=== PATIENT | female | born 1950 | race Caucasian/White ===

== ENCOUNTER → 2017-03-27 | Outpatient (CLI) | payer MEDICARE ==
[~2017-03-27] MED LIST: ACHYD1T PO; ALPR0.5T7 PO; AMLO5TAB2 PO; ASP81TEC PO; ASPI-999 PO; ATOR40TA70 PO; BUPR150T9 PO; BUPR75TA5 PO; CALC-196 PO; CALC-80 PO; CEPH500C PO; CHOL10003 PO; CHOL5000 PO; CYCL10TA9 PO; CYCL5TAB PO; DESV50TA PO; ESCI20TA38 PO; FAMO20TA3 PO; FENO134C PO; FENO135C PO; FISH1CAP15 PO; GEMF600T3 PO; LACT1CAP15 PO; LOSA50TA36 PO; LOSA50TA6 PO; METO100T2 PO; MTF500T PO; MULT-608 PO; NAPR-689 PO; NITR-65 PO; OMEP20TA2 PO; OXYB10TA PO; PRAM0.252 PO; PRAM0.5T2 PO; SCR1T1 PO; SIMV40TA4 PO; TAMS0.4C9 PO; TRAM-42 PO; TRAM50TA2 PO; TRAZ-144 PO; TRAZ150T42 PO
--- NOTE | 2017-03-31 09:32 | Diagnostic Imaging Report ---
EXAMINATION: Bilateral screening mammogram 2D views with tomosynthesis. The current study was also evaluated with a Computer Aided Detection (CAD) system. INDICATION: Screening. PERSONAL HISTORY: No current complaints stated on the questionnaire. COMPARISON: 08/23/2015. FINDINGS: The breasts are composed of heterogeneously dense parenchyma which may decrease mammographic sensitivity. The previously seen circumscribed nodules in the left breast appear slightly larger within the central aspect of the left breast. The right breast demonstrates no significant change in the dense parenchyma and benign-appearing calcifications. IMPRESSION: Enlarged circumscribed nodules in the central aspect of the left breast. These are likely related to cysts. An ultrasound evaluation of the left breast is recommended. ACR BI-RADS Category 0: Incomplete. (Needs additional imaging evaluation). Result letter will be mailed to the patient. Note: At least 10% of breast cancer is not imaged by mammography. Dictated by: Dictated on workstation # [id number]
== END ==
LOC: RAD 13:34
PROVIDERS: ATTEND Nurse Practitioner Family
DX: Z12.31 Encounter for screening mammogram for malignant neoplasm of breast (principal)
CPT/HCPCS: 77067

== ENCOUNTER → 2017-04-20 | Outpatient (CLI) | payer MEDICARE ==
--- NOTE | 2017-04-20 20:18 | Diagnostic Imaging Report ---
EXAM: Left breast ultrasound. INDICATION: Left breast nodules. FINDINGS: There are coarsely calcified nodules in the left breast which correlates with mammographic findings of 03/27/2017. There are also minimally complicated and simple cysts seen at 4:30 o'clock position, 6 cm from the nipple and at the 2 o'clock zone 8 cm from the nipple. There is also a simple cyst at 12 o'clock zone 2 cm from the nipple. These lesions appear to correlate with the nodules and calcifications seen on mammography with no suspicious mass identified otherwise in the four-quadrant retroareolar region of the left breast. IMPRESSION: Coarsely calcified lesions and cysts are seen explaining the nodules noted on recent mammogram with no suspicious mass. Annual screening mammogram is recommended. BI-RADS 2. ACR BI-RADS Category 2: Benign findings. Result letter will be mailed to the patient. Note: At least 10% of breast cancer is not imaged by mammography. Dictated by: Dictated on workstation # [id number]
== END ==
LOC: RAD 13:54
PROVIDERS: ATTEND Nurse Practitioner Family
DX: R92.1 Mammographic calcification found on diagnostic imaging of breast (principal)
CPT/HCPCS: 76641

== ENCOUNTER → 2017-09-14 | Outpatient (CLI) | payer MEDICARE ==
--- NOTE | 2017-09-14 16:43 | Diagnostic Imaging Report ---
INDICATION: Pain and swelling. Three views were obtained. FINDINGS: The alignment is normal. There are minimal degenerative changes. There is no fracture or dislocation. There appears to be small joint effusion. IMPRESSION: Mild degenerative changes with probable knee joint effusion. Dictated by: Dictated on workstation # [id number]
== END ==
LOC: RAD 16:03
PROVIDERS: ATTEND Nurse Practitioner Family
DX: M17.12 Unilateral primary osteoarthritis, left knee (principal)
CPT/HCPCS: 73562

== ENCOUNTER → 2017-11-16 | Outpatient (CLI) | payer MEDICARE ==
[2017-11-16 16:28] LABS: BASOPHILS # (AUTO) 0.1 10^3/uL (0.0-0.1); BASOPHILS % (AUTO) 1 % (0-10); EOSINOPHILS # (AUTO) 0.2 10^3/uL (0.0-0.3); EOSINOPHILS % (AUTO) 3 % (0-10); HEMATOCRIT 38 % (35-52); LYMPHOCYTES # (AUTO) 2.8 X 10^3 (1.0-4.0); LYMPHOCYTES % (AUTO) 32 % (12-44); MEAN CORPUSCULAR HEMOGLOBIN 30 PG (25-34); MEAN CORPUSCULAR HGB CONC 34 G/DL (32-36); MEAN CORPUSCULAR VOLUME 88 FL (80-99); MEAN PLATELET VOLUME 10.4 FL (7.4-10.4); MONOCYTES # (AUTO) 0.7 X 10^3 (0.0-1.0); MONOCYTES % (AUTO) 8 % (0-12); NEUTROPHILS % (AUTO) 57 % (42-75); PLATELET COUNT 264 10^3/uL (130-400); RED BLOOD COUNT 4.35 10^6/uL (4.35-5.85); RED CELL DISTRIBUTION WIDTH 13.9 % (10.0-14.5); WHITE BLOOD COUNT 8.7 10^3/uL (4.3-11.0)
[2017-11-16 16:51] LABS: ALBUMIN 4.6 GM/DL (3.2-4.5); BILIRUBIN,TOTAL 0.4 MG/DL (0.1-1.0); CALCIUM 10.3 MG/DL (8.5-10.1); CREATININE SERUM 1.01 MG/DL (0.60-1.30); POTASSIUM 4.2 MMOL/L (3.6-5.0); TOTAL PROTEIN 7.1 GM/DL (6.4-8.2)
== END ==
LOC: RT 16:16
PROVIDERS: ATTEND Nurse Practitioner Family
DX: R42 Dizziness and giddiness (principal)
CPT/HCPCS: 36415; 80053; 85025; 93005

== ENCOUNTER → 2017-12-10 | Outpatient (CLI) | payer MEDICARE | LOC: CARD 08:21 | PROVIDERS: ATTEND Internal Medicine Cardiovascular Disease | DX: R06.02 Shortness of breath (principal); E11.22 Type 2 diabetes mellitus with diabetic chronic kidney disease; N18.3 Chronic kidney disease, stage 3 (moderate); I12.9 Hypertensive chronic kidney disease with stage 1 through stage 4 chronic kidney disease, or unspecified chronic kidney disease; E78.5 Hyperlipidemia, unspecified; R53.83 Other fatigue; E66.9 Obesity, unspecified | CPT/HCPCS: 93306 ==

== ENCOUNTER → 2018-09-06 | Outpatient (CLI) | payer MEDICARE ==
[~2018-09-06] MED LIST changes: -LOSA50TA36 PO; +LOSA50TA63 PO
--- NOTE | 2018-09-06 20:11 | Diagnostic Imaging Report ---
EXAMINATION: PA and lateral Chest at 3:04 p.m. INDICATION: Shortness of breath. FINDINGS: The heart size is within normal limits and stable when compared to 11/09/2013. The lungs are clear. There is no sign of failure, pneumonia, or of a pleural effusion to indicate an acute abnormality. The mediastinum is not widened. The osseous structures are intact. In the interval since the prior exam, a dorsal stimulator device has been inserted. The leads of the device lie at approximately the level of T7-8. IMPRESSION: 1. There is no evidence for an acute cardiopulmonary abnormality. 2. There has been interval insertion of a dorsal stimulator device. Dictated by: Dictated on workstation # [id number]
== END ==
LOC: RAD 14:55
PROVIDERS: ATTEND Nurse Practitioner Family
DX: R06.02 Shortness of breath (principal); Z97.8 Presence of other specified devices
CPT/HCPCS: 71046

== ENCOUNTER → 2018-09-17 | Outpatient (CLI) | payer MEDICARE ==
[2018-09-17 16:35] LABS: BASOPHILS # (AUTO) 0.1 10^3/uL (0.0-0.1); BASOPHILS % (AUTO) 1 % (0-10); EOSINOPHILS # (AUTO) 0.3 10^3/uL (0.0-0.3); EOSINOPHILS % (AUTO) 3 % (0-10); HEMATOCRIT 38 % (35-52); HEMOGLOBIN 12.2 G/DL (11.5-16.0); LYMPHOCYTES # (AUTO) 2.8 X 10^3 (1.0-4.0); LYMPHOCYTES % (AUTO) 28 % (12-44); MEAN CORPUSCULAR HEMOGLOBIN 29 PG (25-34); MEAN CORPUSCULAR HGB CONC 32 G/DL (32-36); MEAN CORPUSCULAR VOLUME 90 FL (80-99); MEAN PLATELET VOLUME 10.4 FL (7.4-10.4); MONOCYTES % (AUTO) 10 % (0-12); NEUTROPHILS % (AUTO) 59 % (42-75); PLATELET COUNT 203 10^3/uL (130-400); RED CELL DISTRIBUTION WIDTH 13.5 % (10.0-14.5); WHITE BLOOD COUNT 10.1 10^3/uL (4.3-11.0)
[2018-09-17 17:01] LABS: ALBUMIN 4.2 GM/DL (3.2-4.5); BILIRUBIN,TOTAL 0.4 MG/DL (0.1-1.0); CALCIUM 9.9 MG/DL (8.5-10.1); CREATININE SERUM 1.19 MG/DL (0.60-1.30); POTASSIUM 4.3 MMOL/L (3.6-5.0); TOTAL PROTEIN 6.6 GM/DL (6.4-8.2)
== END ==
LOC: LAB 16:19
PROVIDERS: ATTEND Nurse Practitioner Family
DX: R10.9 Unspecified abdominal pain (principal)
CPT/HCPCS: 36415; 80053; 85025

== ENCOUNTER → 2018-12-07 | Outpatient (CLI) | payer MEDICARE ==
[~2018-12-07] MED LIST changes: +CATHETER FLUSH 10 ML SYR IV PRN; +REGADENOSON 0.4 MG/5 ML SYR (LEXISCAN) IV ONE
[2018-12-07 09:16] VITALS: BP 146/79
[2018-12-07 09:17] VITALS: BP 146/65
--- NOTE | 2018-12-08 01:10 | STRESS TEST ---
DATE OF SERVICE: 12/07/2018 RESTING AND POST REGADENOSON TECHNETIUM-99M TETROFOSMIN SPECT CT IMAGING ORDERING PHYSICIAN: Dr. Diaz. PRIMARY PHYSICIAN: . CLINICAL DIAGNOSIS: Coronary artery disease. Baseline images were carried out after injection of 10.89 mCi of technetium-99m Tetrofosmin. This was followed by 0.4 mg regadenoson and 29.8 mCi of technetium-99m Tetrofosmin for stress imaging. The patient reported shortness of breath following regadenoson infusion, which resolved in a few minutes. Review of images at rest and following stress does not indicate any distinct perfusion defects consistent with significant myocardial ischemia or infarction. Gated images show normal global left ventricular systolic function with normal regional wall motion. Left ventricular ejection fraction is calculated to be 69%. CONCLUSIONS: 1. No evidence of any significant myocardial ischemia or infarction on this study. 2. Normal regional wall motion. 3. Normal global left ventricular systolic function with a calculated ejection fraction of 69%. Job ID: [id number] DocumentID: [id number] Dictated Date: 12/07/2018 20:53:30 Manufacturing Lead Date: 12/08/2018 01:09:43 Dictated By: TONIE DIAZ MD, MA, FACP, FACC,
== END ==
LOC: CARD 06:59
PROVIDERS: ATTEND Internal Medicine Cardiovascular Disease
DX: I25.10 Atherosclerotic heart disease of native coronary artery without angina pectoris (principal); I65.29 Occlusion and stenosis of unspecified carotid artery; E11.9 Type 2 diabetes mellitus without complications; I10 Essential (primary) hypertension; I73.9 Peripheral vascular disease, unspecified
CPT/HCPCS: 78452; 93017

== ENCOUNTER 2019-02-04 08:16 | Outpatient (RCR) | payer MEDICARE ==
[~2019-02-04 08:16] MED LIST changes: -CATHETER FLUSH 10 ML SYR IV PRN; -OXYB10TA PO; +OXYB10TA2 PO; -REGADENOSON 0.4 MG/5 ML SYR (LEXISCAN) IV ONE; +TRM50T PO
[2019-03-06] MEDS ORDERED: ACHD5005 PO (09:41)
== END 2019-03-21 09:53 | disposition home or self-care (01) ==
PROVIDERS: ATTEND Nurse Practitioner Family
DX: M54.42 Lumbago with sciatica, left side (principal)

== ENCOUNTER 2019-03-06 08:26 | Emergency (ER) | payer MEDICARE ==
[~2019-03-06] VITALS: Ht 170.1 cm; Wt 95.1 kg
[~2019-03-06 08:26] MED LIST changes: +OXYB10TA PO; -OXYB10TA2 PO; -TRM50T PO
--- NOTE | 2019-03-06 08:44 | ED Lower Extremity ---
General Chief Complaint: Lower Extremity Stated Complaint: L FOOT PAIN Source: patient Exam Limitations: no limitations History of Present Illness Date Seen by Provider: Mar 06, 2019 Time Seen by Provider: 08:27 Initial Comments Patient presents to ER by private conveyance with chief complaint of left foot lateral metatarsal pain. She has a history of fracture in the same region a few years ago. She does follow up with egg tester as needed. She has been using T ylenol as needed. She has poor kidney function and diabetes so she does not take NSAIDs. She says the pain only comes when she steps down on the foot and is better when she wears a shoe that when she had an elevated or off loaded from weight she does not have any pain. Allergies and Home Medications Allergies Coded Allergies: phenazopyridine (Verified Allergy, Unknown, 09/10/15) levofloxacin (Verified Adverse Reaction, Mild, N/V, 07/27/15) Home Medications Alprazolam 0.5 Mg Tablet, 0.25 MG PO PRN, (Reported) Amlodipine Besylate 5 Mg Tablet, 5 MG PO DAILY, (Reported) Aspirin 81 Mg Tab.chew, 81 MG PO DAILY, (Reported) Bupropion HCl 150 Mg Tablet.er, 150 MG PO BID, (Reported) Calcium Carbonate/Vitamin D3 1 Each Tablet, 1 EACH PO DAILY, (Reported) Cholecalciferol 5,000 Unit Capsule, 5,000 UNIT PO DAILY, (Reported) Cyclobenzaprine HCl 10 Mg Tablet, 10 MG PO PRN PRN for MUSCLE SPASMS, (Reported) Famotidine 20 Mg Tablet, 20 MG PO DAILY, (Reported) Fenofibrate,Micronized 134 Mg Capsule, 134 MG PO DAILY, (Reported) Fish Oil/Dha/Epa 1 Each Capsule, 2 EACH PO DAILY, (Reported) Losartan Potassium 50 Mg Tablet, 50 MG PO BID, (Reported) Metformin Hcl 500 Mg Tablet, 250 MG PO DAILY, (Reported) TAKE 1/2 OF 500MG TAB Metoprolol Tartrate 100 Mg Tablet, 100 MG PO BID, (Reported) Multivitamins 1 Tab Tablet, 1 TAB PO DAILY, (Reported) Naproxen 500 Mg Tablet, 500 MG PO BID PRN for PAIN, (Reported) Oxybutynin Chloride 10 Mg Tab.er.24, 10 MG PO DAILY, (Reported) Pramipexole Di-HCl 0.5 Mg Tablet, 0.5 MG PO HS, (Reported) Tramadol HCl 50 Mg Tablet, 50 MG PO Q12H PRN for PAIN Prescribed by: ALISA HOLT on 10/03/15 1056 Patient Home Medication List Home Medication List Reviewed: Yes Review of Systems Constitutional: No chills, No diaphoresis EENTM: No ear discharge, No ear pain Respiratory: No cough, No short of breath Cardiovascular: No chest pain, No edema Gastrointestinal: No abdominal pain, No nausea Past Ehschqf-Vwzgss-Dsptlf Hx Patient Social History Alcohol Use: Denies Use Recreational Drug Use: No Smoking Status: Never a Smoker Former Smoker, Quit: Sep 27, 2001 2nd Hand Smoke Exposure: No Recent Foreign Travel: No Contact w/Someone Who Travel: No Recent Hopitalizations: Yes Immunizations Up To Date Date of Pneumonia Vaccine: Dec 24, 2014 Past Medical History Surgeries: Yes (HYST,L ROT.CUFF,BLADDER SLING X2, BILAT SACROILIAC JOINT INJECTION) Respiratory: No Cardiac: No Neurological: No Reproductive Disorders: No Female Reproductive Disorders: Denies Sexually Transmitted Disease: No HIV/AIDS: No Kidney Stones Gastrointestinal: Yes Gastroesophageal Reflux, Chronic Constipation Musculoskeletal: No Chronic Back Pain Endocrine: Yes (TAKES 250MG METFORMIN) Diabetes, Non-Insulin dep Loss of Vision: Bilateral Hearing Impairment: Denies Cancer: No Psychosocial: Yes Anxiety, Depression Integumentary: No Blood Disorders: No Adverse Reaction/Blood Tranf: No Physical Exam Vital Signs Vital Signs - First Documented 03/06/19 08:28 Temp 36.8 Pulse 76 Resp 18 B/P (MAP) 140/48 (78) O2 Delivery Room Air Capillary Refill : Height, Weight, BMI Height: 5'7.00" Weight: 183lbs. 0.0oz. 83.097234vu; 30.45 BMI Method: General Appearance: WD/WN, no apparent distress Respiratory: no respiratory distress, no accessory muscle use Knees: bilateral knee non-tender, bilateral knee normal inspection, bilateral knee no evidence of injury Ankles: left ankle non-tender, left ankle normal inspection, left ankle normal range of motion, left ankle no evidence of injury Feet: bilateral foot normal inspection, bilateral foot normal range of motion, bilateral foot no evidence of injury; left foot bone tenderness (fifth metatarsal), left foot pain (lateral left foot) Neurologic/Psychiatric: no motor/sensory deficits, alert, normal mood/affect, oriented x 3 Skin: normal color, warm/dry Progress/Results/Core Measures Results/Orders My Orders Orders - [place] Foot, Left, 3 Views (03/06/19 08:40) Vital Signs/I&O 03/06/19 08:28 Temp 36.8 Pulse 76 Resp 18 B/P (MAP) 140/48 (78) O2 Delivery Room Air Progress Progress Note : Time: 08:43 Progress Note I suspect the patient's experiencing metatarsalgia secondary to osteoarthritis. With her history of diabetes and occult fracture or pathologic fracture is a possibility. Planned obtain plain films and if the osseous structures are intact we can put her in an orthopedic shoe with follow-up with orthopedics. She has declined anything at this time for pain. Diagnostic Imaging Diagonstic Imaging: Xray Plain Films/CT/US/NM/MRI: other (left foot) Comments NAME: [facility] REC#: [id number] PT STATUS: REG ER : 1950 PHYSICIAN: [place] MD ADMIT DATE: 03/06/19/ER Draft Date of Exam:03/06/19 FOOT, LEFT, 3 VIEWS EXAM: Left foot at 8:59 INDICATION: Lateral foot pain 3 views were obtained. COMPARISON: There are no previous exams available for comparison. FINDINGS: On the lateral view, there is a linear lucency extending through the base of the 5th metatarsal. This finding cannot be identified on the other 2 projections and may merely be secondary to superimposition as opposed to a nondisplaced fracture. Even so, clinical follow-up is recommended. If further imaging is desired, then either CT or preferably MRI would be recommended. No other fracture or acute bony abnormality is appreciated. The soft tissues are unremarkable. IMPRESSION: 1. The linear lucency overlying the base of the 5th metatarsal on the lateral view may merely be secondary to superimposition as opposed to a non-displaced fracture. Recommendations as above. 2. There is no acute bony abnormality noted otherwise. Dictated on workstation # [id number] Dict: 03/06/19 0908 Trans: 03/06/19 0932 [facility] [id number] Interpreted by: KAYKAY WRIGHT MD Electronically signed by: Reviewed: Reviewed by Me Departure Impression Primary Impression: Fracture of fifth metatarsal bone of left foot Qualified Codes: S92.355A - Nondisplaced fracture of fifth metatarsal bone, left foot, initial encounter for closed fracture Disposition: HOME, SELF-CARE Condition: Stable Departure-Patient Inst. Decision time for Depature: 09:38 Referrals: ANA MONTOYA MD (PCP/Family) Primary Care Physician Patient Instructions: Stress Fracture of the Metatarsal Bone (DC) Add. Discharge Instructions: It's difficult to be certain but I suspect there may be a fracture in the fifth metatarsal of your left foot. I would recommend follow-up in about a week with either primary care or your egg tester. It would be reasonable at that time to repeat x-rays to see if there is evidence of a healing fracture to confirm our suspicion more if desired an MRI of the foot could be obtained. Rest the foot, ice it for 20 minutes every 4 hours for the first 2-3 days and elevated above the level of your heart when not in use. Gentle compression with an Steve bandage will be helpful for discomfort. A postop shoe will help reduce pain with walking. Tylenol 1000 mg every 8 hours as necessary for pain. For severe breakthrough pain you may use a hydrocodone one tablet every 6 hours however this will cause constipation and drowsiness. All discharge instructions reviewed with patient and/or family. Voiced understanding. Scripts Hydrocodone Bit/Acetaminophen (Hydrocodone/Acetaminophen 5/325mg Tablet) 1 Tab Tab 1 EACH PO Q4-6HR PRN for PAIN-MODERATE MDD 10 for 3 Days, #10 TAB 0 Refills Prov: [place] 03/06/19 [place] Mar 06, 2019 08:44
--- NOTE | 2019-03-06 08:56 | NUR ---
X RAY DONE AT BEDSIDE.
--- NOTE | 2019-03-06 09:33 | Diagnostic Imaging Report ---
EXAM: Left foot at 8:59 INDICATION: Lateral foot pain 3 views were obtained. COMPARISON: There are no previous exams available for comparison. FINDINGS: On the lateral view, there is a linear lucency extending through the base of the 5th metatarsal. This finding cannot be identified on the other 2 projections and may merely be secondary to superimposition as opposed to a nondisplaced fracture. Even so, clinical follow-up is recommended. If further imaging is desired, then either CT or preferably MRI would be recommended. No other fracture or acute bony abnormality is appreciated. The soft tissues are unremarkable. IMPRESSION: 1. The linear lucency overlying the base of the 5th metatarsal on the lateral view may merely be secondary to superimposition as opposed to a non-displaced fracture. Recommendations as above. 2. There is no acute bony abnormality noted otherwise. Dictated by: Dictated on workstation # [id number]
[2019-03-06] MEDS ORDERED: ACHD5005 PO (09:41)
[2019-03-06 09:53] VITALS: BP 140/48
== END 2019-03-06 09:52 | disposition home or self-care (01) ==
LOC: EDUNIT# 08:26 → ER 08:27
DX: S92.352A Displaced fracture of fifth metatarsal bone, left foot, initial encounter for closed fracture (principal); E11.9 Type 2 diabetes mellitus without complications; K21.9 Gastro-esophageal reflux disease without esophagitis; F41.9 Anxiety disorder, unspecified; F32.9 Major depressive disorder, single episode, unspecified; Z79.82 Long term (current) use of aspirin; Z79.84 Long term (current) use of oral hypoglycemic drugs; Z87.891 Personal history of nicotine dependence; Z90.710 Acquired absence of both cervix and uterus; Z87.442 Personal history of urinary calculi; Z87.81 Personal history of (healed) traumatic fracture; Z88.1 Allergy status to other antibiotic agents; Z88.8 Allergy status to other drugs, medicaments and biological substances; X58.XXXA Exposure to other specified factors, initial encounter
CPT/HCPCS: 73630

== ENCOUNTER → 2019-04-08 | Outpatient (CLI) | payer MEDICARE ==
[~2019-04-08] MED LIST changes: +ACHD5005 PO; +RT-ALBUTEROL SULF 2.5 MG/3 ML PRE-MIX VIAL INH ONE
== END ==
LOC: RT 12:09
PROVIDERS: ATTEND Nurse Practitioner Family
DX: G47.10 Hypersomnia, unspecified (principal); J30.9 Allergic rhinitis, unspecified
CPT/HCPCS: 94060; 94640; 94726; 94729; 94761

== ENCOUNTER 2019-04-15 20:09 | Outpatient (CLI) | payer MEDICARE ==
[~2019-04-15 20:09] MED LIST changes: -RT-ALBUTEROL SULF 2.5 MG/3 ML PRE-MIX VIAL INH ONE
== END 2019-04-16 06:10 | disposition home or self-care (01) ==
LOC: SLEEP 20:09
PROVIDERS: ATTEND Nurse Practitioner Family
DX: G47.10 Hypersomnia, unspecified (principal); G47.36 Sleep related hypoventilation in conditions classified elsewhere; R06.89 Other abnormalities of breathing
CPT/HCPCS: 95810

== ENCOUNTER → 2019-04-22 | Outpatient (CLI) | payer MEDICARE ==
--- NOTE | 2019-04-22 16:51 | Diagnostic Imaging Report ---
EXAMINATION: Lumbosacral spine 2 or 3 views HISTORY: Low back pain. COMPARISON: 04/04/2013. FINDINGS: There is mild L2/L3 degenerative disc disease. Spinal stimulator is present. There is a calcified infrarenal abdominal aortic aneurysm. This measures 4 cm, but its size is likely inaccurate when measured by plain film. Vertebral body heights are normal. No fracture is seen. IMPRESSION: 1. Mild L2/L3 degenerative disc disease. 2. Infrarenal abdominal aortic aneurysm, likely 4 cm. Dictated by: Dictated on workstation # [id number]
== END ==
LOC: RAD 16:01
PROVIDERS: ATTEND Nurse Practitioner Family
DX: M51.36 Other intervertebral disc degeneration, lumbar region (principal); I71.4 Abdominal aortic aneurysm, without rupture; Z96.89 Presence of other specified functional implants
CPT/HCPCS: 72100

== ENCOUNTER → 2019-05-13 | Outpatient (CLI) | payer MEDICARE ==
[~2019-05-13] MED LIST changes: +CATHETER FLUSH 10 ML SYR IV PRN; +HOLD METFORMIN - RECEIVED CONTRAST 20 ML VIAL IV SCH; +IOHEXOL 350 MG/ML 100 ML (OMNIPAQUE 350) VIAL IV ONE; +NS 100 ML (IVPB) BAG IV ONE
[2019-05-13 10:54] LABS: CREATININE SERUM 1.18 MG/DL (0.60-1.30)
--- NOTE | 2019-05-13 13:44 | Diagnostic Imaging Report ---
EXAMINATION: CT Chest with intravenous contrast. TECHNIQUE: Multiple contiguous axial images were obtained through the chest after the uneventful administration of intravenous contrast. All CT scans use one or more of the following dose optimizing techniques: automated exposure control, MA and/or KvP adjustment based on a patient size and exam type, or iterative reconstruction. HISTORY: EMPHSYSEMA, COPD, COMPARISON: None available. FINDINGS: The lungs are clear without edema or pneumonia. No pleural effusion or pneumothorax. No suspicious nodules. Heart size is normal. No pericardial effusion. Aorta is normal in caliber. There is no axillary or supraclavicular lymphadenopathy. There is no mediastinal lymphadenopathy. There are moderate coronary artery calcifications. There is irregular plaque in the abdominal aorta resulting in moderate stenosis just at the level of the renal arteries. There are no suspicious osseous lesions. IMPRESSION: 1. Clear lungs. 2. Moderate stenosis of the infrarenal abdominal aorta due to irregular plaquing. Dictated by: Dictated on workstation # [id number]
== END ==
LOC: RAD 10:23
PROVIDERS: ATTEND Nurse Practitioner Family
DX: J43.9 Emphysema, unspecified (principal); I70.0 Atherosclerosis of aorta
CPT/HCPCS: 36415; 71260; 82565; 84520

== ENCOUNTER → 2019-07-12 | Outpatient (CLI) | payer MEDICARE ==
[~2019-07-12] MED LIST changes: -CATHETER FLUSH 10 ML SYR IV PRN; -HOLD METFORMIN - RECEIVED CONTRAST 20 ML VIAL IV SCH; -IOHEXOL 350 MG/ML 100 ML (OMNIPAQUE 350) VIAL IV ONE; -NS 100 ML (IVPB) BAG IV ONE; -OXYB10TA PO; +OXYB10TA29 PO; +TRM50T PO
== END ==
LOC: RAD 15:06
PROVIDERS: ATTEND Nurse Practitioner Family
DX: I70.213 Atherosclerosis of native arteries of extremities with intermittent claudication, bilateral legs (principal)
CPT/HCPCS: 93923

== ENCOUNTER → 2019-08-26 | Outpatient (CLI) | payer MEDICARE ==
--- NOTE | 2019-08-26 09:41 | Diagnostic Imaging Report ---
INDICATION: Injury to right foot. AP, oblique, lateral views of the right foot are obtained. There appears to be an avulsion fracture of the base of the 5th metatarsal, which appears acute. Remaining bony structures are intact. There is no dislocation. IMPRESSION: Acute avulsion fracture of the base of the 5th metatarsal. Dictated by: Dictated on workstation # [id number]
== END ==
LOC: RAD 09:16
PROVIDERS: ATTEND Nurse Practitioner Family
DX: S92.351A Displaced fracture of fifth metatarsal bone, right foot, initial encounter for closed fracture (principal); X58.XXXA Exposure to other specified factors, initial encounter
CPT/HCPCS: 73630

== ENCOUNTER 2019-12-21 08:56 | Day surgery (SDC) | payer MEDICARE ==
[~2019-12-21] VITALS: Ht 170.2 cm; Wt 95.1 kg
[2019-12-21] VITALS (9 sets, daily range): BP systolic 108–144; BP diastolic 53–79
[2019-12-21 09:51] LABS: HEMOGLOBIN 12.6 G/DL (11.5-16.0); MEAN PLATELET VOLUME 10.9 FL (7.4-10.4); RED CELL DISTRIBUTION WIDTH 15.4 % (10.0-14.5); WHITE BLOOD COUNT 5.5 10^3/uL (4.3-11.0)
[2019-12-21 10:09] LABS: INR 0.9 (0.8-1.4); PROTHROMBIN TIME PATIENT 12.4 SEC (12.2-14.7)
--- OUTSIDE RECORDS SUMMARY | 2019-12-21 10:26 | XMS REPORT | Continuity of Care Document ---
Author Organization Unknown Address Unknown Phone Unavailable Allergies Active Description Code Type Severity Reaction Onset Reported/Identified Relationship to Patient Clinical Status Yes levofloxacin [id number] Drug Allergy Mild N/V 09/10/2015 Yes phenazopyridine [id number] D rug Allergy Unknown N/A 09/10/2015 Medications There is no data. Problems Date Dx Coded Attending Type Code Diagnosis Diagnosed By KIM MCCOY Ot M54.42 LUMBAGO WITH SCIATICA, LEFT SIDE 02/13/2012 461.9 SINU SITIS ACUTE 02/13/2012 461.9 SINU SITIS ACUTE 03/26/2012 709.9 SKIN LESIONS 03/26/2012 709.9 SKIN LESIONS 05/14/2012 V04.81 FLU DX (3 YRS AND ABOVE, IM) 05/14/2012 V04.81 FLU DX (3 YRS AND ABOVE, IM) 06/25/2012 V05.8 ZOST AVAX DX 06/06/2013 ANA MONTOYA MD Ot 724.2 LUMBAGO 06/06/2013 ANA MONTOYA MD Ot V57.1 PHYSICAL THERAPY NEC 06/17/2013 HUMPHREY JEAN MD Ot 721. 3 LUMBOSACRAL SPONDYLOSIS 06/17/2013 HUMPHREY JEAN MD Ot V58. 69 OTH MED,LT,CURRENT USE 08/22/2013 HUMPHREY JEAN MD Ot 721. 3 LUMBOSACRAL SPONDYLOSIS 08/22/2013 HUMPHREY JEAN MD Ot 722. 52 LUMB/LUMBOSAC DISC DEGEN 08/22/2013 HUMPHREY JEAN MD Ot 729. 1 MYALGIA AND MYOSITIS NOS 08/22/2013 HUMPHREY JEAN MD, Ot V58. 69 OTH MED,LT,CURRENT USE 12/09/2013 HUMPHREY JEAN MD Ot 721. 3 LUMBOSACRAL SPONDYLOSIS 12/09/2013 HUMPHREY JEAN MD, Ot 722. 52 LUMB/LUMBOSAC DISC DEGEN 12/09/2013 HUMPHREY JEAN MD Ot 729. 1 MYALGIA AND MYOSITIS NOS 12/09/2013 HUMPHREY JEAN MD Ot V58. 69 OTH MED,LT,CURRENT USE 02/03/2014 HUMPHREY JEAN MD Ot 721. 3 LUMBOSACRAL SPONDYLOSIS 02/03/2014 HUMPHREY JEAN MD Ot 722. 52 LUMB/LUMBOSAC DISC DEGEN 02/03/2014 HUMPHREY JEAN MD Ot 729. 1 MYALGIA AND MYOSITIS NOS 02/03/2014 HUMPHREY JEAN MD, Ot V58. 69 OTH MED,LT,CURRENT USE 03/24/2014 HUMPHREY JEAN MD Ot 721. 3 LUMBOSACRAL SPONDYLOSIS 03/24/2014 HUMPHREY JEAN MD Ot 722. 52 LUMB/LUMBOSAC DISC DEGEN 03/24/2014 HUMPHREY JEAN MD Ot 729. 1 MYALGIA AND MYOSITIS NOS 03/24/2014 HUMPHREY JEAN MD Ot V58. 69 OTH MED,LT,CURRENT USE 05/15/2014 REINA PRYOR Ot 272.4 05/15/2014 REINA PRYOR Ot 401.9 05/15/2014 REINA PRYOR Ot 414.00 05/15/2014 REINA PRYOR Ot 429.9 05/15/2014 REINA PRYOR Ot 441.4 05/16/2014 REINA PRYOR Ot 272.4 05/16/2014 REINA PRYOR Ot 401.9 05/16/2014 REINA PRYOR K Ot 414.00 05/16/2014 REINA PRYOR K Ot 429.9 05/16/2014 REINA PRYOR Ot 441.4 06/30/2014 ANA MONTOYA MD Ot 327.24 IDIOPATH SLEEP RELATED NON-OBSTRUC ALVEO 06/30/2014 ANA MONTOYA MD Ot 786.09 RESPIRATORY ABNORM NEC 07/26/2014 REINA PRYOR Ot 250.00 07/26/2014 REINA PRYOR Ot 401.9 07/26/2014 REINA PRYOR Ot 414.00 07/26/2014 REINA PRYOR Ot 429.9 07/26/2014 LEEROY WHIPPLE MD Ot 272.4 07/26/2014 LEEROY WHIPPLE MD Ot 333.94 07/26/2014 LEEROY WHIPPLE MD Ot 443.9 07/26/2014 LEEROY WHIPPLE MD Ot 721.3 08/29/2014 Ot 250.00 08/29/2014 Ot 720.2 08/29/2014 Ot V74.8 09/15/2014 Ot 250.00 09/15/2014 Ot 720.2 09/15/2014 Ot V74.8 11/20/2014 LIZ HARMON MD Ot 250.0 0 DIAB RADHA WO COMPL, TYPE II OR UNSPEC TY 11/20/2014 LIZ HARMON MD Ot 311 DEPRESSIVE DISORDER NEC 11/20/2014 LIZ HARMON MD Ot 401.9 HYPERTENSION NOS 11/20/2014 LIZ HARMON MD Ot 720.2 SACROILIITIS NEC 11/20/2014 LIZ HARMON MD Ot 722.5 2 LUMB/LUMBOSAC DISC DEGEN 11/20/2014 LIZ HARMON MD Ot V74.8 SCREEN-BACTERIAL DIS NEC 12/08/2014 HUMPHREY JEAN MD Ot 721. 3 LUMBOSACRAL SPONDYLOSIS 12/08/2014 HUMPHREY JEAN MD Ot 729. 1 MYALGIA AND MYOSITIS NOS 12/08/2014 HUMPHREY JEAN MD Ot V58. 69 OTH MED,LT,CURRENT USE 12/15/2014 HUMPHREY JEAN MD Ot 721. 3 LUMBOSACRAL SPONDYLOSIS 12/15/2014 HUMPHREY JEAN MD Ot 729. 1 MYALGIA AND MYOSITIS NOS 12/15/2014 HUMPHREY JEAN MD Ot V58. 69 OTH MED,LT,CURRENT USE 12/21/2014 ANGELO AVILA DO Ot 724.5 BACKACHE NOS 12/21/2014 ANGELO AVILA DO Ot 789.00 ABDOMINAL PAIN, UNSPECIFIED SITE 12/24/2014 JANANA PRICE MD Ot 250.00 DIAB RADHA WO COMPL, TYPE II OR UNSPEC TY 12/24/2014 ANA MONTOYA MD Ot 272.4 HYPERLIPIDEMIA NEC/NOS 12/24/2014 ANA MONTOYA MD Ot 401.9 HYPERTENSION NOS 12/24/2014 ANA MONTOYA MD Ot 530.81 ESOPHAGEAL REFLUX 12/24/2014 ANA MONTOYA MD Ot 59 1 HYDRONEPHROSIS 12/24/2014 ANA MONTOYA MD Ot 592.1 CALCULUS OF URETER 12/24/2014 ANA MONTOYA MD Ot V03.82 PROPHYLACTIC VACC AGAINST STREPTOCOCCUS 12/29/2014 KIM MCCOY AUTOMOBILE DAMAGE FIELD APPRAISER Ot 785.0 01/02/2015 BIBI VALERA, ABHINAV Yoon Ot 592.0 CALCULUS OF KIDNEY 01/02/2015 BIBI VALERA, ABHINAV Yoon Ot V58.6 9 [facility],,CURRENT USE 01/03/2015 KIM MCCOY AUTOMOBILE DAMAGE FIELD APPRAISER Ot 785.0 01/26/2015 BIBI VALERA, ABHINAV A Ot 592.1 02/01/2015 BIBI VALERA, ABHINAV A Ot 592.1 03/07/2015 BIBI VALERA, ABHINAV A Ot 592.0 03/07/2015 BIBI VALERA, ABHINAV A Ot V67.0 9 03/19/2015 BIBI VALERA, ABHINAV A Ot 592.0 03/19/2015 BIBI VALERA, ABHINAV A Ot V67.0 9 04/30/2015 Ot 793.89 04/30/2015 Ot V76.12 04/30/2015 Ot 793.89 04/30/2015 ANA MONTOYA MD Ot 793.89 04/30/2015 KIM MCCOY AUTOMOBILE DAMAGE FIELD APPRAISER Ot 724.2 04/30/2015 REINA PRYOR Ot 272.4 04/30/2015 REINA PRYOR Ot 401.9 04/30/2015 REINA PRYOR Ot 414.00 04/30/2015 REINA PRYOR Ot 429.9 04/30/2015 REINA PRYOR Ot 441.4 04/30/2015 REINA PRYOR Ot 250.00 04/30/2015 JL ANNE, REINA Gonzalez Ot 401.9 04/30/2015 JL ANNE, REINA Gonzalez Ot 414.00 04/30/2015 JL ANNE, REINA Gonzalez Ot 429.9 04/30/2015 JAN VALERA, ANA Yoon Ot 793.89 04/30/2015 HUMPHREY JEAN MD Ot 722. 51 04/30/2015 HUMPHREY JEAN MD Ot 737. 30 04/30/2015 ANA MONTOYA MD Ot 288.60 04/30/2015 ANA MONTOYA MD Ot 793.19 04/30/2015 LEEROY WHIPPLE MD Ot 272.4 04/30/2015 LEEROY WHIPPLE MD Ot 333.94 04/30/2015 LEEROY WHIPPLE MD Ot 443.9 04/30/2015 LEEROY WHIPPLE MD Ot 721.3 04/30/2015 LIZ HARMON MD Ot 724.0 2 04/30/2015 Ot 720.2 04/30/2015 Ot V72.84 04/30/2015 Ot 250.00 04/30/2015 Ot 720.2 04/30/2015 Ot V74.8 04/30/2015 LIZ HARMON MD Ot 720.2 04/30/2015 LIZ HARMON MD Ot V72.8 4 04/30/2015 KIM MCCOY AUTOMOBILE DAMAGE FIELD APPRAISER Ot 785.0 04/30/2015 ABHINAV MTZ MD Ot 592.1 04/30/2015 ABHINAV MTZ MD Ot V72.8 4 04/30/2015 ABHINAV MTZ MD Ot 592.0 04/30/2015 ABHINAV MTZ MD Ot V67.0 9 05/24/2015 MARLENE VALERA FACC, ALI FACP CCDS Ot E11.22 05/24/2015 MARLENE VALERA FACC, ALI FACP CCDS Ot E78.1 05/24/2015 MARLENE VALERA FACC, ALI FACP CCDS Ot N18.3 05/24/2015 MARLENE VALERA FACC, ALI FACP CCDS Ot R06.02 05/24/2015 MARLENE VALERA FACC, ALI FACP CCDS Ot R53.83 06/04/2015 MARLENE VALERA [facility], [facility] CCDS Ot E11.22 06/04/2015 MARLENE VALERA [facility], [facility] CCDS Ot E78.1 06/04/2015 MARLENE VALERA [facility], [facility] CCDS Ot N18.3 06/04/2015 MARLENE VALERA [facility], [facility] CCDS Ot R06.02 06/04/2015 MARLENE VALERA [facility], [facility] CCDS Ot R53.83 07/27/2015 ALISA HOLT MD Ot L72.3 SEBACEOUS CYST 07/27/2015 ALISA HOLT MD Ot Z79.899 OTHER MUTUEL TELLER (CURRENT) DRUG THERAPY 08/24/2015 KIM MCCOY Ot Z12.31 09/06/2015 ELI MENDEZ APRN Ot N6 3 09/07/2015 ALISA HOLT MD Ot Z01.818 09/07/2015 ALISA HOLT MD Ot Z01.818 09/07/2015 ALISA HOLT MD Ot Z01.818 ENCOUNTER FOR OTHER PREPROCEDURAL EXAMIN 09/10/2015 ELI MENDEZ APRN Ot N6 3 09/10/2015 ALISA HOLT MD Ot Z01.818 09/10/2015 ALISA HOLT MD Ot K57.90 DVRTCLOS OF INTEST, PART UNSP, W/O PERF 09/10/2015 ALISA HOLT MD Ot K63.5 POLYP OF COLON 09/10/2015 ALISA HOLT MD Ot Z0 9 ENCNTR FOR F/U EXAM AFT TRTMT FOR COND O 09/11/2015 ALISA HOLT MD Ot K57.90 09/11/2015 ALISA HOLT MD Ot K63.5 09/11/2015 ALISA HOLT MD Ot Z0 9 09/12/2015 KIM MCCOY Ot Z12.31 09/26/2015 ELI MENDEZ APRN Ot N6 3 UNSPECIFIED LUMP IN BREAST 09/28/2015 ALISA HOLT MD Ot L98.9 DISORDER OF THE SKIN AND SUBCUTANEOUS TI 09/28/2015 ALISA HOLT MD Ot Z01.818 ENCOUNTER FOR OTHER PREPROCEDURAL EXAMIN 09/28/2015 ALISA HOLT MD Ot L98.9 DISORDER OF THE SKIN AND SUBCUTANEOUS TI 09/28/2015 ALISA HOLT MD Ot Z01.818 ENCOUNTER FOR OTHER PREPROCEDURAL EXAMIN 10/03/2015 ALISA HOLT MD Ot E11.9 TYPE 2 DIABETES MELLITUS WITHOUT COMPLIC 10/03/2015 ALISA HOLT MD Ot L82.1 OTHER SEBORRHEIC KERATOSIS 10/03/2015 ALISA HOLT MD Ot L98.9 DISORDER OF THE SKIN AND SUBCUTANEOUS TI 10/03/2015 ALISA HOLT MD Ot Z11.2 ENCOUNTER FOR SCREENING FOR OTHER BACTER 10/03/2015 ELI MENDEZ APRN Ot N6 3 UNSPECIFIED LUMP IN BREAST 10/04/2015 ALISA HOLT MD Ot L98.9 DISORDER OF THE SKIN AND SUBCUTANEOUS TI 10/04/2015 ALISA HOLT MD Ot Z01.818 ENCOUNTER FOR OTHER PREPROCEDURAL EXAMIN 10/05/2015 ALISA HOLT MD Ot E11.9 TYPE 2 DIABETES MELLITUS WITHOUT COMPLIC 10/05/2015 ALISA HOLT MD Ot L82.1 OTHER SEBORRHEIC KERATOSIS 10/05/2015 ALISA HOLT MD Ot Z11.2 ENCOUNTER FOR SCREENING FOR OTHER BACTER 05/13/2016 Ot 793.89 OTH (ABN) FINDINGS ON RADIOLOGICAL EXAMI 05/13/2016 Ot V76.12 OTH SCREEN MAMMO- MALIGN NEOPLASM OF [place] 05/13/2016 Ot 793.89 OTH (ABN) FINDINGS ON RADIOLOGICAL EXAMI 05/13/2016 ANA MONTOYA MD Ot 793.89 OTH (ABN) FINDINGS ON RADIOLOGICAL EXAMI 05/13/2016 KIM MCCOY AUTOMOBILE DAMAGE FIELD APPRAISER Ot 724.2 LUMBAGO 05/13/2016 REINA PRYOR Ot 272.4 HYPERLIPIDEMIA NEC/NOS 05/13/2016 REINA PRYOR Ot 401.9 HYPERTENSION NOS 05/13/2016 ERINA PRYOR Ot 414.00 CORON ATHEROSCLER NOS TYPE VESSEL, NATIV 05/13/2016 REINA PRYOR Ot 429.9 HEART DISEASE NOS 05/13/2016 JL ANNE REINA K Ot 441.4 ABDOM AORTIC ANEURYSM 05/13/2016 JL ANNE REINA K Ot 250.00 DIAB RADHA WO COMPL, TYPE II OR UNSPEC TY 05/13/2016 JL ANNE REINA K Ot 401.9 HYPERTENSION NOS 05/13/2016 JL ANNE REINA Carlos Ot 414.00 CORON ATHEROSCLER NOS TYPE VESSEL, NATIV 05/13/2016 JL ANNE REINA K Ot 429.9 HEART DISEASE NOS 05/13/2016 ANA MONTOYA MD Ot 793.89 OTH (ABN) FINDINGS ON RADIOLOGICAL EXAMI 05/13/2016 TED VALERA, HUMPHREY Rico Ot 722. 51 THORACIC DISC DEGEN 05/13/2016 HUMPHREY JEAN MD Ot 737. 30 IDIOPATHIC SCOLIOSIS 05/13/2016 JAN VALERA, ANA Yoon Ot 288.60 LEUKOCYTOSIS, UNSPECIFIED 05/13/2016 ANA MONTOYA MD Ot 793.19 OTHER NONSPECIFIC ABNORMAL FINDING OF RA[place] 05/13/2016 SARABJIT VALERA, LEEROY Donovan Ot 272.4 HYPERLIPIDEMIA NEC/NOS 05/13/2016 LEEROY WHIPPLE MD Ot 333.94 RESTLESS LEGS SYNDROME 05/13/2016 LEEROY WHIPPLE MD Ot 443.9 PERIPH VASCULAR DIS NOS 05/13/2016 LEEROY WHIPPLE MD Ot 721.3 LUMBOSACRAL SPONDYLOSIS 05/13/2016 LIZ HARMON MD Ot 724.0 2 SPINAL STENOSIS, LUMBAR REG, W/OUT NEURO 05/13/2016 Ot 720.2 SACR OILIITIS NEC 05/13/2016 Ot V72.84 EXA M PRE- OPERATIVE NOS 05/13/2016 Ot 250.00 FROYLAN B RADHA WO COMPL, TYPE II OR UNSPEC TY 05/13/2016 Ot 720.2 SACR OILIITIS NEC 05/13/2016 Ot V74.8 SCRE EN-BACTERIAL DIS NEC 05/13/2016 LIZ HARMON MD Ot 720.2 SACROILIITIS NEC 05/13/2016 LIZ HARMON MD Ot V72.8 4 EXAM PRE-OPERATIVE NOS 05/13/2016 KIM MCCOY AUTOMOBILE DAMAGE FIELD APPRAISER Ot 785.0 TACHYCARDIA NOS 05/13/2016 ABHINAV MTZ MD Ot 592.1 CALCULUS OF URETER 05/13/2016 ABHINAV MTZ MD Ot V72.8 4 EXAM PRE-OPERATIVE NOS 05/13/2016 ABHINAV MTZ MD Ot 592.0 CALCULUS OF KIDNEY 05/13/2016 ABHINAV MTZ MD Ot V67.0 9 SURGERY FOLLOW-UP, OTHER SURGERY 05/13/2016 MARLENE VALERA FACC, ALI FACP CCDS Ot 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 HANDLING SUPERVISOR 05/13/2016 MARLENE AVLERA FACC, ALI FACP CCDS Ot 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 05/13/2016 MARLENE VALERA FACC, ALI FACP CCDS Ot N18.3 CHRONIC KIDNEY DISEASE, STAGE 3 (MODERAT 05/13/2016 MARLENE VALERA FACC, ALI FACP CCDS Ot R06.02 SHORTNESS OF BREATH 05/13/2016 MARLENE VALERA FACC, ALI FACP CCDS Ot R53.83 OTHER FATIGUE 05/13/2016 YANET VALERA, ALISA Wallace Ot L72.3 SEBACEOUS CYST 05/13/2016 YANET VALERA, ALISA Wallace Ot Z01.818 ENCOUNTER FOR OTHER PREPROCEDURAL EXAMIN 05/13/2016 KIM MCCOY AUTOMOBILE DAMAGE FIELD APPRAISER Ot Z12.31 ENCNTR SCREEN MAMMOGRAM FOR MALIGNANT NE 05/13/2016 ELI MENDEZ SALES ATTENDANT Ot N6 3 UNSPECIFIED LUMP IN BREAST 05/13/2016 TEJAL RINCON AUTOMOBILE DAMAGE FIELD APPRAISER Ot I25.10 ATHSCL HEART DISEASE OF [place] CORONARY 05/13/2016 TEJAL RINCON L AUTOMOBILE DAMAGE FIELD APPRAISER Ot I25.10 ATHSCL HEART DISEASE OF [place] CORONARY 05/13/2016 CARI RINCONHER L AUTOMOBILE DAMAGE FIELD APPRAISER Ot I25.10 ATHSCL HEART DISEASE OF [place] CORONARY 05/14/2016 CARI RINCONHER L AUTOMOBILE DAMAGE FIELD APPRAISER Ot I25.10 ATHSCL HEART DISEASE OF [place] CORONARY 05/14/2016 TEJAL RINCON L AUTOMOBILE DAMAGE FIELD APPRAISER Ot E78.5 HYPERLIPIDEMIA, UNSPECIFIED 05/14/2016 MCKENZIE TEJAL L AUTOMOBILE DAMAGE FIELD APPRAISER Ot I 10 ESSENTIAL (PRIMARY) HYPERTENSION 05/14/2016 MCKENZIE TEJAL L AUTOMOBILE DAMAGE FIELD APPRAISER Ot I25.10 ATHSCL HEART DISEASE OF [place] CORONARY 05/14/2016 BAIMA, TEJAL L AUTOMOBILE DAMAGE FIELD APPRAISER Ot R07.9 CHEST PAIN, UNSPECIFIED 06/09/2016 BAITEJAL BERNABE AUTOMOBILE DAMAGE FIELD APPRAISER Ot E78.5 HYPERLIPIDEMIA, UNSPECIFIED 06/09/2016 BAITEJAL BERNABE L AUTOMOBILE DAMAGE FIELD APPRAISER Ot I 10 ESSENTIAL (PRIMARY) HYPERTENSION 06/09/2016 BAIMATEJAL L AUTOMOBILE DAMAGE FIELD APPRAISER Ot I25.10 ATHSCL HEART DISEASE OF [place] CORONARY 06/09/2016 TEJAL RINCON AUTOMOBILE DAMAGE FIELD APPRAISER Ot R07.9 CHEST PAIN, UNSPECIFIED 06/11/2016 BAITEJAL BERNABE L AUTOMOBILE DAMAGE FIELD APPRAISER Ot E78.5 HYPERLIPIDEMIA, UNSPECIFIED 06/11/2016 BAIMATEJAL AUTOMOBILE DAMAGE FIELD APPRAISER Ot I 10 ESSENTIAL (PRIMARY) HYPERTENSION 06/11/2016 BAITEJAL BERNABE AUTOMOBILE DAMAGE FIELD APPRAISER Ot I25.10 ATHSCL HEART DISEASE OF [place] CORONARY 06/11/2016 TEJAL RINCON AUTOMOBILE DAMAGE FIELD APPRAISER Ot R07.9 CHEST PAIN, UNSPECIFIED 04/20/2017 ELI MENDEZ SALES ATTENDANT Ot Z12.31 ENCNTR SCREEN MAMMOGRAM FOR MALIGNANT NE 04/21/2017 ELI MENDEZ SALES ATTENDANT Ot R92.1 MAMMOGRAPHIC CALCIFCN FOUND ON DIAGNOSTI 05/12/2017 ELI MENDEZ SALES ATTENDANT Ot R92.1 MAMMOGRAPHIC CALCIFCN FOUND ON DIAGNOSTI 05/20/2017 ELI MENDEZ SALES ATTENDANT Ot R92.1 MAMMOGRAPHIC CALCIFCN FOUND ON DIAGNOSTI 09/15/2017 KIM MCCOY AUTOMOBILE DAMAGE FIELD APPRAISER Ot M17.12 UNILATERAL PRIMARY OSTEOARTHRITIS, LEFT 10/06/2017 KIM MCCOY AUTOMOBILE DAMAGE FIELD APPRAISER Ot M17.12 UNILATERAL PRIMARY OSTEOARTHRITIS, LEFT 10/14/2017 KIM MCCOY AUTOMOBILE DAMAGE FIELD APPRAISER Ot M17.12 UNILATERAL PRIMARY OSTEOARTHRITIS, LEFT 11/22/2017 PHILLIP PORTILLO GRAPPLE CREW LEADER-C Ot R42 DIZZINESS AND GIDDINESS 12/08/2017 BANDAR PHILLIP GRAPPLE CREW LEADER-C Ot R42 DIZZINESS AND GIDDINESS 12/11/2017 MARLENE VALERA FACC, TONIE FACP CCDS Ot 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 HANDLING SUPERVISOR 12/11/2017 MARLENE VALERA FACC, TONIE FACP CCDS Ot E66.9 OBESITY, UNSPECIFIED 12/11/2017 MARLENE VALERA FACC, TONIE FACP CCDS Ot E78.5 HYPERLIPIDEMIA, UNSPECIFIED 12/11/2017 MARLENE VALERA FACC, ALI FACP CCDS Ot I12.9 HYPERTENSIVE CHRONIC KIDNEY DISEASE W ST 12/11/2017 MARLENE VALERA FAC, ALI FACP CCDS Ot N18.3 CHRONIC KIDNEY DISEASE, STAGE 3 (MODERAT 12/11/2017 MARLENE VALERA FAC, ALI FACP CCDS Ot R06.02 SHORTNESS OF BREATH 12/11/2017 MARLENE VALERA FAC, ALI FACP CCDS Ot R53.83 OTHER FATIGUE 12/16/2017 PHILLIP PORTILLO [employer] LEADER-C Ot R42 DIZZINESS AND GIDDINESS 07/29/2018 ANA MONTOYA MD Ot 793.89 OTH (ABN) FINDINGS ON RADIOLOGICAL EXAMI 07/29/2018 KIM MCCOY AUTOMOBILE DAMAGE FIELD APPRAISER Ot 724.2 LUMBAGO 07/29/2018 REINA PRYOR Ot 272.4 HYPERLIPIDEMIA NEC/NOS 07/29/2018 REINA PRYOR Ot 401.9 HYPERTENSION NOS 07/29/2018 REINA PRYOR Ot 414.00 CORON ATHEROSCLER NOS TYPE VESSEL, NATIV 07/29/2018 REINA PRYOR Ot 429.9 HEART DISEASE NOS 07/29/2018 REINA PRYOR Ot 441.4 ABDOM AORTIC ANEURYSM 07/29/2018 REINA PRYOR Ot 250.00 DIAB RADHA WO COMPL, TYPE II OR UNSPEC TY 07/29/2018 REINA PRYOR Ot 401.9 HYPERTENSION NOS 07/29/2018 REINA PRYOR Ot 414.00 CORON ATHEROSCLER NOS TYPE VESSEL, NATIV 07/29/2018 REINA PRYOR Ot 429.9 HEART DISEASE NOS 07/29/2018 ANA MONTOYA MD Ot 793.89 OTH (ABN) FINDINGS ON RADIOLOGICAL EXAMI 07/29/2018 HUMPHREY JEAN MD Ot 722. 51 THORACIC DISC DEGEN 07/29/2018 HUMPHREY JEAN MD Ot 737. 30 IDIOPATHIC SCOLIOSIS 07/29/2018 ANA MONTOYA MD Ot 288.60 LEUKOCYTOSIS, UNSPECIFIED 07/29/2018 ANA MONTOYA MD Ot 793.19 OTHER NONSPECIFIC ABNORMAL FINDING OF RA[place] 07/29/2018 LEEROY WHIPPLE MD Ot 272.4 HYPERLIPIDEMIA NEC/NOS 07/29/2018 LEEROY WHIPPLE MD Ot 333.94 RESTLESS LEGS SYNDROME 07/29/2018 LEEROY WHIPPLE MD Ot 443.9 PERIPH VASCULAR DIS NOS 07/29/2018 LEEROY WHIPPLE MD Ot 721.3 LUMBOSACRAL SPONDYLOSIS 07/29/2018 LIZ HARMON MD Ot 724.0 2 SPINAL STENOSIS, LUMBAR REG, W/OUT NEURO 07/29/2018 Ot 720.2 SACR OILIITIS NEC 07/29/2018 Ot V72.84 EXA M PRE- OPERATIVE NOS 07/29/2018 Ot 250.00 FROYLAN B RADHA WO COMPL, TYPE II OR UNSPEC TY 07/29/2018 Ot 720.2 SACR OILIITIS NEC 07/29/2018 Ot V74.8 SCRE EN-BACTERIAL DIS NEC 07/29/2018 LIZ HARMON MD Ot 720.2 SACROILIITIS NEC 07/29/2018 LIZ HARMON MD Ot V72.8 4 EXAM PRE-OPERATIVE NOS 07/29/2018 KIM MCCOY AUTOMOBILE DAMAGE FIELD APPRAISER Ot 785.0 TACHYCARDIA NOS 07/29/2018 ABHINAV MTZ MD Ot 592.1 CALCULUS OF URETER 07/29/2018 ABHINAV MTZ MD Ot V72.8 4 EXAM PRE-OPERATIVE NOS 07/29/2018 ABHINAV MTZ MD Ot 592.0 CALCULUS OF KIDNEY 07/29/2018 ABHINAV MTZ MD Ot V67.0 9 SURGERY FOLLOW-UP, OTHER SURGERY 07/29/2018 MARLENE VALERA FACC, ALI FACP CCDS Ot 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 HANDLING SUPERVISOR 07/29/2018 MARLENE VALERA FACC, ALI FACP CCDS Ot 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 07/29/2018 MARLENE VALERA FACC, ALI FACP CCDS Ot N18.3 CHRONIC KIDNEY DISEASE, STAGE 3 (MODERAT 07/29/2018 MARLENE VALERA FACC, ALI FACP CCDS Ot R06.02 SHORTNESS OF BREATH 07/29/2018 MARLENE VALERA FACC, ALI FACP CCDS Ot R53.83 OTHER FATIGUE 07/29/2018 YANET VALERA, ALISA Wallace Ot L72.3 SEBACEOUS CYST 07/29/2018 ALISA HOLT MD Ot Z01.818 ENCOUNTER FOR OTHER PREPROCEDURAL EXAMIN 07/29/2018 KIM MCCOY AUTOMOBILE DAMAGE FIELD APPRAISER Ot Z12.31 ENCNTR SCREEN MAMMOGRAM FOR MALIGNANT NE 07/29/2018 ELI MENDEZ SALES ATTENDANT Ot N6 3 UNSPECIFIED LUMP IN BREAST 07/29/2018 TEJAL RINCON AUTOMOBILE DAMAGE FIELD APPRAISER Ot E78.5 HYPERLIPIDEMIA, UNSPECIFIED 07/29/2018 TEJAL RINCON AUTOMOBILE DAMAGE FIELD APPRAISER Ot I 10 ESSENTIAL (PRIMARY) HYPERTENSION 07/29/2018 TEJAL RINCON AUTOMOBILE DAMAGE FIELD APPRAISER Ot I25.10 ATHSCL HEART DISEASE OF [place] CORONARY 07/29/2018 ASHWINFLORECITA TEJAL L AUTOMOBILE DAMAGE FIELD APPRAISER Ot R07.9 CHEST PAIN, UNSPECIFIED 07/29/2018 ELI MENDEZ APRN Ot Z12.31 ENCNTR SCREEN MAMMOGRAM FOR MALIGNANT NE 07/29/2018 ELI MENDEZ SALES ATTENDANT Ot R92.1 MAMMOGRAPHIC CALCIFCN FOUND ON DIAGNOSTI 07/29/2018 KIM MCCOYP Ot M17.12 UNILATERAL PRIMARY OSTEOARTHRITIS, LEFT 07/29/2018 PHILLIP PORTILLO [employer]W LEADER-C Ot R42 DIZZINESS AND GIDDINESS 07/29/2018 MARLENE VICTORIAC, ALI FACP CCDS Ot 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 HANDLING SUPERVISOR 07/29/2018 MARLENE VALERA FACC, ALI FACP CCDS Ot E66.9 OBESITY, UNSPECIFIED 07/29/2018 MARLNEE VALERA FACC, ALI FACP CCDS Ot E78.5 HYPERLIPIDEMIA, UNSPECIFIED 07/29/2018 MARLENE VALERA FACC, ALI FACP CCDS Ot I12.9 HYPERTENSIVE CHRONIC KIDNEY DISEASE W ST 07/29/2018 MARLENE VALERA FACC, ALI FACP CCDS Ot N18.3 CHRONIC KIDNEY DISEASE, STAGE 3 (MODERAT 07/29/2018 MARLENE VALERA FACC, ALI FACP CCDS Ot R06.02 SHORTNESS OF BREATH 07/29/2018 MARLENE VALERA FACC, ALI FACP CCDS Ot R53.83 OTHER FATIGUE 09/07/2018 KIM MCCOY [employer] APPRAISER Ot R06.02 SHORTNESS OF BREATH 09/07/2018 KIM MCCOY [employer] APPRAISER Ot Z97.8 PRESENCE OF OTHER SPECIFIED DEVICES 09/20/2018 KIM MCCOY [employer] APPRAISER Ot R10.9 UNSPECIFIED ABDOMINAL PAIN 09/21/2018 KIM MCCOY [employer] DAMAGE FIELD APPRAISER Ot R10.9 UNSPECIFIED ABDOMINAL PAIN 09/28/2018 KIM MCCOY [employer] DAMAGE FIELD APPRAISER Ot R06.02 SHORTNESS OF BREATH 09/28/2018 KIM MCCOY [employer] DAMAGE FIELD APPRAISER Ot Z97.8 PRESENCE OF OTHER SPECIFIED DEVICES 10/06/2018 KIM MCCOY [employer] DAMAGE FIELD APPRAISER Ot R06.02 SHORTNESS OF BREATH 10/06/2018 KIM MCCOY [employer] DAMAGE FIELD APPRAISER Ot Z97.8 PRESENCE OF OTHER SPECIFIED DEVICES 10/07/2018 KIM MCCOY [employer] DAMAGE FIELD APPRAISER Ot R10.9 UNSPECIFIED ABDOMINAL PAIN 10/27/2018 ASHWINTEJAL BERNABE L [employer] DAMAGE FIELD APPRAISER Ot E78.5 HYPERLIPIDEMIA, UNSPECIFIED 10/27/2018 BAIFLORECITA TEJAL L [employer] DAMAGE FIELD APPRAISER Ot I 10 ESSENTIAL (PRIMARY) HYPERTENSION 10/27/2018 ASHWINFLORECITA TEJAL L [employer] DAMAGE FIELD APPRAISER Ot I25.10 ATHSCL HEART DISEASE OF [place] CORONARY 10/27/2018 MCKENZIE TEJAL L AUT[employer] DAMAGE FIELD APPRAISER Ot I77.9 DISORDER OF ARTERIES AND ARTERIOLES, UNS 10/27/2018 MCKENZIE TEJAL L [employer] DAMAGE FIELD APPRAISER Ot R00.2 PALPITATIONS 10/27/2018 ASHWINFLORECITA TEJAL L [employer] DAMAGE FIELD APPRAISER Ot R06.02 SHORTNESS OF BREATH 12/03/2018 MARLENE VALERA FACC, ALI FACP CCDS Ot I25.10 ATHSCL HEART DISEASE OF [place] CORONARY 12/10/2018 MARLENE VALERA FACC, TONIE FACP CCDS Ot E11.9 TYPE 2 DIABETES MELLITUS WITHOUT COMPLIC 12/10/2018 MARLENE VALERA FACC, TONIE FACP CCDS Ot I10 ESSENTIAL (PRIMARY) HYPERTENSION 12/10/2018 MARLENE VALERA FACC, ALI FACP CCDS Ot I25.10 ATHSCL HEART DISEASE OF [place] CORONARY 12/10/2018 MARLENE VALERA FACC, ALI FACP CCDS Ot I65.29 OCCLUSION AND STENOSIS OF UNSPECIFIED CA 12/10/2018 MARLENE VALERA FACC, ALI FACP CCDS Ot I73.9 PERIPHERAL VASCULAR DISEASE, UNSPECIFIED 12/28/2018 MARLENE VALERA FACC, ALI FACP CCDS Ot E11.9 TYPE 2 DIABETES MELLITUS WITHOUT COMPLIC 12/28/2018 MARLENE VALERA FACC, TONIE FACP CCDS Ot I10 ESSENTIAL (PRIMARY) HYPERTENSION 12/28/2018 MARLENE VALERA FACC, ALI FACP CCDS Ot I25.10 ATHSCL HEART DISEASE OF [place] CORONARY 12/28/2018 MARLENE VALERA [facility], [facility] CCDS Ot I65.29 OCCLUSION AND STENOSIS OF UNSPECIFIED CA 12/28/2018 MARLENE VALERA [facility], ALI JULIENP CCDS Ot I73.9 PERIPHERAL VASCULAR DISEASE, UNSPECIFIED 02/24/2019 KIM MCCOY [employer] APPRAISER Ot M54.42 LUMBAGO WITH SCIATICA, LEFT SIDE 02/28/2019 IKM MCCOY [employer] APPRAISER Ot M54.42 LUMBAGO WITH SCIATICA, LEFT SIDE 03/06/2019 AMINATA BEACH MD Ot E11. 9 TYPE 2 DIABETES MELLITUS WITHOUT COMPLIC 03/06/2019 AMINATA BEACH MD Ot F32. 9 MAJOR DEPRESSIVE DISORDER, SINGLE EPISOD 03/06/2019 AMINATA BEACH MD Ot F41. 9 ANXIETY DISORDER, UNSPECIFIED 03/06/2019 AMINATA BEACH MD Ot K21. 9 GASTRO-ESOPHAGEAL REFLUX DISEASE WITHOUT 03/06/2019 AMINATA BEACH MD Ot M79.672 PAIN IN LEFT FOOT 03/06/2019 AMINATA BEACH MD Ot S92.352A DISP FX OF FIFTH METATARSAL BONE, LEFT F 03/06/2019 AMINATA BEACH MD Ot X58.XXXA EXPOSURE TO OTHER SPECIFIED FACTORS, INI 03/06/2019 AMINATA BEACH MD Ot Z79. 82 MUTUEL TELLER (CURRENT) USE OF ASPIRIN 03/06/2019 AMINATA BEACH MD Ot Z79. 84 CORRECTION (CURRENT) USE OF ORAL HYPOGLYC 03/06/2019 AMINATA BEACH MD Ot Z87.442 PERSONAL HISTORY OF URINARY CALCULI 03/06/2019 AMINATA BEACH MD Ot Z87. 81 PERSONAL HISTORY OF (HEALED) TRAUMATIC F 03/06/2019 AMINATA BEACH MD Ot Z87.891 PERSONAL HISTORY OF NICOTINE DEPENDENCE 03/06/2019 AMINATA BEACH MD Ot Z88. 1 ALLERGY STATUS TO OTHER ANTIBIOTIC AGENT 03/06/2019 AMINATA BEACH MD Ot Z88. 8 ALLERGY STATUS TO OTH DRUG/MEDS/BIOL SUB 03/06/2019 AMINATA BEACH MD Ot Z90.710 ACQUIRED ABSENCE OF BOTH CERVIX AND UTER 03/10/2019 AMINATA BEACH MD Ot E11. 9 TYPE 2 DIABETES MELLITUS WITHOUT COMPLIC 03/10/2019 AMINATA BEACH MD, Ot F32. 9 MAJOR DEPRESSIVE DISORDER, SINGLE EPISOD 03/10/2019 AMINATA BEACH MD, Ot F41. 9 ANXIETY DISORDER, UNSPECIFIED 03/10/2019 AMINATA BEACH MD Ot K21. 9 GASTRO-ESOPHAGEAL REFLUX DISEASE WITHOUT 03/10/2019 AMINATA BEACH MD Ot M79.672 PAIN IN LEFT FOOT 03/10/2019 AMINATA BEACH MD Ot S92.352A DISP FX OF FIFTH METATARSAL BONE, LEFT F 03/10/2019 AMINATA BEACH MD Ot X58.XXXA EXPOSURE TO OTHER SPECIFIED FACTORS, INI 03/10/2019 AMINATA BEACH MD, Ot Z79. 82 CORRECTION (CURRENT) USE OF ASPIRIN 03/10/2019 AMINATA BEACH MD Ot Z79. 84 CORRECTION (CURRENT) USE OF ORAL HYPOGLYC 03/10/2019 AMINATA BEACH MD, Ot Z87.442 PERSONAL HISTORY OF URINARY CALCULI 03/10/2019 AMINATA BEACH MD, Ot Z87. 81 PERSONAL HISTORY OF (HEALED) TRAUMATIC F 03/10/2019 AMINATA BEACH MD, Ot Z87.891 PERSONAL HISTORY OF NICOTINE DEPENDENCE 03/10/2019 AMINATA BEACH MD, Ot Z88. 1 ALLERGY STATUS TO OTHER ANTIBIOTIC AGENT 03/10/2019 AMINATA BEACH MD, Ot Z88. 8 ALLERGY STATUS TO OTH DRUG/MEDS/BIOL SUB 03/10/2019 AMINATA BEACH MD Ot Z90.710 ACQUIRED ABSENCE OF BOTH CERVIX AND UTER 03/11/2019 MARLENE VALERA FACC, ALI FACP CCDS Ot E11.9 TYPE 2 DIABETES MELLITUS WITHOUT COMPLIC 03/11/2019 MARLENE VALREA FACC, ALI FACP CCDS Ot I10 ESSENTIAL (PRIMARY) HYPERTENSION 03/11/2019 MARLENE VALERA FACC, ALI FACP CCDS Ot I25.10 ATHSCL HEART DISEASE OF [place] CORONARY 03/11/2019 MARLENE VALERA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 HUMPHREY JEAN MD [facility] RAD THORALGIA [id number] 08/22/2013 13:32:00 14:25:00 DIS Outpatient HUMPHREY JEAN MD [facility] CARD LUMBAGO [id number] 06/17/2013 10:30:00 11:07:00 DIS Outpatient HUMPHREY JEAN MD [facility] CARD LUMBAR SPONDYLOSIS [id number] 05/17/2013 11:15:00 014 13:46:00 DIS Outpatient ANA MONTOYA MD [facility] REHAB LOW BACK PAIN [id number] 04/04/2013 09:47:00 23:59:59 CLS Outpatient KIM MCCOY [facility] RAD LOW BACK PAIN [id number] 03/14/2013 08:00:00 23:59:59 CLS Outpatient AAN MONTOYA MD [facility] RAD ABNORMAL MAMMO 6 MONTH FOLLOWUP [id number] 10/03/2012 11:25:00 23:59:59 CLS Outpatient [id number] 12/21/2019 10:15:00 P EN Preadmit LYNNE ANNE, LATONIA Beyer [facility] RAD BACK PAIN [id number] 12/22/2014 16:30:00 Document Registration [id number] 07/31/2014 11:00:00 Document Registration [id number] 07/25/2014 05:46:00 Document Registration [id number] 09/08/2012 13:40:00 Document Registration [id number] 08/24/2012 09:47:00 Document Registration [id number] 06/25/2012 13:56:00 06/25/2012 23:59: 59 CLS Outpatient [id number] 05/14/2012 14:52:00 05/14/2012 23:59: 59 CLS Outpatient [id number] 05/14/2012 15:04:47 RECURRING
[2019-12-21] MEDS ORDERED: IOHEXOL 240 MGI/ML 50 ML (OMNIPAQUE) VIAL IV ONE (10:30)
[2019-12-21] MEDS ORDERED: GADOBUTROL 7.5 MMOL/7.5 ML (GADAVIST) VIAL IV ONE (10:30)
[2019-12-21] MEDS ORDERED: LIDOCAINE 1% INJ 20 ML 20 ML VIAL INJ ONE (10:41)
[2019-12-21] MEDS ORDERED: ACETAMINOPHEN 500 MG TAB (TYLENOL) PO PRN (11:15)
--- NOTE | 2019-12-21 11:45 | Diagnostic Imaging Report ---
PROCEDURE: CT lumbar spine with contrast. TECHNIQUE: Multiple contiguous axial images were obtained through the lumbar spine after the intrathecal administration of contrast. Sagittal and coronal reformations were then performed. Auto Exposure Controls were utilized during the CT exam to meet ALARA standards for radiation dose reduction. INDICATION: Low back pain and lower extremity radiculopathy. The study is performed post myelography. Curvature and alignment of the lumbar spine is normal apart from very slight retrolisthesis of L2 on L3. There is degenerative disc disease at L2-L3 with disc space narrowing, marginal osteophyte formation and vacuum disc phenomena. No acute bony abnormality is identified. There are hypertrophic facet degenerative changes in lower lumbar spine. T12-L1: Central canal and neural foramina appear widely patent. L1-L2: Central canal and neural foramina appear widely patent. L2-L3: Broad-based disc/osteophyte complex flattens the ventral thecal sac and central canal remains widely patent. There is narrowing of the lateral recesses bilaterally. Very mild bilateral neural foraminal narrowing is present as well. L3-L4: Central canal is patent. Neural foramina appear patent. L4-L5: Broad-based disc/osteophyte complex flattens the ventral thecal sac and central canal remains patent. No neural foraminal narrowing is seen. L5-S1: Central canal is patent. Neural foramina are patent. There are marked facet changes noted. Paraspinous tissues demonstrate aneurysmal dilatation of the infrarenal abdominal aorta, measuring 3.2 cm AP x 3.4 cm transverse. Length of the aneurysm is approximate 7 cm. No retroperitoneal hemorrhage or evidence of leakage is seen. IMPRESSION: 1. Lumbar spondylosis, greatest at L2-S3 level where there is lateral recess and neural foraminal narrowing, as described. No central canal stenosis is identified. No acute compression fracture is detected. 2. Infrarenal abdominal aortic aneurysm. Dictated by: Dictated on workstation # [id number]
--- NOTE | 2019-12-21 11:47 | Diagnostic Imaging Report ---
INDICATION: Low back pain and lower extremity radiculopathy. TECHNIQUE: The patient was brought to the procedure room and placed on the table in the prone position. The skin of the low back was prepped and draped in the usual sterile fashion. A small amount of 1% lidocaine was utilized for local anesthesia. A 22-gauge spinal needle was advanced into the lumbar thecal sac at the L3 level. 12 cc of Omnipaque 240 contrast was injected under fluoroscopic observation. The needle was withdrawn and hemostasis was obtained. Multiple spot films were obtained of the lumbar spine in multiple obliquities. The patient tolerated the procedure well and was sent to CT for post-myelography CT. FLUOROSCOPY TIME: 61 seconds of fluoroscopic time was utilized. FINDINGS: Contrast is seen throughout the lumbar thecal sac. No extradural defects are seen. There appears to be filling of the nerve root sleeves. Further evaluation will be performed with post myelography CT. IMPRESSION: Lumbar myelogram, as described. Further evaluation will be performed with post myelography CT. Dictated by: Dictated on workstation # [id number]
== END 2019-12-21 14:15 | disposition home or self-care (01) ==
LOC: RAD 08:56 → SDC 11:01 → RAD 14:15
PROVIDERS: ATTEND Physician Assistant
DX: M47.26 Other spondylosis with radiculopathy, lumbar region (principal); I71.4 Abdominal aortic aneurysm, without rupture; F41.9 Anxiety disorder, unspecified; F32.9 Major depressive disorder, single episode, unspecified; E11.9 Type 2 diabetes mellitus without complications; I10 Essential (primary) hypertension; E78.00 Pure hypercholesterolemia, unspecified; K21.9 Gastro-esophageal reflux disease without esophagitis; Z87.891 Personal history of nicotine dependence; Z96.82 Presence of neurostimulator; Z79.84 Long term (current) use of oral hypoglycemic drugs
CPT/HCPCS: 36415; 62284; 72132; 72265; 77002; 85027; 85610; 85730

== ENCOUNTER 2020-04-12 09:50 | Inpatient (IN) | payer MEDICARE ==
[~2020-04-12] VITALS: Ht 170.2 cm; Wt 92.3 kg
[2020-04-12 09:50] VITALS: BP 126/61
[~2020-04-12 09:50] MED LIST changes: +ALPRAZolam 0.25 MG (XANAX) TAB PO PRN; +CALCIUM CARBONATE 500 MG (TUMS) TAB.CHEW PO PRN; +DOCUSATE SODIUM 100 MG (COLACE) CAP PO PRN; +DOCUSATE SODIUM 100 MG (COLACE) CAP PO SCH; +FLEET ENEMA ADULT 1 EA BTL PR PRN; +LOPERAMIDE 2 MG (IMODIUM) TABLET PO PRN; +MELATONIN 3 MG TABLET PO PRN; +ONDANSETRON 4 MG (ZOFRAN) ORAL DISSOLVE TAB PO PRN; +diphenhydrAMINE 25 MG TAB (BENADRYL) PO PRN; +guaiFENesin/CODEINE (ROBITUSSIN AC) 10ML UDC PO PRN
--- NOTE | 2020-04-12 09:50 | NUR ---
JOESPH CHRISTIANSEN admitted to room 225-1, with an admitting diagnosis of LUMBAR RADICULOPATHY, on 04/12/20 from [facility] via [facility], accompanied by DAUGHTER.JOESPH CHRISTIANSEN introduced to surroundings, call light, bed controls, phone, TV, temperature control, lights, meal times, smoking policy, visitor policy, side rail policy, bathrooms and showers. Patient Rights given to patient in the handbook.JOESPH CHRISTIANSEN verbalizes understanding that [facility] is not responsible for the loss or damage to any personal effects or valuables that are kept in the patients posession during their hospitalization. The following Patient Care Plans were discussed with the PT: Discharge Planning, FALLS AND IMPAIRED MOBILITY. JOESPH CHRISTIANSEN verbalizes understanding of Interdisciplinary Patient Education. Patient received Patient Rights Booklet, which includes Privacy Act Statement and Data Collection Information Summary.
[2020-04-12] MEDS ORDERED: GLIP5TAB13 PO (10:09)
[2020-04-12] MEDS ORDERED: BUDE10.2 IH (10:09)
[2020-04-12] MEDS ORDERED: PREG75CA PO (10:09)
[2020-04-12] MEDS ORDERED: AMLO-251 PO (10:09)
[2020-04-12] MEDS ORDERED: METO100T12 PO (10:09)
[2020-04-12] MEDS ORDERED: RT-ALBUINH INH (10:09)
[2020-04-12] MEDS ORDERED: DOCU250C11 PO (10:09)
[2020-04-12] MEDS ORDERED: NF-SOLIF5T PO (10:09)
[2020-04-12] MEDS ORDERED: TRAZ-227 PO (10:09)
[2020-04-12] MEDS ORDERED: MULT1TAB65 PO (10:09)
[2020-04-12] MEDS ORDERED: ASPI-1238 PO (10:09)
[2020-04-12] MEDS ORDERED: UBID1CAP59 PO (10:09)
[2020-04-12] MEDS ORDERED: HYDR-4227 PO (10:09)
[2020-04-12] MEDS ORDERED: BUPR-42 PO (10:09)
[2020-04-12] MEDS ORDERED: CHOL20003 PO (10:09)
--- NOTE | 2020-04-12 10:23 | PM&R Post Admission Assessment ---
PM&R HP Date of Visit: Apr 12, 2020 Time of Visit: 10:30 History of Present Illness CC: lumbar stensosis with neurogenic claudication, s/p fusion L2-3 POD # [address] Hassan HPI: This is a 70yoWF clinic patient of Dr Hayes who presents following an uncomplicated lumbar spine surgery by Dr Hassan at [facility]. I followed her there as a Hospitalist desktop support consultant capacity and she had no decompensation since surgery. BM not since prior to OR. Patient having numbness and decreased strength of her legs and is a fall risk. She lives at home alone but her son checks on her and her daughter is an RN. PLOF was independent of all ADL's. Assessment per JAMES JACKMAN MED STUDENT, MSIII Patient is a pleasant 70 year old white female who was admitted today from [place] after recent surgery to correct lumbar stenosis with neurogenic claudication. She reports improvement in her back pain since the surgery, but has numbness in the right inner thigh and weakness in the left leg. 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 She notes bending forward to use the sewing machine, so mechanics of this will need to be looked into as this is an activity that the patient enjoys. Per patient, she is able to sort out and organize her medications. She lives alone, is . Her family has been helping her with errands due to the COVID-19 pandemic. Her children have also come to help clean around the house and yard since previous pain limited her ability to do so. She seems a flat affect today, though becomes slightly more animated when talking about her sewing projects. She was able to maintain the course of the conversation without any tangents. Goals of therapy are for ambulation without the use of the walker and improved performance on ADLs. She would like to be able to do more housework than she could prior to surgery. Continue to monitor weakness in the left leg and numbness in right inner thigh to ensure this is not worsening. Past Yagdzcw-Drfhxn-Fmtlvk Hx Past Med/Social Hx: Reviewed Nursing Past Med/Soc Hx, Reviewed and Corrections made Patient Social History Marrital Status: Employed/Student: retired Alcohol Use: Denies Use Smoking Status: Former Smoker Former Smoker, Quit: Sep 27, 2001 2nd Hand Smoke Exposure: No Recent Hopitalizations: Yes Immunizations Up To Date Date of Pneumonia Vaccine: Dec 24, 2014 Past Medical History Surgeries: Bladder Surgery, Orthopedic Respiratory: COPD, Sleep Apnea Currently Using CPAP: Yes Currently Using BIPAP: No Cardiac: High Cholesterol, Hypertension Neurological: Neuropathy Reproductive: No Sexually Transmitted Disease: No HIV/AIDS: No Female Reproductive Disorders: Denies Genitourinary: Kidney Stones OAB Gastrointestinal: Gastroesophageal Reflux, Chronic Constipation, Irritable Bowel Musculoskeletal: Chronic Back Pain RLS Endocrine: Diabetes, Non-Insulin dep Loss of Vision: Bilateral Hearing Impairment: Denies Psychosocial: Anxiety, Depression History of Blood Disorders: No Adverse Reaction to Blood Salazar: No PM&R Allergy/Meds/Data Review Allergies Coded Allergies: phenazopyridine (Verified Allergy, Unknown, 09/10/15) levofloxacin (Verified Adverse Reaction, Mild, N/V, 07/27/15) Home Medications Scheduled Amlodipine Besylate (Amlodipine Besylate), 5 MG PO DAILY, (Reported) Aspirin (Aspirin EC), 81 MG PO DAILY, (Reported) Budesonide/Formoterol Fumarate (Symbicort 160-4.5 Mcg Inhaler), 2 PUFF IH BID, (Reported) Bupropion HCl (Wellbutrin Xl), 150 MG PO DAILY, (Reported) Cholecalciferol (Vitamin D3) (Vitamin D3), 50 MCG PO DAILY, (Reported) Docusate Sodium (Docusate Sodium), 250 MG PO BID, (Reported) Glipizide (Glipizide), 2.5 MG PO BID WITH MEALS, (Reported) Losartan Potassium (Losartan Potassium), 50 MG PO BID, (Reported) Metoprolol Tartrate (Metoprolol Tartrate), 100 MG PO BID, (Reported) Multivitamin (Daily Aj), 1 EACH PO DAILY, (Reported) Pramipexole Di-HCl (Mirapex), 0.5 MG PO BID, (Reported) Pregabalin (Lyrica), 75 MG PO Q12H, (Reported) Solifenacin Succinate (Vesicare), 5 MG PO DAILY, (Reported) Trazodone HCl (Trazodone HCl), 100 MG PO HS, (Reported) Ubidecarenone/Vit E/Vit E Mix (Co-Enzyme Q10 100 mg Softgel), 1 EACH PO DAILY, (Reported) Scheduled PRN Albuterol Sulfate (Ventolin Hfa), 2 PUFF INH Q6H PRN for SHORTNESS OF BREATH, (Reported) Hydrocodone/Acetaminophen ([place] 7.5-325 Tablet), 1 TAB PO Q4H PRN for PAIN- MODERATE (5-7), (Reported) Discontinued Medications Alprazolam (Alprazolam), 0.25 MG PO PRN, (Reported) Discontinued Reason: No Longer Taking Amlodipine Besylate (Amlodipine Besylate), 5 MG PO DAILY, (Reported) Discontinued Reason: Duplicate Order Bupropion HCl (Wellbutrin Sr), 150 MG PO BID, (Reported) Discontinued Reason: Duplicate Order Calcium Carbonate/Vitamin D3 (Calcium 600 + D Caplet), 1 EACH PO DAILY, (Reported) Discontinued Reason: No Longer Taking Cholecalciferol (Vitamin D3), 5,000 UNIT PO DAILY, (Reported) Discontinued Reason: Prescription changed Cyclobenzaprine HCl (Cyclobenzaprine HCl), 10 MG PO PRN PRN for MUSCLE SPASMS, (Reported) Discontinued Reason: No Longer Taking Famotidine (Acid Apartment Manager (FAMOTIDINE)), 20 MG PO DAILY, (Reported) Discontinued Reason: No Longer Taking Fenofibrate,Micronized (Fenofibrate 134 Mg), 134 MG PO DAILY, (Reported) Discontinued Reason: No Longer Taking Fish Oil/Dha/Epa (Fish Oil 1,200 mg Fish Oil), 2 EACH PO DAILY, (Reported) Discontinued Reason: No Longer Taking Hydrocodone Bit/Acetaminophen (Lortab 5 Mg Tablet), 1 EACH PO Q4-6HR PRN for PAIN-MODERATE Discontinued Reason: Duplicate Order Metformin Hcl (Metformin 500 Mg), 250 MG PO DAILY, (Reported) Discontinued Reason: No Longer Taking Multivitamins (Multiple Vitamin), 1 TAB PO DAILY, (Reported) Discontinued Reason: Prescription changed Naproxen (Naproxen), 500 MG PO BID PRN for PAIN, (Reported) Discontinued Reason: No Longer Taking Oxybutynin Chloride (Oxybutynin Chloride ER), 10 MG PO DAILY, (Reported) Discontinued Reason: No Longer Taking Tramadol HCl (Tramadol HCl), 50 MG PO Q12H PRN for PAIN Discontinued Reason: No Longer Taking Current Medications Current Medications Reviewed Review of Systems Constitutional: see HPI, dizziness, malaise, weakness EENTM: no symptoms reported Respiratory: no symptoms reported Cardiovascular: no symptoms reported Gastrointestinal: constipation Genitourinary: no symptoms reported Musculoskeletal: no symptoms reported Skin: no symptoms reported Psychiatric/Neurological: Anxiety All Other Systems Reviewed Negative Unless Noted: Yes Physical Exam Physical Exam Vital Signs Capillary Refill : Height, Weight, BMI Height: 5'7.00" Weight: 183lbs. 0.0oz. 83.053848dx; 32.00 BMI Method: General Appearance: No Apparent Distress, WD/WN, Chronically ill, Obese Eyes: Bilateral Eye Normal Inspection, Bilateral Eye PERRL HEENT: PERRL/EOMI, Normal ENT Inspection, Pharynx Normal Neck: Full Range of Motion, Normal Inspection, Non Tender, Supple, Carotid Bruit Respiratory: Chest Non Tender, Lungs Clear, Normal Breath Sounds, No Accessory Muscle Use, No Respiratory Distress Cardiovascular: Regular Rate, Rhythm, No Edema, No Gallop, No JVD, No Murmur, Normal Peripheral Pulses Gastrointestinal: Normal Bowel Sounds, No Organomegaly, No Pulsatile Mass, Non Tender, Soft Back: Normal Inspection, No CVA Tenderness, Decreased Range of Motion, Muscle Spasm, Vertebral Tenderness Extremity: Normal Capillary Refill, Normal Inspection, Normal Range of Motion, Non Tender, No Calf Tenderness, No Pedal Edema Neurologic/Psychiatric: Alert, Oriented x3, No Motor/Sensory Deficits, Normal Mood/Affect, technical project manager II-XII Norm as Tested, Motor Weakness (generalized lower extremities but right leg 3/5 left leg 4/5) Skin: Normal Color, Warm/Dry Lymphatic: No Adenopathy PM&R Medical Assessment & Plan REHAB/MEDICAL ASSESSMENT AND PLAN: REHAB IMPAIRMENT GROUP: Lumbar radiculopathy ETIOLOGIC DIAGNOSIS: Lumbar radiculopathy The comorbidities that impact the patients function and/or functional outcome by: lives alone, generalized weakness, fall risk REHAB PLAN: The patient is being admitted to our comprehensive inpatient rehabilitation facility and can tolerate the intensity of service consisting of at least: 180 minutes of therapy a day, 5 out of 7 days a week Rehab treatment will consist of: PT OT will focus on regaining ADL's and ambulatory skills along with energy conservation skills in order to return home to live independently The patient/family has a good understanding of our discharge process and will benefit from an interdisciplinary inpatient rehabilitation program. The patient has potential to make improvement and is in need of at least two of the following multidisciplinary therapies including but not limited to physical, occupational, speech, and prosthetics and orthotics. Additionally the patient will need services from respiratory, nutritional services, wound care, psychology, etc. (Customize this to each patient). Given the patients complex condition and risk of further medical complications, rehabilitation services cannot be safely or effectively provided at a lower level of care such as a detention facility. BARRIERS TO DISCHARGE: Lives alone ESTIMATED LOS: 6 days DISPOSITION: Home RELEVANT CHANGES SINCE PREADMISSION SCREENING: I have compared the patients medical and functional status at the time of the preadmission screening and there are: no changes PROGNOSIS: Good REHABILITATION GOALS: 1. PT OT will focus on regaining ADL's and ambulatory skills along with energy conservation skills in order to return home to live independently All the above goals were reviewed with the patient and he/she is in agreement. By signing this document, I acknowledge that I have personally performed a full physical examination on this patient within 24 hours of admission to this inpatient rehabilitation facility and have determined the patient to be able to tolerate the above course of treatment at an intensive level for a reasonable period of time. I will be completing a detailed individualized Plan of Care for this patient by day #4 of the patients stay based upon the Preadmission Screen, the Post-Admission Evaluation, and the therapy evaluations. Admission Dx/Comorbidities: (1) Lumbar radiculopathy ICD Codes: M54.16 - Radiculopathy, lumbar region (2) Diabetes ICD Codes: E11.9 - Type 2 diabetes mellitus without complications (3) Essential (primary) hypertension ICD Codes: I10 - Essential (primary) hypertension (4) Pure hypercholesterolemia, unspecified ICD Codes: E78.00 - Pure hypercholesterolemia, unspecified (5) ZOHREH on CPAP ICD Codes: G47.33 - Obstructive sleep apnea (adult) (pediatric); Z99.89 - Dependence on other enabling machines and devices (6) Nocturnal hypoxia ICD Codes: G47.34 - Idiopathic sleep related nonobstructive alveolar hypoventilation (7) Obesity ICD Codes: E66.9 - Obesity, unspecified (8) Overactive bladder ICD Codes: N32.81 - Overactive bladder Assessment/Plan Assessment and Plan Assess & Plan/Chief Complaint Assessment: Lumbar radiculopathy s/p surgery POD # 2 ZOHREH on CPAP with 3L/min O2 bleeding into machine Obesity DM HTN DM HLP OAB RLS Anxiety Plan: Monitor pain IRF protocol Accuchecks Home meds KAYLEEN BURCIAGA DO Apr 12, 2020 10:23
--- NOTE | 2020-04-12 10:23 | NUR ---
THE MED REC WAS ENTERED USING THE DISCHARGE ORDERS FROM [facility]. AFTER THE MEDICATIONS ARE CONTINUED I WILL SPEAK WITH THE PT AND MAKE ANY CHANGES TO THE MED REC/NOTES IF NEEDED Addendum: 04/16/20 at 1533 by YANE STALEY [facility] I SPOKE WITH THE PT, WENT THRU THE EXT MED HISTORY AND CALLED [facility] TO COMPLETE THE MED REC MEDICATIONS THAT WERE REMOVED DUE TO PT NOT TAKING PRIOR TO [facility]: ASPIRIN 81MG HYDROCODONE/APAP 7.5/325MG MEDICATIONS THAT HAVE BEEN ADDED: TYLENOL PRN PT SAYS SHE IS TAKING VESICARE AT HOME HOWEVER THE LAST TIME IT WAS FILLED WAS 07-01-2019 #90/90DS- I DID DOCUMENT THE PAST DUE FILL ON THE MED REC PT IS TAKING LYRICA 75MG THAT SHE GETS FROM THE MANAGER [employer]
[2020-04-12] MEDS ORDERED: RT-ALBUTEROL SULF 2.5 MG/3 ML PRE-MIX VIAL INH PRN (10:30)
[2020-04-12 10:50] VITALS: BP 126/61
[2020-04-12] MEDS ORDERED: ACETAMINOPHEN 325 MG TABLET PO PRN (11:00)
[2020-04-12] MEDS ORDERED: oxyCODONE/APAP 5/325MG (PERCOCET 5) TABLET PO PRN (11:00)
--- NOTE | 2020-04-12 12:00 | Occupational Therapy Eval ---
OT Evaluation-General/PLF Medical Diagnosis Admission Date Apr 12, 2020 at 09:50 Medical Diagnosis: lumbar stensosis with neurogenic claudication, s/p fusion L2-3 Onset Date: Apr 10, 2020 Therapy Diagnosis Therapy Diagnosis: weakness, decreased ADL status Height/Weight Height (Feet): 5 Height (Inches): 7.00 Weight (Pounds): 183 Weight (Ounces): 0.0 Precautions Precautions/Isolations: Fall Prevention, Standard Precautions Comments back precautions (no bending/lifting/twisting), back brace when up Referral Physician: Giovani Referral Reason: Evaluation/Treatment Medical History Pertinent Medical History: COPD, DM, HTN Additional Medical History anxiety/depression, asthma, HLD, ZOHREH, bladder suspension, cataract removal, hysterectomy, rotator cuff repair, spinal cord stimulator (2017), Current History Progressively worsening low back pain and bilateral leg pain Social History Home: Single Level Current Living Status: Alone Entry Into Home: Stairs Without Railing Steps Into Home: 2 ADL-Prior Level of Function SCALE: Activities may be completed with or without assistive devices. 9-Slleskrtyj-pnvmtdn completes the activity by him/herself with no assistance from a helper. 5-Set-up or Clean-up Assistance-helper sets up or cleans up; patient completes activity. [place] assists only prior to or following the activity. 4-Supervision or Touching Assistance-helper provides verbal cues and/or touching/steadying and/or contact guard assistance as patient completes activity. Assistance may be provided throughout the activity or intermittently. 3-Partial/Moderate Assistance-helper does LESS THAN HALF the effort. [place] lifts, holds or supports trunk or limbs, but provides less than half the effort. 2-Substantial/Maximal Assistance-helper does MORE THAN HALF the effort. [place] lifts or holds trunk or limbs and provides more than half the effort. 1-Hplzomsvj-righwy does ALL the effort. Patient does none of the effort to complete the activity. Or, the assistance of 2 or more helpers is required for the patient to complete the activity. If activity was not attempted, code reason: 7-Patient Refused. 9-Not Applicable-not attempted and the patient did not perform the activity before the current illness, exacerbation or injury. 10-Not Attempted due to Environmental Limitations-(lack of equipment, weather restraints, etc.). 88-Not Attempted due to Medical Conditions or Safety Concerns. ADL PLOF Comments Pt indicates independent with all ADLS and functional mobility using no AD/AE. Self Care: Independent Functional Cognition: Independent DME/Equipment: Bath Chair (built in), Shower Drive Self: Yes OT Current Status Subjective Pt agreeable to OT evaluation and tx. Pt does not verbalize pain rating during tx. Mental Status/Objective Patient Orientation: Person, Place, Time, Situation Attachments: Other-See Comments (back brace) Current Glasses/Contacts: Yes Hearing Aids: No Dentures/Partials: Yes Hand Dominance: Right Upper Extremity ROM WFL, BUE shoulder flexion to approx 160 degrees Upper Extremity Coordination WFL Upper Extremity Sensation WFL Upper Extremity Strength grossly 4-/5 MMT ADL-Treatment Eating (QC): 6 (Per pt report, she is able to use utensils, cut food, open containers and bring food to mouth) Oral Hygiene (QC): 4 (SBA standing at sink) Shower/Bathe Self (QC): 3 (Assist to wash BLE lower legs/feet.) Upper Body Dressing (QC): 3 (Pt donned bra, shirt and back brace. Min A with clasp of bra, and min A with back brace.) Lower Body Dressing (QC): 3 (Pt donned/doffed underwear and pants. Pt able to doff independently, required assistance with threading RLE into pants/underwear. SBA in stand for pant hike.) On/Off Footwear (QC): 3 (Mod A, pt able to doff shoes, required assistance donning BLE gripper socks.) Toileting Hygiene (QC): 4 (Pt able to perform hygiene and clothing management, SBA.) Other Treatments [id number] OT evaluation. OT educated pt on purpose and benefit of OT, she verbalized understanding. Pt provided information about PLOF and home set up, and participated in UE screen. [id number] OT/PT cotreat. OT/PT cotreat due to skill of 2 clinicians required which a rehab rn could not perform in order to coordinate UE/LEs with task, to increase pt's strength and functional endurance, and to complete higher level balance activities. OT focused on ADLs, cues for sequencing and safety, and UE placement while PT focused on LE placement, gross overall movements, dynamic standing balance and higher level balance activities. Pt completed functional transfer in/out of car simulation and functional mobility across uneven surface, and up/down 1 step. Pt used FWW to stand at sink to brush teeth, SBA with task. Pt then transferred onto ME with SBA to complete dressing and shower. OT covered dressing prior to shower and it remained dry post shower. Pt able to stand to wash buttocks/periarea, and able to wash all parts except lower legs/feet. Pt required assistance with bra clasp, then pt able to don supervisor pullet farm shirt, and back brace. Pt required min A with back brace. Pt donned pants, requiring assistance threading RLE into pants/underwear. Pt able to don footwear using figure 4, crossing 1 foot over the other knee. Pt took a seated rest break at recliner, then ambulated to gym with SBA. In order to increase dynamic standing balance, pt completed UE reaching activity in stand. OT focused on UEs, while PT assisted with balance. Pt able to hit balloon back and forth with OT, reaching in all planes, BUEs. Pt also completed standing balance with eyes closed, and on uneven surface. Pt returned to room using FWW transferring to recliner. OT cued pt with transfers to use UEs to push up from surface she is transferring from, and to reach back for surface prior to sitting. [id number] OT tx: OT assisted pt with positioning to comfort, pt able to doff brace with SBA. OT provided pt with water cup, and educated pt on using call light, instructing pt not to get up on her own. Pt verbalizes understanding. Post OT tx, pt seated in recliner, call light in reach and all needs met. Education OT Patient Education: Correct positioning, Energy conservation, Exercise program, Instructions don/doff splint/brace, Modified ADL techniques, Progress toward Goal/Update tx plan, Purpose of tx/functional activities, Rehab process, Safety issues, Transfer techniques Teaching Recipient: Patient Teaching Methods: Discussion Response to Teaching: Verbalize Understanding OT Usp Goals Territory Manager Goals Time Frame: Apr 27, 2020 Eating (QC): 6 Oral Hygiene (QC): 6 Toileting Hygiene (QC): 6 Shower/Bathe Self (QC): 6 Upper Body Dressing (QC): 6 Lower Body Dressing (QC): 6 On/Off Footwear (QC): 6 Additional Goals: 1-Demonstrate ADL Tasks, 2-Verbalize Understanding, 3-Improve Strength/[place] 1=Demonstrate adherence to instructed precautions during ADL tasks. 2=Patient will verbalize/demonstrate understanding of assistive devices/modifications for ADL. 3=Patient will improve strength/tolerance for activity to enable patient to pe rform ADL's. OT Education/Plan Problem List/Assessment Assessment: Decreased Activ Tolerance, Decreased UE Strength, Impaired Funct Balance, Impaired I ADL's, Impaired Self-Care Skills Discharge Recommendations Plan/Recommendations: Continue POC Treatment Plan/Plan of Care Patient would benefit from OT for education, treatment and training to promote independence in ADL's, mobility, safety and/or upper extremity function for ADL's. Plan of Care: ADL Retraining, Functional Mobility, Group Exercise/Act as Ind, UE Funct Exercise/Act Treatment Duration: Apr 27, 2020 Frequency: At least 5 of 7 days/Wk (IRF) Estimated Hrs Per Day: 1.5 hours per day Agreement: Yes Rehab Potential: Good Time/GCodes Start Time: 10:15 Stop Time: 11:45 Total Time Billed (hr/min): 90 Billed Treatment Time 1094-3017 OT eval (10'), [id number] OT/PT cotreat (75'), 6859-1453 OT tx (5') 1, EVM (10'), FA 3 (45'), ADL 2 (35') ADDY RAZA OT Apr 12, 2020 12:00
--- NOTE | 2020-04-12 12:02 | Physical Therapy Evaluation ---
PT Evaluation-General Medical Diagnosis Admission Date Apr 12, 2020 at 09:50 Medical Diagnosis: Lumbar Stenosis Onset Date: Apr 10, 2020 Therapy Diagnosis Therapy Diagnosis: Impaired mobility Height/Weight Height (Feet): 5 Height (Inches): 7.00 Weight (Pounds): 183 Weight (Ounces): 0.0 Precautions Precautions/Isolations: Fall Prevention, Standard Precautions Weight Bear Status Right Lower Extremity: Right Full Weight Bearing Left Lower Extremity: Left Full Weight Bearing Referral Physician: Giovani Reason for Referral: Evaluation/Treatment Medical History Pertinent Medical History: COPD, DM, HTN Additional Medical History anxiety/depression, asthma, HLD, ZOHREH, bladder suspension, cataract removal, hysterectomy, rotator cuff repair, spinal cord stimulator (2017), Reviewed History: Yes Social History Home: Single Level Current Living Status: Alone Entry Into Home: Stairs Without Railing PT Steps Into Home: 2 Prior Prior Level of Function SCALE: Activities may be completed with or without assistive devices. 4-Ertpggdrrf-kkgqjgn completes the activity by him/herself with no assistance from a helper. 5-Set-up or Clean-up Assistance-helper sets up or cleans up; patient completes activity. [place] assists only prior to or following the activity. 4-Supervision or Touching Assistance-helper provides verbal cues and/or touching/steadying and/or contact guard assistance as patient completes activity. Assistance may be provided throughout the activity or intermittently. 3-Partial/Moderate Assistance-helper does LESS THAN HALF the effort. [place] lifts, holds or supports trunk or limbs, but provides less than half the effort. 2-Substantial/Maximal Assistance-helper does MORE THAN HALF the effort. [place] lifts or holds trunk or limbs and provides more than half the effort. 7-Ejacdhsyy-sbkazl does ALL the effort. Patient does none of the effort to complete the activity. Or, the assistance of 2 or more helpers is required for the patient to complete the activity. If activity was not attempted, code reason: 7-Patient Refused. 9-Not Applicable-not attempted and the patient did not perform the activity before the current illness, exacerbation or injury. 10-Not Attempted due to Environmental Limitations-(lack of equipment, weather restraints, etc.). 88-Not Attempted due to Medical Conditions or Safety Concerns. Bed Mobility: 6 Transfers (B,C,W/C): 6 Gait: 6 Stairs: 6 Wheelchair Mobility: 9 Indoor Mobility (Ambulation): Independent Stairs: Independent Prior Devices Use: None PT Evaluation-Current Subjective Patient presents upright in wheelchair. Pt agrees to PT. Pt reports unrated pain in L lateral thigh, and later reports numbness in R thigh. Pt/Family Goals Return Home Objective Patient Orientation: Person, Place, Time, Eyes Open, Situation Attachments: Other-See Comments (Back Brace) ROM/Strength ROM Lower Extremities WFL Strength Lower Extremities R hip flex 4+/5 L hip flex 3+/5 R knee ext 5/5 K knee ext 4/5 Sensory Hearing: Functional Sensation Right Lower Extremit: Intact Sensation Left Lower Extremity: Intact Sensation Lower Extremities BLE sensation intact to light touch L2-S2 Transfers Roll Left & Right (QC): 4 Sit to Lying (QC): 4 Lying to Sitting/Side of Bed(Q: 4 Sit to Stand (QC): 4 Chair/Bvq-kl-Qjsrk Xfer(QC): 4 Toilet Transfer (QC): 4 Car Transfer (QC): 3 Pt required min assist with car transfer in order to lift left leg over threshold to get out. Gait Does the Patient Walk?: Yes Mode of Locomotion: Walk Anticipated Mode of Locomotion: Walk Walk 10 feet (QC): 4 Walk 50 ft with 2 Turns(QC): 4 Walk 150 ft (QC): 4 Walking 10ft/uneven surface-QC: 4 Distance: 150'x2 Gait Assistive Device: FWW Comments/Gait Description Pt uses walk through pattern. Pt has slight limb or heavy step on R leg but when asked about denies any pain in either leg. Wheelchair Training Does the Pt Use a Wheelchair?: No Wheel 50 ft with 2 turns (QC): 9 Wheel 150 ft (QC): 9 Stairs #of Steps: 1 1 Step (curb) (QC): 4 4 Steps (QC): 88 12 Steps (QC): 88 Patient ascended/descended one step without use of AD but CGA from therapist. Balance Sitting Static: Normal Sitting Dynamic: Normal Standing Static: Normal Standing Dynamic: Normal Picking up an Object (QC): 88 Treatment Standing balance with UE manipulation, eyes closed, and uneven surface Bathing and dressing Assessment/Needs Pt is able to complete log roll and is aware of her back precautions; pt able to don/doff brace. Pt struggles to push off stable to surface with sit<->stand despite multiple cues. Pt was able to stand through majority of shower. Rehab Potential: Fair PT Short Term Goals Short Term Goals Time Frame: Apr 19, 2020 Roll Left & Right: 6 Sit to lyin Lying to sitting on side of be: 6 Sit to stand: 5 Chair/hsj-wk-gvger transfer: 5 Car transfer: 4 Walk 10 feet: 5 Walk 50 feet with two turns: 5 Walk 150 feet: 5 1 step (curb): 4 4 steps: 4 PT Senior Piping Designer Goals Nursing Home Goals PT Senior Piping Designer Goals Time Frame: Apr 26, 2020 Roll Left & Right (QC): 6 Sit to Lying (QC): 6 Lying-Sitting on Side/Bed(QC): 6 Sit to Stand (QC): 6 Chair/Tkn-ru-Dsrdg Xfer(QC): 6 Toilet Transfer (QC): 6 Car Transfer (QC): 6 Does the Patient Walk: Yes Walk 10 feet (QC): 6 Walk 50ft with 2 Turns (QC): 6 Walk 150 ft (QC): 6 Walking 10ft on Uneven Surface: 6 1 Step (curb) (QC): 6 4 Steps (QC): 6 12 Steps (QC): 6 Picking up an Object (QC): 88 Wheel 50 feet with 2 turns (QC: 9 Wheel 150 feet: 9 PT Plan Problem List Problem List: Activity Tolerance, Functional Strength, Safety, Balance, Gait, Transfer, Bed Mobility, ROM Treatment/Plan Treatment Plan: Continue Plan of Care Treatment Plan: Bed Mobility, Education, Functional Activity [place], Functional Strength, Group Therapy, Gait, Safety, Therapeutic Exercise, Transfers Treatment Duration: Apr 26, 2020 Frequency: At least 5 of 7 days/Wk (IRF) Estimated Hrs Per Day: 1.5 hours per day Patient and/or Family Agrees t: Yes Safety Risks/Education Patient Education: Gait Training, Transfer Techniques, Steps, Reviewed Precautions, Correct Positioning, Reviewed Don/Doff Brace, Safety Issues Teaching Recipient: Patient Teaching Methods: Demonstration, Discussion Response to Teaching: Reinforcement Needed Discharge Recommendations Plan Pt will work on bed mobility, transfers, balance training and gait training, stairs, and therapeutic exercises. Therapy Discharge Recommendati: Home & Family Time/GCodes Time In: 1000 Time Out: 1140 Total Billed Treatment Time: 90 Total Billed Treatment 1 visit EVM 10' NM 30' GT 20' FA 30' PT Eval [id number]; PT treat [id number]; OT eval [id number]; Co-treat with OT 1025- 1140 due to patients limitations in mobility, strength, and coordination of UEs and LEs; PT focused on standing balance, transfers and mobility while OT focused on bathing, dressing, and ADLs. CARIN JACOBSEN PT Apr 12, 2020 12:02
[2020-04-12] MEDS: SENNA W/DOCUSATE (SENOKOT S) TABLET PO SCH ×2 (12:42→20:35)
[2020-04-12] MEDS: polyethylene glycoL POWDER 17 GM (MIRALAX) PACK PO SCH ×2 (12:42→20:39)
--- NOTE | 2020-04-12 12:58 | Progress Note ---
JAMES JACKMAN MED STUDENT 04/12/20 1258: Progress Note Patient is a pleasant 70 year old white female who was admitted today from [place] after recent surgery to correct lumbar stenosis with neurogenic claudication. She reports improvement in her back pain since the surgery, but has numbness in the right inner thigh and weakness in the left leg. 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 She notes bending forward to use the sewing machine, so mechanics of this will need to be looked into as this is an activity that the patient enjoys. Per patient, she is able to sort out and organize her medications. She lives alone, is . Her family has been helping her with errands due to the COVID-19 pandemic. Her children have also come to help clean around the house and yard since previous pain limited her ability to do so. She seems a flat affect today, though becomes slightly more animated when talking about her sewing projects. She was able to maintain the course of the conversation without any tangents. Goals of therapy are for ambulation without the use of the walker and improved performance on ADLs. She would like to be able to do more housework than she could prior to surgery. Continue to monitor weakness in the left leg and numbness in right inner thigh to ensure this is not worsening. ESTEE BURCIAGA DO 04/12/202054: Supervisory-Addendum Brief Verification & Attestation Participated in pt care: history, MDM, physical Personally performed: exam, history, MDM, supervision of care Care discussed with: Medical Student Procedures: n/a Results interpretation: Verified all documentation Verification and Attestation of Medical Student E/M Service A medical student performed and documented this service in my presence. I reviewed and verified all information documented by the medical student and made modifications to such information, when appropriate. I personally performed the physical exam and medical decision making. Estee Burciaga, Apr 12, 2020,20:55 JAMES JACKMAN MED STUDENT Apr 12, 2020 12:58 ESTEE BURCIAGA DO Apr 12, 2020 20:55
--- NOTE | 2020-04-12 15:57 | ST Cognitive Linguistic Eval ---
Speech Evaluation-General Medical Diagnosis Lumbar Stenosis Onset Date: Apr 10, 2020 Therapy Diagnosis Therapy Diagnosis: Cognitive-communication Referral Referring Physician: Dr. Matute Medical History Pertinent Medical History: COPD, DM, HTN Reviewed History: Yes Social History Current Living Status: Alone Speech PLF-Current Status Prior Level of Function Patient lives alone, however her 20 y/o son will be moving in with her. Prior to her surgery she was independent with her daily needs. Subjective Patient was pleasant and cooperative with the cognitive assessment. Language Eval: Auditory Comprehends Simple Yes/No Ques: Functional Indent/Objects Multiple [place]uber: Functional Ident/Pics in Multiple Gruber: Functional Follows 1-Step Commands: Functional Follows Complex Directions: Functional Follows General Conversations: Functional Language Eval: Verbal Language Completes Spontaneous Greeting: Functional Produces Auto, Serial Info: Functional Imitates Simple Words/Phrases: Functional Word Finding: Functional Requests Basic Needs: Functional States Basic Personal Info: Functional Expresses Complex Ideas: Functional Objective Cognitive Domain Attention: WNL Memory: WNL Problem Solving: Functional Executive Functions: WNL Visuospatial Skills: WNL Composite Severity Rating: WNL Clock Drawing Severity Rating: WNL Objective Formal/Standardized Tests [facility] Status ([facility]) Results 28/30, within normal range of function Oral Motor/Speech Production Within Normal Limits Impression Patient is a pleasant 70 y/o female who was admitted to the ARU s/p spinal surgery. Patient was given the SLUMS with a score of 28/30 obtained. At this time ST services are not indicated. Speech Patient Assess Expression of Ideas/Wants: Expression (4) Understanding Verbal Content: Understands (4) Brief Interview-Mental Status: Yes Repetition of Three Words: Three (3) Temporal Orientation: Year: Correct (3) Temporal Orientation: Month: Accurate within 5 days(2) Temporal Orientation: Day: Correct (1) Recall : Wear to say "Sock": Yes, no cue required (2) Recall : Color: Yes, no cue required (2) Recall : Bed: Yes,after cueing (1) Memory/Recall Ability: Current season, Location of own room, That he or she is in a hsp/hsp unit Speech-Plan Patient/Family Goals Patient/Family Goals: Patient plans on returning to her home where she will live with her son. Treatment Plan Speech Therapy Treatment Plan: Continue Plan of Care Treatment Duration: Apr 12, 2020 Frequency: 1 time per week Estimated Hrs Per Day: .5 hour per day Rehab Potential: Good Barriers to Learning: None identified Pt/Family Agrees to Plan: Yes Safety Risks/Education Teaching Recipient: Patient Teaching Methods: Discussion Response to Teaching: Verbalize Understanding Education Topics Provided: Safety within her room, communication of wants/needs Time Speech Therapy Time In: 15:00 Speech Therapy Time Out: 15:15 Total Billed Time: 15 Billed Treatment Time 1, CHEMO Gu Apr 12, 2020 15:57
[2020-04-12] MEDS: TROSPIUM 20 MG (SANCTURA) TAB PO SCH (17:27)
[2020-04-12] MEDS: glipiZIDE 5 MG (GLUCOTROL) TAB PO SCH (17:28)
[2020-04-12 17:37] VITALS: BP 145/65
[2020-04-12] MEDS: PREGABALIN 75 MG (LYRICA) CAP PO SCH (20:35)
[2020-04-12] MEDS: meTOprolol TARTRATE 50 MG (LOPRESSOR) TAB PO SCH (20:35)
[2020-04-12] MEDS: traZODone 100 MG (DESYREL) TAB PO SCH (20:36)
[2020-04-12] MEDS: PRAMIPEXOLE 0.5 MG TAB (MIRAPEX) PO SCH (20:36)
[2020-04-12] MEDS: LOSARTAN 50 MG (COZAAR) TAB PO SCH (20:36)
[2020-04-12] MEDS: DOCUSATE SODIUM 10 MG/ML 10 ML UDC (COLACE) PO SCH (20:37)
[2020-04-12] MEDS: ADVAIR HFA 115/21 MCG INHALER 8 GM IH SCH (21:11)
[2020-04-13] MEDS: VITAMIN D3 25 MCG (1,000 UNITS) TABLET PO SCH (05:17)
[2020-04-13] MEDS: MULTIVIT W/MINERALS TAB (THERAGRAN M) PO SCH (05:18)
[2020-04-13] MEDS: TROSPIUM 20 MG (SANCTURA) TAB PO SCH ×2 (05:18→17:39)
[2020-04-13 05:52] LABS: BASOPHILS # (AUTO) 0.1 10^3/uL (0.0-0.1); BASOPHILS % (AUTO) 1 % (0-10); EOSINOPHILS # (AUTO) 0.1 10^3/uL (0.0-0.3); EOSINOPHILS % (AUTO) 2 % (0-10); HEMATOCRIT 39 % (35-52); HEMOGLOBIN 12.3 g/dL (11.5-16.0); LYMPHOCYTES # (AUTO) 2.5 10^3/uL (1.0-4.0); LYMPHOCYTES % (AUTO) 32 % (12-44); MEAN CORPUSCULAR HEMOGLOBIN 29 pg (25-34); MEAN CORPUSCULAR HGB CONC 32 g/dL (32-36); MEAN CORPUSCULAR VOLUME 93 fL (80-99); MONOCYTES # (AUTO) 0.8 10^3/uL (0.0-1.0); MONOCYTES % (AUTO) 10 % (0-12); NEUTROPHILS # (AUTO) 4.1 10^3/uL (1.8-7.8); NEUTROPHILS % (AUTO) 54 % (42-75); PLATELET COUNT 180 10^3/uL (130-400); WHITE BLOOD COUNT 7.7 10^3/uL (4.3-11.0)
[2020-04-13] MEDS: LACTULOSE SYRUP 10GM/15ML (ENULOSE) 30ML UDC PO PRN (06:01)
--- NOTE | 2020-04-13 06:10 | PM&R Progress Note ---
Subjective HPI/CC On Admission Date Seen by Provider: Apr 13, 2020 Time Seen by Provider: 06:00 Subjective/Events-last exam Patient settling in well No changes in status Pain is well controlled No falls BM regimen to continue until post op constipation is resolved Checked meds and labs Conferred with RN Reviewed therapy notes Review of Systems General: Fatigue, Malaise Musculoskeletal: back pain, leg pain Neurological: Weakness Objective Exam Vital Signs Vital Signs Date Time Temp Pulse Resp B/P (MAP) Pulse Ox O2 Delivery O2 Flow Rate FiO2 04/14/20 09:00 Room Air 04/14/20 06:00 36.2 71 17 142/67 (92) 95 Capillary Refill : Less Than 3 Seconds General Appearance: No Apparent Distress, WD/WN, Chronically ill, Obese HEENT: PERRL/EOMI, Normal ENT Inspection, Pharynx Normal Neck: Full Range of Motion, Normal Inspection, Non Tender, Supple, Carotid Bruit Respiratory: Chest Non Tender, Lungs Clear, Normal Breath Sounds, No Accessory Muscle Use, No Respiratory Distress Cardiovascular: Regular Rate, Rhythm, No Edema, No Gallop, No JVD, No Murmur, N ormal Peripheral Pulses Gastrointestinal: Normal Bowel Sounds, No Organomegaly, No Pulsatile Mass, Non Tender, Soft Back: Normal Inspection, No CVA Tenderness, Decreased Range of Motion, Muscle Spasm, Vertebral Tenderness Extremity: Normal Capillary Refill, Normal Inspection, Normal Range of Motion, Non Tender, No Calf Tenderness, No Pedal Edema Neurologic/Psychiatric: Alert, Oriented x3, No Motor/Sensory Deficits, Normal Mood/Affect, blood bank order control clerk II-XII Norm as Tested, Motor Weakness (generalized lower extremities but right leg 3/5 left leg 4/5) Skin: Normal Color, Warm/Dry Lymphatic: No Adenopathy Results/Procedures Lab Patient resulted labs reviewed. FIM Transfers Therapy Code Descriptions/Definitions Functional [place] Measure: 0=Not Assessed/NA 4=Minimal Assistance 1=Total Assistance 5=Supervision or Setup 2=Maximal Assistance 6=Modified [place] 3=Moderate Assistance 7=Complete IndependenceSCALE: Activities may be completed with or without assistive devices. 1-Xqvekkbjpt-lbtmxdp completes the activity by him/herself with no assistance from a helper. 5-Set-up or Clean-up Assistance-helper sets up or cleans up; patient completes activity. [place] assists only prior to or following the activity. 4-Supervision or Touching Assistance-helper provides verbal cues and/or touching/steadying and/or contact guard assistance as patient completes activi ty. Assistance may be provided throughout the activity or intermittently. 3-Partial/Moderate Assistance-helper does LESS THAN HALF the effort. [place] lifts, holds or supports trunk or limbs, but provides less than half the effort. 2-Substantial/Maximal Assistance-helper does MORE THAN HALF the effort. [place] lifts or holds trunk or limbs and provides more than half the effort. 9-Xuxzrygkq-axptul does ALL the effort. Patient does none of the effort to complete the activity. Or, the assistance of 2 or more helpers is required for the patient to complete the activity. If activity was not attempted, code reason: 7-Patient Refused. 9-Not Applicable-not attempted and the patient did not perform the activity before the current illness, exacerbation or injury. 10-Not Attempted due to Environmental Limitations-(lack of equipment, weather restraints, etc.). 88-Not Attempted due to Medical Conditions or Safety Concerns. Roll Left to Right (QC): 4 Sit to Lying (QC): 4 Sit to Stand (QC): 4 Chair/Wwf-me-Emviq Xfer(QC): 4 Car Transfer (QC): 3 Gait Training Does the Patient Walk?: Yes Walk 10 feet (QC): 4 Walk 50 ft with 2 Turns(QC): 4 Walk 150 ft (QC): 4 Walking 10ft/uneven surface-QC: 4 Gait Assistive Device: FWW Wheelchair Training Does the Pt Use a Wheelchair?: No Wheel 50 ft with 2 turns (QC): 9 Wheel 150 ft (QC): 9 Stair Training #of Steps: 1 1 Step (curb) (QC): 4 4 Steps (QC): 88 12 Steps (QC): 88 Balance Picking up an Object (QC): 88 ADL-Treatment Eating (QC): 6 (Per pt report, she is able to use utensils, cut food, open containers and bring food to mouth) Oral Hygiene (QC): 4 (SBA standing at sink) Shower/Bathe Self (QC): 3 (Assist to wash BLE lower legs/feet.) Upper Body Dressing (QC): 3 (Pt donned bra, shirt and back brace. Min A with clasp of bra, and min A with back brace.) Lower Body Dressing (QC): 3 (Pt donned/doffed underwear and pants. Pt able to doff independently, required assistance with threading RLE into pants/underwear. SBA in stand for pant hike.) On/Off Footwear (QC): 3 (Mod A, pt able to doff shoes, required assistance donning BLE gripper socks.) Toileting Hygiene (QC): 4 (Pt able to perform hygiene and clothing management, SBA.) Assessment/Plan Assessment and Plan Assess & Plan/Chief Complaint Assessment: Lumbar radiculopathy s/p surgery POD # 3 ZOHREH on CPAP with 3L/min O2 bleeding into machine Obesity DM HTN DM HLP OAB RLS Anxiety Plan: Monitor pain IRF protocol Accuchecks Home meds 04/13/20: Pain control Ambulate with PT Fall risk (1) Lumbar radiculopathy (2) Diabetes (3) Essential (primary) hypertension (4) Pure hypercholesterolemia, unspecified (5) ZOHREH on CPAP (6) Nocturnal hypoxia (7) Obesity (8) Overactive bladder KAYLEEN BURCIAGA DO Apr 13, 2020 06:10
--- NOTE | 2020-04-13 06:10 | Individualized Plan of Care ---
Individualized Plan of Care Rehab Nursing IPOC Order Admission Date Apr 12, 2020 at 09:50 Current Orders Orders Admission Order(Inpt,Obs,Sdc) (04/12/20 05:18) Vital Signs: Per Unit Policy ( 08,16,00 (04/12/20 05:18) Eduard Noble 09,21 (04/12/20 05:18) Sequential Compression Device Q4H (04/12/20 05:18) Batch Room Technician-Inpt Rehab Con (04/12/20 05:18) Rehab Nursing Orders-Ipoc (04/12/20 05:18) Physical Therapy Rehab Orders (04/12/20 05:18) Occupational Therapy Rehab Ord (04/12/20 05:18) Speech Therapy Rehab Orders (04/12/20 05:18) Cbc With Automated Diff (04/13/20 06:00) Comprehensive Metabolic Panel (04/13/20 06:00) General/Regular (04/12/20 Breakfast) Intake & Output 06,14,22 (04/12/20 05:18) Precautions (Aru) (04/12/20 05:18) Rehab-Intensity Of Therapy (04/12/20 05:18) Initiate Admission Nursing Pro .admission (04/12/20 05:18) Alprazolam Tablet (Xanax Tablet) (04/12/20 05:30) Calcium Carbonate Chew Tablet (Antacid C (04/12/20 05:30) Diphenhydramine Tablet (Benadryl Tablet) (04/12/20 05:30) Docusate Sodium Capsule (Colace Capsule) (04/12/20 09:00) Docusate Sodium Capsule (Colace Capsule) (04/12/20 05:30) Bisacodyl Suppository (Dulcolax Supposit (04/12/20 05:30) Lactulose Oral Solution (Enulose Oral So (04/12/20 05:30) Na Phos/Na Biphos Enema (Fleet Enema Frandy (04/12/20 05:30) Guaifenesin/Codeine Syrup (Robitussin Ac (04/12/20 05:30) Loperamide Tablet (Imodium Tablet) (04/12/20 05:30) Melatonin Tablet (Melatonin Tablet) (04/12/20 05:30) Polyethylene Glycol Powder Pkt (Miralax (04/12/20 09:00) Ondansetron Oral Dissolve Tab (Zofran (04/12/20 05:30) Senna S Tablet (Senokot S Tablet) (04/12/20 09:00) Initiate Admission Nursing Pro .admission (04/12/20 05:18) Vte Contraindication (04/12/20 05:22) Admission Arrival Bed Request (04/12/20 09:52) Albuterol Pre-Mix Nebs (Rt) (Proventil (04/12/20 10:30) Aspirin Enteric Coated Tablet (Ecotrin T (04/13/20 09:00) Glipizide Tablet (Glucotrol Tablet) (04/12/20 18:00) Losartan Tablet (Cozaar Tablet) (04/12/20 21:00) Pramipexole Tablet (Mirapex Tablet) (04/12/20 21:00) Pregabalin Capsule (Lyrica Capsule) (04/12/20 21:00) Trazodone Tablet (Desyrel Tablet) (04/12/20 21:00) Fluticasone/Salmeterol 115/21 (Advair Hf (04/12/20 20:00) Cholecalciferol Capsule/Tablet (Vitamin (04/13/20 07:00) Docusate Sodium Oral Solution (Colace Or (04/12/20 21:00) Metoprolol Tartrate (Ir) Tab (Lopressor (04/12/20 21:00) Therapeutic Multivitamin Tab (Vitamins, (04/13/20 07:00) (Nf) Ubidecarenone/Vit E/Vit E Mix (Co-E (04/13/20 09:00) Svn Small Volume Nebulizer (04/12/20 10:30) Acetaminophen Tablet/Caplet (Tylenol T (04/12/20 11:00) Amlodipine Tablet (Norvasc Tablet) (04/13/20 09:00) Oxycodone/Apap 5/325mg Tablet (Percocet (04/12/20 11:00) Bupropion Sr 12 Hr Tablet (Wellbutrin Sr (04/13/20 09:00) Trospium Tablet (Sanctura Tablet) (04/12/20 16:00) Oxycodone Immediate Rel Tablet (Oxyir Ta (04/12/20 11:15) Ambulate ,, (04/12/20 13:50) Sequential Compression Device Q4H (04/12/20 13:50) Dvt/Vte Risk - Notifiy Physici Q4H (04/12/20 13:50) Patient Visit (04/12/20 ) Pt Eval Low Complexity (04/12/20 ) Ex Neuromuscular, Ea 15 Min (04/12/20 ) Gait Training, Ea 15 Min (04/12/20 ) Functional Activities, Ea 15 (04/12/20 ) Patient Visit (04/12/20 ) Speech Sound Lang Comp (04/12/20 ) Code/Resuscitation (04/12/20 22:32) Patient Visit (04/13/20 ) Gait Training, Ea 15 Min (04/13/20 ) Functional Activities, Ea 15 (04/13/20 ) Exercise Therap, Ea 15 Min (04/13/20 ) Glucerna (04/13/20 Dinner) Rehab Nursing Orders: Ongoing Assess. of Cognitive Status, Ongoing Assess. of Function Status, Bladder Management, Bladder Scan, Bladder Training, Bowel Management, Bowel Training, Disease Management & Educaiton, DVT Prophylaxis, Fall Prevention, Fluid/Electrolyte/Nutrition Mgmt, Infection Prevention, Medic ation Management & Education, Management of Risks & Complications, Management of Skin Intergrity, Nutrition Management, Pain Management, Patient/Family Support, Safety Management Intensity of Therapy to be met Patient to be seen: Min.3h per day/5 of 7d PT IPOC Problem List: Activity Tolerance, Functional Strength, Safety, Balance, Gait, Transfer, Bed Mobility, ROM Treatment Plan: Continue Plan of Care Bed Mobility, Education, Functional Activity [place], Functional Strength, Group Therapy, Gait, Safety, Therapeutic Exercise, Transfers Treatment Duration: Apr 26, 2020 Frequency: At least 5 of 7 days/Wk (IRF) Estimated Hrs Per Day: 1.5 hours per day OT IPOC Problems: Decreased Activ Tolerance, Decreased UE Strength, Impaired Funct Balance, Impaired I ADL's, Impaired Self-Care Skills OT Treatment, Training and Edu: Yes Plan of Care: ADL Retraining, Functional Mobility, Group Exercise/Act as Ind, UE Funct Exercise/Act Treatment Duration: Apr 27, 2020 Frequency: At least 5 of 7 days/Wk (IRF) Estimated Hrs Per Day: 1.5 hours per day [facility] Speech Therapy Treatment Plan: Continue Plan of Care Treatment Duration: Apr 12, 2020 Frequency: 1 time per week Estimated Hrs Per Day: .5 hour per day Batch Room Technician/Case Mgmt Batch Room Technician/Case Managemen: Discharge Planning Dietitian/Lunchroom Supervisor Dietitian/Lunchroom Supervisor to monitor nutritional status and make changes and/or recommendations as needed and work with speech pathology on dietary upgrades as the occur. Physician [facility] Medical Issues being managed closely and that require the 24 hour availability of a physician: Recent complex lumbar spine surgery with resultant disability in patient who lives alone will need strengthening and assistance with ADL's in order to return to live independently Medical Issues: Bowel/Bladder Function, DVT Prophylaxis, Falls Precautions, Fluid/Electrolyte/Nutrition Balance, Infection Protection, Pain Management Brief Synthesis of Preadmission Screen, Post-Admission Evaluation, and Therapy Evaluations: PT OT will both evaluate her needs with back pain and recent surgery restrictions in order to regain ADL's and ambulatory status in order to return to live independently Medical Prognosis: Good Anticipated Length of Stay: 6 days KAYLEEN BURCIAGA DO Apr 13, 2020 06:10
[2020-04-13 06:12] LABS: ALBUMIN 3.9 GM/DL (3.2-4.5); BILIRUBIN,TOTAL 0.5 MG/DL (0.1-1.0); CALCIUM 9.2 MG/DL (8.5-10.1); CREATININE SERUM 0.92 MG/DL (0.60-1.30); POTASSIUM 4.4 MMOL/L (3.6-5.0); TOTAL PROTEIN 6.5 GM/DL (6.4-8.2)
[2020-04-13 06:33] VITALS: BP 151/69
[2020-04-13] MEDS: PREGABALIN 75 MG (LYRICA) CAP PO SCH ×2 (07:48→21:19)
[2020-04-13] MEDS: meTOprolol TARTRATE 50 MG (LOPRESSOR) TAB PO SCH ×2 (07:48→21:20)
[2020-04-13] MEDS: amLODIPine 5 MG (NORVASC) TAB PO SCH (07:48)
[2020-04-13] MEDS: ASPIRIN E.C. 81 MG (ECOTRIN) TAB PO SCH (07:48)
[2020-04-13] MEDS: SENNA W/DOCUSATE (SENOKOT S) TABLET PO SCH ×2 (07:48→21:33)
[2020-04-13] MEDS: LOSARTAN 50 MG (COZAAR) TAB PO SCH ×2 (07:49→21:20)
[2020-04-13] MEDS: DOCUSATE SODIUM 10 MG/ML 10 ML UDC (COLACE) PO SCH ×2 (07:54→21:18)
[2020-04-13] MEDS: glipiZIDE 5 MG (GLUCOTROL) TAB PO SCH ×2 (07:54→17:39)
[2020-04-13] MEDS: buPROPion SR 150 MG (WELLBUTRIN SR) TAB PO SCH (07:55)
[2020-04-13] MEDS: PRAMIPEXOLE 0.5 MG TAB (MIRAPEX) PO SCH ×2 (07:55→21:20)
[2020-04-13] MEDS: ADVAIR HFA 115/21 MCG INHALER 8 GM IH SCH (08:22)
[2020-04-13] MEDS ORDERED: UBIDECARENONE PO SCH (09:00)
[2020-04-13] MEDS ORDERED: VIT E PO SCH (09:00)
[2020-04-13] MEDS ORDERED: [UNRECOGNIZED DRUG - OTHER] PO SCH (09:00)
[2020-04-13] MEDS ORDERED: VIT E MIX PO SCH (09:00)
--- NOTE | 2020-04-13 09:00 | Occupational Ther Daily Note ---
OT Current Status-Daily Note Subjective Pt seated on toilet, agreeable to OT tx. Pt does not verbalize any pain during tx. ADL-Treatment Therapy Code Descriptions/Definitions Functional [place] Measure: 0=Not Assessed/NA 4=Minimal Assistance 1=Total Assistance 5=Supervision or Setup 2=Maximal Assistance 6=Modified [place] 3=Moderate Assistance 7=Complete IndependenceSCALE: Activities may be completed with or without assistive devices. 5-Kxcbbkcunh-gfxewfp completes the activity by him/herself with no assistance from a helper. 5-Set-up or Clean-up Assistance-helper sets up or cleans up; patient completes activity. [place] assists only prior to or following the activity. 4-Supervision or Touching Assistance-helper provides verbal cues and/or touching/steadying and/or contact guard assistance as patient completes activity. Assistance may be provided throughout the activity or intermittently. 3-Partial/Moderate Assistance-helper does LESS THAN HALF the effort. [place] lifts, holds or supports trunk or limbs, but provides less than half the effort. 2-Substantial/Maximal Assistance-helper does MORE THAN HALF the effort. [place] lifts or holds trunk or limbs and provides more than half the effort. 0-Kkzfttmkw-zrfgyw does ALL the effort. Patient does none of the effort to complete the activity. Or, the assistance of 2 or more helpers is required for the patient to complete the activity. If activity was not attempted, code reason: 7-Patient Refused. 9-Not Applicable-not attempted and the patient did not perform the activity before the current illness, exacerbation or injury. 10-Not Attempted due to Environmental Limitations-(lack of equipment, weather restraints, etc.). 88-Not Attempted due to Medical Conditions or Safety Concerns. Oral Hygiene (QC): 6 (IND standing at sink.) Upper Body Dressing (QC): 4 (Pt able to doff/don press puller shirt, SBA with brace for cues of placing straps on brace with doffing.) On/Off Footwear: 3 (Pt doffed bilateral socks, donned shoes. Required assistance donning LLE shoe.) Toileting Hygiene (QC): 6 (Pt able to complete clothing management and hygiene) Toilet Transfer (QC): 6 (IND tranfser on/off commode.) Other Treatment Pt seated on toilet, agreeable to OT. Pt completed toileting, then stood at sink to wash hands. Pt transferred to recliner where she completed upper body dressing and footwear. Pt used FWW to perform functional mobility to gym, A. In order to increase BUE strength and functional endurance, she placed/removed x100 pegs, alternating hands, with 1lb wrist weight on each hand. Pt took rest breaks as needed. Pt used FWW to return to room, SBA, transferring into recliner. Post OT tx, pt seated in recliner, call light in reach and all needs met. Education OT Patient Education: Correct positioning, Energy conservation, Exercise program, Modified ADL techniques, Progress toward Goal/Update tx plan, Purpose of tx/functional activities, Safety issues, Transfer techniques Teaching Recipient: Patient Teaching Methods: Discussion Response to Teaching: Verbalize Understanding OT Retirement Goals Shipping/Receiving Manager Goals Time Frame: Apr 27, 2020 Eating (QC): 6 Oral Hygiene (QC): 6 Toileting Hygiene (QC): 6 Shower/Bathe Self (QC): 6 Upper Body Dressing (QC): 6 Lower Body Dressing (QC): 6 On/Off Footwear (QC): 6 Additional Goals: 1-Demonstrate ADL Tasks, 2-Verbalize Understanding, 3- ImproveStrength/[place] 1=Demonstrate adherence to instructed precautions during ADL tasks. 2=Patient will verbalize/demonstrate understanding of assistive devices/modifications for ADL. 3=Patient will improve strength/tolerance for activity to enable patient to perform ADL's. OT Education/Plan Problem List/Assessment Assessment: Decreased Activ Tolerance, Decreased UE Strength, Impaired I ADL's, Impaired Self-Care Skills Discharge Recommendations Plan/Recommendations: Continue POC Treatment Plan/Plan of Care Patient would benefit from OT for education, treatment and training to promote independence in ADL's, mobility, safety and/or upper extremity function for ADL's. Plan of Care: ADL Retraining, Functional Mobility, Group Exercise/Act as Ind, UE Funct Exercise/Act Treatment Duration: Apr 27, 2020 Frequency: At least 5 of 7 days/Wk (IRF) Estimated Hrs Per Day: 1.5 hours per day Agreement: Yes Rehab Potential: Good Time/GCodes Start Time: 08:00 Stop Time: 09:00 Total Time Billed (hr/min): 60 Billed Treatment Time 1, ADL (15'), FA 3 (45') ADDY RAZA OT Apr 13, 2020 09:00
[2020-04-13] MEDS: BISACODYL 10 MG SUPP (DULCOLAX) PR PRN (10:10)
--- NOTE | 2020-04-13 10:59 | NUR ---
CM/SS ADMISSION Patient was admitted to ARU from [facility] 04/12/20 post op for lumbar radiculopathy with neurogenic claudication. Other comorbidities are, in part, diabetes, essential hypertension, pure hypercholesterolemia, nocturnal hypoxia and ZOHREH, anxiety. Patient resides home alone and was IADL prior with some limitations due to increasing pain. Patient desires to recover to a higher level of functioning post op and regain her independence. She enjoys sewing and wishes to continue with this hobby, she also has expressed she wants to be able to perform her household upkeep at a higher level of ease. PCP: Dr. Bri Hayes MD, [place] PH[facility]ACY: [facility] INSURANCE: Medicare, [facility] Supplement DME: Patient has ZOHREH and is established with a CPAP with 3L O2 bled in. She has a cane and FWW, therapy indicates goal is ambulation without assistive device. She does not have a shower chair. BARRIERS TO DISCHARGE PLAN: None identified at this time. Patient has adequate insurance, support from her children for assistance as needed. Patient is able to manage her affairs and communicate her needs fully. CONTACTS: Masoud Mckeon, Son [address] [place] [address] Catalina Cherrytiz, Daughter (RN and works here at [employer]) [address] [place] [address] Fortunato Mckeon, Son May be moving in with patient after her discharge for a short period of time. Patient understands the purpose and process of the weekly patient care conference and that her first review will be April 18.
--- NOTE | 2020-04-13 12:13 | Physical Therapy Daily Note ---
PT Daily Note-Current Subjective Pt.agrees to Rx, wants to be given up ad meena status. Has been constipated and had suppository and hoping for relief Pain Location: No Pain Reported Mental Status Patient Orientation: Normal For Age Attachments: Other-See Comments (back brace) Transfers SCALE: Activities may be completed with or without assistive devices. 2-Dlmqxzwxyr-rvbxota completes the activity by him/herself with no assistance from a helper. 5-Set-up or Clean-up Assistance-helper sets up or cleans up; patient completes activity. [place] assists only prior to or following the activity. 4-Supervision or Touching Assistance-helper provides verbal cues and/or touching/steadying and/or contact guard assistance as patient completes activity. Assistance may be provided throughout the activity or intermittently. 3-Partial/Moderate Assistance-helper does LESS THAN HALF the effort. [place] lifts, holds or supports trunk or limbs, but provides less than half the effort. 2-Substantial/Maximal Assistance-helper does MORE THAN HALF the effort. [place] lifts or holds trunk or limbs and provides more than half the effort. 8-Tbkphwiza-fkjapn does ALL the effort. Patient does none of the effort to complete the activity. Or, the assistance of 2 or more helpers is required for the patient to complete the activity. If activity was not attempted, code reason: 7-Patient Refused. 9-Not Applicable-not attempted and the patient did not perform the activity before the current illness, exacerbation or injury. 10-Not Attempted due to Environmental Limitations-(lack of equipment, weather restraints, etc.). 88-Not Attempted due to Medical Conditions or Safety Concerns. Roll Left & Right (QC): 6 Sit to Lying (QC): 6 Lying to Sitting/Side of Bed(Q: 6 Sit to Stand (QC): 6 Chair/Mjl-cg-Bxqai Xfer(QC): 6 Toilet Transfer (QC): 6 Weight Bearing Right Lower Extremity: Right Full Weight Bearing Left Lower Extremity: Left Full Weight Bearing Gait Training Does the Patient Walk?: Yes Walk 10 feet (QC): 6 Walk 50 ft with 2 Turns(QC): 6 Walk 150 ft (QC): 6 Gait Persons Needed: 0 Gait Assistive Device: FWW safe walker management noted Stair Training Stair Training: Handrails/: 2 handrails #of Steps: 4 1 Step (curb) (QC): 4 4 Steps (QC): 6 Exercises Supine Ex: Ankle pumps, Rolling, Glut sets, Heel Slides, Scooting, Hip abd/add Supine Reps: 20 NuStep Minutes: 8 NuStep Workload: 2 Treatments pt. demonstrated indep to ciara and doff brace effectively, pts. gait and TRFs indep, will assess further this PM for up ad meena status Assessment Current Status: Good Progress PT Short Term Goals Short Term Goals Time Frame: Apr 19, 2020 Roll Left & Right: 6 Sit to lyin Lying to sitting on side of be: 6 Sit to stand: 5 Chair/fts-px-mczrq transfer: 5 Car transfer: 4 Walk 10 feet: 5 Walk 50 feet with two turns: 5 Walk 150 feet: 5 1 step (curb): 4 4 steps: 4 PT Night Warehouse Manager Goals Residential Goals PT Night Warehouse Manager Goals Time Frame: Apr 26, 2020 Roll Left & Right (QC): 6 Sit to Lying (QC): 6 Lying-Sitting on Side/Bed(QC): 6 Sit to Stand (QC): 6 Chair/Vsp-nl-Fndxj Xfer(QC): 6 Toilet Transfer (QC): 6 Car Transfer (QC): 6 Does the Patient Walk: Yes Walk 10 feet (QC): 6 Walk 50ft with 2 Turns (QC): 6 Walk 150 ft (QC): 6 Walking 10ft on Uneven Surface: 6 1 Step (curb) (QC): 6 4 Steps (QC): 6 12 Steps (QC): 6 Picking up an Object (QC): 88 Wheel 50 feet with 2 turns (QC: 9 Wheel 150 feet: 9 PT Plan Treatment/Plan Treatment Plan: Continue Plan of Care Treatment Plan: Bed Mobility, Education, Functional Activity [place], Functional Strength, Group Therapy, Gait, Safety, Therapeutic Exercise, Transfers Treatment Duration: Apr 26, 2020 Frequency: At least 5 of 7 days/Wk (IRF) Estimated Hrs Per Day: 1.5 hours per day Patient and/or Family Agrees t: Yes Safety Risks/Education Patient Education: Gait Training, Transfer Techniques, Steps, Correct Positioning, Disease Process, Safety Issues Teaching Recipient: Patient Teaching Methods: Demonstration, Discussion Response to Teaching: Verbalize Understanding, Return Demonstration, Reinforcement Needed Time/GCodes Time In: 1100 Time Out: 1200 Total Billed Treatment Time: 60 Total Billed Treatment 1,GT20m,FA10m,EX30m REANNA KAN MICROBIOLOGY INSTRUCTOR Apr 13, 2020 12:13
--- NOTE | 2020-04-13 13:33 | Occupational Ther Daily Note ---
OT Current Status-Daily Note Subjective Pt seated in recliner, agreeable to OT tx. Pt does not verbalize and pain during tx. ADL-Treatment Therapy Code Descriptions/Definitions Functional [place] Measure: 0=Not Assessed/NA 4=Minimal Assistance 1=Total Assistance 5=Supervision or Setup 2=Maximal Assistance 6=Modified [place] 3=Moderate Assistance 7=Complete IndependenceSCALE: Activities may be completed with or without assistive devices. 4-Hiymywtcnt-fmhopzt completes the activity by him/herself with no assistance from a helper. 5-Set-up or Clean-up Assistance-helper sets up or cleans up; patient completes activity. [place] assists only prior to or following the activity. 4-Supervision or Touching Assistance-helper provides verbal cues and/or touching/steadying and/or contact guard assistance as patient completes activity. Assistance may be provided throughout the activity or intermittently. 3-Partial/Moderate Assistance-helper does LESS THAN HALF the effort. [place] lifts, holds or supports trunk or limbs, but provides less than half the effort. 2-Substantial/Maximal Assistance-helper does MORE THAN HALF the effort. [place] lifts or holds trunk or limbs and provides more than half the effort. 3-Qrlqzhxqt-evspdx does ALL the effort. Patient does none of the effort to complete the activity. Or, the assistance of 2 or more helpers is required for the patient to complete the activity. If activity was not attempted, code reason: 7-Patient Refused. 9-Not Applicable-not attempted and the patient did not perform the activity before the current illness, exacerbation or injury. 10-Not Attempted due to Environmental Limitations-(lack of equipment, weather restraints, etc.). 88-Not Attempted due to Medical Conditions or Safety Concerns. Toileting Hygiene (QC): 6 Toilet Transfer (QC): 6 Other Treatment Pt seated in recliner, used FWW to ambulate around room. Pt performed ADL tasks, including hanging up and organizing clothes in her closet and toileting. Pt returned to chair. In order to strengthen BUEs and increase functional endurance, pt completed x15 reps BUEs of each of the following AROM: shoulder flexion, elbow flexion/extension, wrist flexion/extension, and finger flexion/extension. Pt requests to return to bed prior to PT tx, pt able to transfer from recliner to bed using FWW, pt doffed brace independently, then transferred supine. Post OT tx, pt laying in bed, call light in reach and all needs met. Education OT Patient Education: Correct positioning, Modified ADL techniques, Progress toward Goal/Update tx plan, Purpose of tx/functional activities, Transfer techniques, Use of adapted equipment Teaching Recipient: Patient Teaching Methods: Discussion Response to Teaching: Verbalize Understanding OT Aircraft Dispatcher Goals Residential Goals Time Frame: Apr 27, 2020 Eating (QC): 6 Oral Hygiene (QC): 6 Toileting Hygiene (QC): 6 Shower/Bathe Self (QC): 6 Upper Body Dressing (QC): 6 Lower Body Dressing (QC): 6 On/Off Footwear (QC): 6 Additional Goals: 1-Demonstrate ADL Tasks, 2-Verbalize Understanding, 3- ImproveStrength/[place] 1=Demonstrate adherence to instructed precautions during ADL tasks. 2=Patient will verbalize/demonstrate understanding of assistive devices/modifications for ADL. 3=Patient will improve strength/tolerance for activity to enable patient to perform ADL's. OT Education/Plan Problem List/Assessment Assessment: Decreased Activ Tolerance, Decreased UE Strength, Impaired I ADL's, Impaired Self-Care Skills Discharge Recommendations Plan/Recommendations: Continue POC Treatment Plan/Plan of Care Patient would benefit from OT for education, treatment and training to promote independence in ADL's, mobility, safety and/or upper extremity function for ADL's. Plan of Care: ADL Retraining, Functional Mobility, Group Exercise/Act as Ind, UE Funct Exercise/Act Treatment Duration: Apr 27, 2020 Frequency: At least 5 of 7 days/Wk (IRF) Estimated Hrs Per Day: 1.5 hours per day Agreement: Yes Rehab Potential: Good Time/GCodes Start Time: 13:00 Stop Time: 13:30 Total Time Billed (hr/min): 30 Billed Treatment Time 1, ADL (20'), EX (10') ADDY RAZA OT Apr 13, 2020 13:33
[2020-04-13] MEDS: polyethylene glycoL POWDER 17 GM (MIRALAX) PACK PO SCH ×2 (15:09→21:32)
--- NOTE | 2020-04-13 15:11 | Physical Therapy Daily Note ---
PT Daily Note-Current Subjective Pt. agrees to Rx. Wants to strive for up ad meena status today Pain Location: No Pain Reported Mental Status Patient Orientation: Normal For Age Attachments: Other-See Comments (back brace and mask while out of room) Transfers SCALE: Activities may be completed with or without assistive devices. 6-Ocgqundozk-dlwuuoj completes the activity by him/herself with no assistance from a helper. 5-Set-up or Clean-up Assistance-helper sets up or cleans up; patient completes activity. [place] assists only prior to or following the activity. 4-Supervision or Touching Assistance-helper provides verbal cues and/or touching/steadying and/or contact guard assistance as patient completes activity. Assistance may be provided throughout the activity or intermittently. 3-Partial/Moderate Assistance-helper does LESS THAN HALF the effort. [place] lifts, holds or supports trunk or limbs, but provides less than half the effort. 2-Substantial/Maximal Assistance-helper does MORE THAN HALF the effort. [place] lifts or holds trunk or limbs and provides more than half the effort. 0-Jyorjntnh-vadhdn does ALL the effort. Patient does none of the effort to complete the activity. Or, the assistance of 2 or more helpers is required for the patient to complete the activity. If activity was not attempted, code reason: 7-Patient Refused. 9-Not Applicable-not attempted and the patient did not perform the activity before the current illness, exacerbation or injury. 10-Not Attempted due to Environmental Limitations-(lack of equipment, weather restraints, etc.). 88-Not Attempted due to Medical Conditions or Safety Concerns. pt. demonstrates in out bed and on off toilet indep as well as managing to arrange her bed and tray table and FWW to make the process accessible for in out process. Weight Bearing Right Lower Extremity: Right Full Weight Bearing Left Lower Extremity: Left Full Weight Bearing Gait Training Does the Patient Walk?: Yes Gait Assistive Device: FWW 170 ft x 2 , 10 ft x 2 FWW mod I Treatments doned brace indep, had some difficulty donning house shoes indep and it was decided that through the night pt. would wear hosp gripper socks for safety and have assist for donning shoes in the day. Repeat Photocomposing Machine Operator grabber was distributed by OT Assessment Current Status: Good Progress advanced to up ad meena status, nursing advised PT Short Term Goals Short Term Goals Time Frame: Apr 19, 2020 Roll Left & Right: 6 Sit to lyin Lying to sitting on side of be: 6 Sit to stand: 5 Chair/nmn-fy-dbopo transfer: 5 Car transfer: 4 Walk 10 feet: 5 Walk 50 feet with two turns: 5 Walk 150 feet: 5 1 step (curb): 4 4 steps: 4 PT Residential Goals Design Engineer Goals PT Residential Goals Time Frame: Apr 26, 2020 Roll Left & Right (QC): 6 Sit to Lying (QC): 6 Lying-Sitting on Side/Bed(QC): 6 Sit to Stand (QC): 6 Chair/Mav-ef-Rkjvy Xfer(QC): 6 Toilet Transfer (QC): 6 Car Transfer (QC): 6 Does the Patient Walk: Yes Walk 10 feet (QC): 6 Walk 50ft with 2 Turns (QC): 6 Walk 150 ft (QC): 6 Walking 10ft on Uneven Surface: 6 1 Step (curb) (QC): 6 4 Steps (QC): 6 12 Steps (QC): 6 Picking up an Object (QC): 88 Wheel 50 feet with 2 turns (QC: 9 Wheel 150 feet: 9 PT Plan Treatment/Plan Treatment Plan: Continue Plan of Care Treatment Plan: Bed Mobility, Education, Functional Activity [place], Functional Strength, Group Therapy, Gait, Safety, Therapeutic Exercise, Transfers Treatment Duration: Apr 26, 2020 Frequency: At least 5 of 7 days/Wk (IRF) Estimated Hrs Per Day: 1.5 hours per day Patient and/or Family Agrees t: Yes Safety Risks/Education Patient Education: Gait Training, Transfer Techniques, Correct Positioning, Safety Issues Teaching Recipient: Patient Teaching Methods: Demonstration, Discussion Response to Teaching: Verbalize Understanding, Return Demonstration, Reinforcement Needed Time/GCodes Time In: 1430 Time Out: 1500 Total Billed Treatment Time: 30 Total Billed Treatment 1,GT15,,FA15 REANNA KAN RENEWABLE ENERGY TRADER Apr 13, 2020 15:11
[2020-04-13 16:50] VITALS: BP 154/68
--- NOTE | 2020-04-13 17:24 | NUR ---
"RD ASSESSMENT PMHx: COPD; ZOHREH: hypercholesterolemia; HTN; GERD; chronic constipation; irritable bowel; DM PT INTERACTION: Pt was awake and pleasant during nutrition assessment. Pt states current appetite is so-so, and has been this way for about 1w. Note avg PO intake 50% x1d, per chart review. Pt states following a regular diet at home, and has no issues with chewing/swallowing food. Pt states no recent issues with nausea, vomiting, or diarrhea. Pt states some recent issues with constipation, and that her last BM was 04/13. Note pt currently on bowel regimen of colace BID, senna BID, and miralax BID, per chart review. Pt states recent wt gain, but unsure of amount/timeframe. Note recent 9# wt gain x4mon, per chart review. Pt states current DM management is pretty good. Note unable to determine recent HbA1c, per chart review. ABNORMAL NUTRITION-RELATED LAB VALUES LOW: HIGH: BUN 19; glu 137 Est. kcal needs: 3860-8774 kcal | 15-20 kcal/kg Est. Pro needs: 79-99 g Pro | 0.8-1.0 g Pro/kg PES STATEMENT: Inadequate oral intake (NI-2.1) related to loss of appetite and constipation, as evidenced by pt interview and avg PO intake 50% x1d. INTERVENTION: Continue with current diet order of Regular diet. Pt may benefit from consistent CHO diet if blood glucose levels become elevated. Add Glucerna (vary) to meals TID, for increased kcal intake. Provides 220 kcal and 10 g Pro per serving. Did not offer diet education at this time, as pt's lunch tray was being presented during assessment. Will attempt to offer prior to discharge. Will continue to follow and reassess as pt needs, intake, and status change. Paul Briseno, MS RD LD"
--- NOTE | 2020-04-13 19:26 | NUR ---
Bedside report received from KAITLYN LAGUERRE, assume care of pt
[2020-04-13 21:20] VITALS: BP 129/72
[2020-04-13] MEDS: traZODone 100 MG (DESYREL) TAB PO SCH (21:20)
--- NOTE | 2020-04-13 21:28 | NUR ---
pt took Colace but refused miralax & Senokot, c/o back pain level 3/10 on numeric scale, oxyir 5mg given, up ad emena with back brace & walker
--- NOTE | 2020-04-13 22:15 | NUR ---
resting quietly in bed, pain level 0/10 on CNPI SCALE
[2020-04-14] MEDS: TROSPIUM 20 MG (SANCTURA) TAB PO SCH ×2 (05:54→16:10)
[2020-04-14] MEDS: VITAMIN D3 25 MCG (1,000 UNITS) TABLET PO SCH (05:54)
[2020-04-14] MEDS: MULTIVIT W/MINERALS TAB (THERAGRAN M) PO SCH (05:55)
[2020-04-14 06:00] VITALS: BP 142/67
[2020-04-14] MEDS: ADVAIR HFA 115/21 MCG INHALER 8 GM IH SCH ×2 (07:55→18:27)
[2020-04-14] MEDS: ASPIRIN E.C. 81 MG (ECOTRIN) TAB PO SCH (08:13)
[2020-04-14] MEDS: SENNA W/DOCUSATE (SENOKOT S) TABLET PO SCH ×2 (08:13→20:27)
[2020-04-14] MEDS: DOCUSATE SODIUM 10 MG/ML 10 ML UDC (COLACE) PO SCH ×2 (08:13→20:29)
[2020-04-14] MEDS: PREGABALIN 75 MG (LYRICA) CAP PO SCH ×2 (08:13→20:27)
[2020-04-14] MEDS: buPROPion SR 150 MG (WELLBUTRIN SR) TAB PO SCH (08:13)
[2020-04-14] MEDS: amLODIPine 5 MG (NORVASC) TAB PO SCH (08:14)
[2020-04-14] MEDS: PRAMIPEXOLE 0.5 MG TAB (MIRAPEX) PO SCH ×2 (08:14→20:27)
[2020-04-14] MEDS: LOSARTAN 50 MG (COZAAR) TAB PO SCH ×2 (08:14→20:27)
[2020-04-14] MEDS: glipiZIDE 5 MG (GLUCOTROL) TAB PO SCH ×2 (08:14→16:10)
[2020-04-14] MEDS: meTOprolol TARTRATE 50 MG (LOPRESSOR) TAB PO SCH ×2 (08:14→20:27)
[2020-04-14] MEDS: polyethylene glycoL POWDER 17 GM (MIRALAX) PACK PO SCH ×2 (08:15→20:29)
--- NOTE | 2020-04-14 11:17 | Physical Therapy Daily Note ---
PT Daily Note-Current Subjective Pt. states she has had some pain that she believes is incisional pain and the nurse pointed out that she had not been taking pain meds so she has taken some today. Pt. states that being up ad meena in her room has gone well Pain Numeric Pain Scale: 3 Location: Medial Location Body Site: Back Pain Description: Burning Mental Status Patient Orientation: Normal For Age Attachments: Other-See Comments (back brace and mask) Transfers SCALE: Activities may be completed with or without assistive devices. 6-Banjdnaeid-xgpruiq completes the activity by him/herself with no assistance from a helper. 5-Set-up or Clean-up Assistance-helper sets up or cleans up; patient completes activity. [place] assists only prior to or following the activity. 4-Supervision or Touching Assistance-helper provides verbal cues and/or touching/steadying and/or contact guard assistance as patient completes activity. Assistance may be provided throughout the activity or intermittently. 3-Partial/Moderate Assistance-helper does LESS THAN HALF the effort. [place] lifts, holds or supports trunk or limbs, but provides less than half the effort. 2-Substantial/Maximal Assistance-helper does MORE THAN HALF the effort. [place] lifts or holds trunk or limbs and provides more than half the effort. 4-Ukvtunuhl-exihos does ALL the effort. Patient does none of the effort to complete the activity. Or, the assistance of 2 or more helpers is required for the patient to complete the activity. If activity was not attempted, code reason: 7-Patient Refused. 9-Not Applicable-not attempted and the patient did not perform the activity before the current illness, exacerbation or injury. 10-Not Attempted due to Environmental Limitations-(lack of equipment, weather restraints, etc.). 88-Not Attempted due to Medical Conditions or Safety Concerns. Weight Bearing Right Lower Extremity: Right Full Weight Bearing Left Lower Extremity: Left Full Weight Bearing Gait Training Does the Patient Walk?: Yes Gait Assistive Device: FWW confirmed up indep up ad meena,slow but safe 175ft x2 Exercises Seated Therapy Exercises: Ankle pumps, Sit to stand, Long arc quads, Hip flexion, Hip abd/add Seated Reps: 10 NuStep Minutes: 8 NuStep Workload: 2 Assessment Current Status: Good Progress PT Short Term Goals Short Term Goals Time Frame: Apr 19, 2020 Roll Left & Right: 6 Sit to lyin Lying to sitting on side of be: 6 Sit to stand: 5 Chair/znh-jg-vsgut transfer: 5 Car transfer: 4 Walk 10 feet: 5 Walk 50 feet with two turns: 5 Walk 150 feet: 5 1 step (curb): 4 4 steps: 4 PT Manager Market Development Goals Detention Goals PT Manager Market Development Goals Time Frame: Apr 26, 2020 Roll Left & Right (QC): 6 Sit to Lying (QC): 6 Lying-Sitting on Side/Bed(QC): 6 Sit to Stand (QC): 6 Chair/Aze-hy-Dodap Xfer(QC): 6 Toilet Transfer (QC): 6 Car Transfer (QC): 6 Does the Patient Walk: Yes Walk 10 feet (QC): 6 Walk 50ft with 2 Turns (QC): 6 Walk 150 ft (QC): 6 Walking 10ft on Uneven Surface: 6 1 Step (curb) (QC): 6 4 Steps (QC): 6 12 Steps (QC): 6 Picking up an Object (QC): 88 Wheel 50 feet with 2 turns (QC: 9 Wheel 150 feet: 9 PT Plan Treatment/Plan Treatment Plan: Continue Plan of Care Treatment Plan: Bed Mobility, Education, Functional Activity [place], Functional Strength, Group Therapy, Gait, Safety, Therapeutic Exercise, Transfers Treatment Duration: Apr 26, 2020 Frequency: At least 5 of 7 days/Wk (IRF) Estimated Hrs Per Day: 1.5 hours per day Patient and/or Family Agrees t: Yes Safety Risks/Education Patient Education: Correct Positioning Time/GCodes Time In: 1045 Time Out: 1110 Total Billed Treatment Time: 25 Total Billed Treatment 1,EX25m REANNA KAN PARTS ADMINISTRATOR Apr 14, 2020 11:17
--- NOTE | 2020-04-14 16:16 | PM&R Progress Note ---
Subjective HPI/CC On Admission Date Seen by Provider: Apr 14, 2020 Time Seen by Provider: 06:00 Subjective/Events-last exam 04/14/20: Patient finally had large bowel evacuation No pain reported other than her lower back No falls Improved dramatically since admit Patient settling in well No changes in status Pain is well controlled No falls BM regimen to continue until post op constipation is resolved Checked meds and labs Conferred with RN Reviewed therapy notes Review of Systems Musculoskeletal: back pain Objective Exam Vital Signs Vital Signs Date Time Temp Pulse Resp B/P (MAP) Pulse Ox O2 Delivery O2 Flow Rate FiO2 04/14/20 09:00 Room Air 04/14/20 06:00 36.2 71 17 142/67 (92) 95 Capillary Refill : Less Than 3 Seconds General Appearance: No Apparent Distress, WD/WN, Chronically ill, Obese HEENT: PERRL/EOMI, Normal ENT Inspection, Pharynx Normal Neck: Full Range of Motion, Normal Inspection, Non Tender, Supple, Carotid Bruit Respiratory: Chest Non Tender, Lungs Clear, Normal Breath Sounds, No Accessory Muscle Use, No Respiratory Distress Cardiovascular: Regular Rate, Rhythm, No Edema, No Gallop, No JVD, No Murmur, Normal Peripheral Pulses Gastrointestinal: Normal Bowel Sounds, No Organomegaly, No Pulsatile Mass, Non Tender, Soft Back: Normal Inspection, No CVA Tenderness, Decreased Range of Motion, Muscle Spasm, Vertebral Tenderness Extremity: Normal Capillary Refill, Normal Inspection, Normal Range of Motion, Non Tender, No Calf Tenderness, No Pedal Edema Neurologic/Psychiatric: Alert, Oriented x3, No Motor/Sensory Deficits, Normal Mood/Affect, university administrative assistant II-XII Norm as Tested, Motor Weakness (generalized lower extremities but right leg 3/5 left leg 4/5) Skin: Normal Color, Warm/Dry Lymphatic: No Adenopathy Results/Procedures Lab Patient resulted labs reviewed. FIM Transfers Therapy Code Descriptions/Definitions Functional [place] Measure: 0=Not Assessed/NA 4=Minimal Assistance 1=Total Assistance 5=Supervision or Setup 2=Maximal Assistance 6=Modified [place] 3=Moderate Assistance 7=Complete IndependenceSCALE: Activities may be completed with or without assistive devices. 1-Dtmvzjccnn-mvkepmd completes the activity by him/herself with no assistance from a helper. 5-Set-up or Clean-up Assistance-helper sets up or cleans up; patient completes activity. [place] assists only prior to or following the activity. 4-Supervision or Touching Assistance-helper provides verbal cues and/or touching/steadying and/or contact guard assistance as patient completes activity. Assistance may be provided throughout the activity or intermittently. 3-Partial/Moderate Assistance-helper does LESS THAN HALF the effort. [place] lifts, holds or supports trunk or limbs, but provides less than half the effort. 2-Substantial/Maximal Assistance-helper does MORE THAN HALF the effort. [place] lifts or holds trunk or limbs and provides more than half the effort. 1-Uhxesbksb-nezebh does ALL the effort. Patient does none of the effort to complete the activity. Or, the assistance of 2 or more helpers is required for the patient to complete the activity. If activity was not attempted, code reason: 7-Patient Refused. 9-Not Applicable-not attempted and the patient did not perform the activity before the current illness, exacerbation or injury. 10-Not Attempted due to Environmental Limitations-(lack of equipment, weather restraints, etc.). 88-Not Attempted due to Medical Conditions or Safety Concerns. Roll Left to Right (QC): 6 Sit to Lying (QC): 6 Sit to Stand (QC): 6 Chair/Ghj-rv-Vvcce Xfer(QC): 6 Car Transfer (QC): 3 Gait Training Does the Patient Walk?: Yes Walk 10 feet (QC): 6 Walk 50 ft with 2 Turns(QC): 6 Walk 150 ft (QC): 6 Walking 10ft/uneven surface-QC: 4 Gait Persons Needed: 0 Gait Assistive Device: FWW Wheelchair Training Does the Pt Use a Wheelchair?: No Wheel 50 ft with 2 turns (QC): 9 Wheel 150 ft (QC): 9 Stair Training Stair Training: Handrails/: 2 handrails #of Steps: 4 1 Step (curb) (QC): 4 4 Steps (QC): 6 12 Steps (QC): 88 Balance Picking up an Object (QC): 88 ADL-Treatment Eating (QC): 6 (Per pt report, she is able to use utensils, cut food, open containers and bring food to mouth) Oral Hygiene (QC): 6 (IND standing at sink.) Shower/Bathe Self (QC): 3 (Assist to wash BLE lower legs/feet.) Upper Body Dressing (QC): 4 (Pt able to doff/don pick pulling machine operator shirt, SBA with brace for cues of placing straps on brace with doffing.) Lower Body Dressing (QC): 3 (Pt donned/doffed underwear and pants. Pt able to doff independently, required assistance with threading RLE into pants/underwear. SBA in stand for pant hike.) On/Off Footwear (QC): 3 (Pt doffed bilateral socks, donned shoes. Required assistance donning LLE shoe.) Toileting Hygiene (QC): 6 Toilet Transfer (QC): 6 Assessment/Plan Assessment and Plan Assess & Plan/Chief Complaint Assessment: Lumbar radiculopathy s/p surgery POD # 4 ZOHREH on CPAP with 3L/min O2 bleeding into machine Obesity DM HTN DM HLP OAB RLS Anxiety Plan: Monitor pain IRF protocol Accuchecks Home meds 04/13/20: Pain control Ambulate with PT Fall risk 04/14/20: Constipation resolved Monitor closely Pain control (1) Lumbar radiculopathy (2) Diabetes (3) Essential (primary) hypertension (4) Pure hypercholesterolemia, unspecified (5) ZOHREH on CPAP (6) Nocturnal hypoxia (7) Obesity (8) Overactive bladder KAYLEEN BURCIAGA DO Apr 14, 2020 16:16
[2020-04-14 17:59] VITALS: BP 115/64
[2020-04-14] MEDS: traZODone 100 MG (DESYREL) TAB PO SCH (20:27)
[2020-04-15] MEDS: VITAMIN D3 25 MCG (1,000 UNITS) TABLET PO SCH (05:29)
[2020-04-15] MEDS: MULTIVIT W/MINERALS TAB (THERAGRAN M) PO SCH (05:29)
[2020-04-15] MEDS: TROSPIUM 20 MG (SANCTURA) TAB PO SCH ×2 (05:30→16:33)
[2020-04-15 06:00] VITALS: BP 112/56
--- NOTE | 2020-04-15 06:14 | PM&R Progress Note ---
Subjective HPI/CC On Admission Date Seen by Provider: Apr 15, 2020 Time Seen by Provider: 06:00 Subjective/Events-last exam 04/15/20: Patient improved dramatically Back pain improved BM+ 04/14/20: Patient finally had large bowel evacuation No pain reported other than her lower back No falls Improved dramatically since admit Patient settling in well No changes in status Pain is well controlled No falls BM regimen to continue until post op constipation is resolved Checked meds and labs Conferred with RN Reviewed therapy notes Review of Systems General: Fatigue, Malaise Musculoskeletal: back pain Objective Exam Vital Signs Vital Signs Date Time Temp Pulse Resp B/P (MAP) Pulse Ox O2 Delivery O2 Flow Rate FiO2 04/15/20 21:00 Room Air 04/15/20 20:50 83 18 122/63 (82) 95 04/15/20 20:12 3.00 04/15/20 17:12 36.9 Capillary Refill : Less Than 3 Seconds General Appearance: No Apparent Distress, WD/WN, Chronically ill, Obese HEENT: PERRL/EOMI, Normal ENT Inspection, Pharynx Normal Neck: Full Range of Motion, Normal Inspection, Non Tender, Supple, Carotid Bruit Respiratory: Chest Non Tender, Lungs Clear, Normal Breath Sounds, No Accessory Muscle Use, No Respiratory Distress Cardiovascular: Regular Rate, Rhythm, No Edema, No Gallop, No JVD, No Murmur, Normal Peripheral Pulses Gastrointestinal: Normal Bowel Sounds, No Organomegaly, No Pulsatile Mass, Non Tender, Soft Back: Normal Inspection, No CVA Tenderness, Decreased Range of Motion, Muscle Spasm, Vertebral Tenderness Extremity: Normal Capillary Refill, Normal Inspection, Normal Range of Motion, Non Tender, No Calf Tenderness, No Pedal Edema Neurologic/Psychiatric: Alert, Oriented x3, No Motor/Sensory Deficits, Normal Mood/Affect, medical services assistant II-XII Norm as Tested, Motor Weakness (generalized lower extremities but right leg 3/5 left leg 4/5) Skin: Normal Color, Warm/Dry Lymphatic: No Adenopathy Results/Procedures Lab Patient resulted labs reviewed. FIM Transfers Therapy Code Descriptions/Definitions Functional [place] Measure: 0=Not Assessed/NA 4=Minimal Assistance 1=Total Assistance 5=Supervision or Setup 2=Maximal Assistance 6=Modified [place] 3=Moderate Assistance 7=Complete IndependenceSCALE: Activities may be completed with or without assistive devices. 4-Nnqiupejlv-dvzqpwk completes the activity by him/herself with no assistance from a helper. 5-Set-up or Clean-up Assistance-helper sets up or cleans up; patient completes activity. [place] assists only prior to or following the activity. 4-Supervision or Touching Assistance-helper provides verbal cues and/or t ouching/steadying and/or contact guard assistance as patient completes activity. Assistance may be provided throughout the activity or intermittently. 3-Partial/Moderate Assistance-helper does LESS THAN HALF the effort. [place] lifts, holds or supports trunk or limbs, but provides less than half the effort. 2-Substantial/Maximal Assistance-helper does MORE THAN HALF the effort. [place] lifts or holds trunk or limbs and provides more than half the effort. 3-Copcuywyy-ijoucw does ALL the effort. Patient does none of the effort to complete the activity. Or, the assistance of 2 or more helpers is required for the patient to complete the activity. If activity was not attempted, code reason: 7-Patient Refused. 9-Not Applicable-not attempted and the patient did not perform the activity before the current illness, exacerbation or injury. 10-Not Attempted due to Environmental Limitations-(lack of equipment, weather restraints, etc.). 88-Not Attempted due to Medical Conditions or Safety Concerns. Roll Left to Right (QC): 6 Sit to Lying (QC): 6 Sit to Stand (QC): 6 Chair/Yti-nc-Ihmag Xfer(QC): 6 Car Transfer (QC): 3 Gait Training Does the Patient Walk?: Yes Walk 10 feet (QC): 6 Walk 50 ft with 2 Turns(QC): 6 Walk 150 ft (QC): 6 Walking 10ft/uneven surface-QC: 4 Gait Persons Needed: 0 Gait Assistive Device: FWW Wheelchair Training Does the Pt Use a Wheelchair?: No Wheel 50 ft with 2 turns (QC): 9 Wheel 150 ft (QC): 9 Stair Training Stair Training: Handrails/: 2 handrails #of Steps: 4 1 Step (curb) (QC): 4 4 Steps (QC): 6 12 Steps (QC): 88 Balance Picking up an Object (QC): 88 ADL-Treatment Eating (QC): 6 (Per pt report, she is able to use utensils, cut food, open containers and bring food to mouth) Oral Hygiene (QC): 6 (IND standing at sink.) Shower/Bathe Self (QC): 3 (Assist to wash BLE lower legs/feet.) Upper Body Dressing (QC): 4 (Pt able to doff/don pull worker shirt, SBA with brace for cues of placing straps on brace with doffing.) Lower Body Dressing (QC): 3 (Pt donned/doffed underwear and pants. Pt able to doff independently, required assistance with threading RLE into pants/underwear. SBA in stand for pant hike.) On/Off Footwear (QC): 3 (Pt doffed bilateral socks, donned shoes. Required assistance donning LLE shoe.) Toileting Hygiene (QC): 6 Toilet Transfer (QC): 6 Assessment/Plan Assessment and Plan Assess & Plan/Chief Complaint Assessment: Lumbar radiculopathy s/p surgery POD # 5 ZOHREH on CPAP with 3L/min O2 bleeding into machine Obesity DM HTN DM HLP OAB RLS Anxiety Plan: Monitor pain IRF protocol Accuchecks Home meds 04/13/20: Pain control Ambulate with PT Fall risk 04/14/20: Constipation resolved Monitor closely Pain control 04/15/20: BM regimen Pain control DC this week (1) Lumbar radiculopathy (2) Diabetes (3) Essential (primary) hypertension (4) Pure hypercholesterolemia, unspecified (5) ZOHREH on CPAP (6) Nocturnal hypoxia (7) Obesity (8) Overactive bladder KAYLEEN BURCIAGA DO Apr 15, 2020 06:14
[2020-04-15] MEDS: ADVAIR HFA 115/21 MCG INHALER 8 GM IH SCH ×2 (07:45→20:12)
[2020-04-15] MEDS: amLODIPine 5 MG (NORVASC) TAB PO SCH (08:10)
[2020-04-15] MEDS: meTOprolol TARTRATE 50 MG (LOPRESSOR) TAB PO SCH ×2 (08:10→20:55)
[2020-04-15] MEDS: glipiZIDE 5 MG (GLUCOTROL) TAB PO SCH ×2 (08:10→17:39)
[2020-04-15] MEDS: LOSARTAN 50 MG (COZAAR) TAB PO SCH ×2 (08:10→20:54)
[2020-04-15] MEDS: buPROPion SR 150 MG (WELLBUTRIN SR) TAB PO SCH (08:11)
[2020-04-15] MEDS: SENNA W/DOCUSATE (SENOKOT S) TABLET PO SCH ×2 (08:11→20:55)
[2020-04-15] MEDS: PREGABALIN 75 MG (LYRICA) CAP PO SCH ×2 (08:11→20:55)
[2020-04-15] MEDS: PRAMIPEXOLE 0.5 MG TAB (MIRAPEX) PO SCH ×2 (08:11→20:54)
[2020-04-15] MEDS: DOCUSATE SODIUM 10 MG/ML 10 ML UDC (COLACE) PO SCH ×2 (08:11→20:54)
[2020-04-15] MEDS: ASPIRIN E.C. 81 MG (ECOTRIN) TAB PO SCH (08:14)
[2020-04-15] MEDS: polyethylene glycoL POWDER 17 GM (MIRALAX) PACK PO SCH ×2 (10:55→21:03)
[2020-04-15 17:12] VITALS: BP 102/59
[2020-04-15] MEDS: LACTULOSE SYRUP 10GM/15ML (ENULOSE) 30ML UDC PO PRN (18:25)
--- NOTE | 2020-04-15 19:07 | NUR ---
Bedside report received from KAITLYN LAGUERRE, assume care of pt
[2020-04-15 20:50] VITALS: BP 122/63
[2020-04-15] MEDS: traZODone 100 MG (DESYREL) TAB PO SCH (20:54)
--- NOTE | 2020-04-15 20:57 | NUR ---
c/o constipation but refused miralax states IT DOES NOT WORK FOR ME, took COLACE 250mg & Senokot, advised could give fleets enema if she wants, advised to let this nurse know if wants fleets enema, c/o back pain level 6/10 on numeric scale, OXYIR 5mg given
--- NOTE | 2020-04-15 22:20 | NUR ---
rates pain level 3/10 on numeric scale
[2020-04-16] MEDS: BISACODYL 10 MG SUPP (DULCOLAX) PR PRN (02:07)
[2020-04-16 05:29] VITALS: BP 100/51
[2020-04-16 05:56] LABS: BASOPHILS % (AUTO) 1 % (0-10); EOSINOPHILS # (AUTO) 0.3 10^3/uL (0.0-0.3); EOSINOPHILS % (AUTO) 4 % (0-10); HEMATOCRIT 35 % (35-52); HEMOGLOBIN 11.2 g/dL (11.5-16.0); LYMPHOCYTES # (AUTO) 2.1 10^3/uL (1.0-4.0); LYMPHOCYTES % (AUTO) 33 % (12-44); MEAN CORPUSCULAR HEMOGLOBIN 29 pg (25-34); MEAN CORPUSCULAR HGB CONC 32 g/dL (32-36); MEAN CORPUSCULAR VOLUME 92 fL (80-99); MEAN PLATELET VOLUME 11.2 fL (9.0-12.2); MONOCYTES # (AUTO) 0.6 10^3/uL (0.0-1.0); MONOCYTES % (AUTO) 10 % (0-12); NEUTROPHILS # (AUTO) 3.2 10^3/uL (1.8-7.8); NEUTROPHILS % (AUTO) 50 % (42-75); PLATELET COUNT 195 10^3/uL (130-400); WHITE BLOOD COUNT 6.4 10^3/uL (4.3-11.0)
[2020-04-16] MEDS: TROSPIUM 20 MG (SANCTURA) TAB PO SCH ×2 (06:00→17:02)
[2020-04-16] MEDS: VITAMIN D3 25 MCG (1,000 UNITS) TABLET PO SCH (06:00)
[2020-04-16] MEDS: MULTIVIT W/MINERALS TAB (THERAGRAN M) PO SCH (06:01)
[2020-04-16 06:18] LABS: ALBUMIN 3.5 GM/DL (3.2-4.5); POTASSIUM 4.3 MMOL/L (3.6-5.0)
[2020-04-16 06:19] LABS: CALCIUM 9.3 MG/DL (8.5-10.1)
[2020-04-16 06:22] LABS: BILIRUBIN,TOTAL 0.4 MG/DL (0.1-1.0)
[2020-04-16 06:24] LABS: CREATININE SERUM 0.98 MG/DL (0.60-1.30)
[2020-04-16 08:00] VITALS: BP 114/71
[2020-04-16] MEDS: ASPIRIN E.C. 81 MG (ECOTRIN) TAB PO SCH (08:48)
[2020-04-16] MEDS: amLODIPine 5 MG (NORVASC) TAB PO SCH (08:49)
[2020-04-16] MEDS: PRAMIPEXOLE 0.5 MG TAB (MIRAPEX) PO SCH ×2 (08:49→21:03)
[2020-04-16] MEDS: PREGABALIN 75 MG (LYRICA) CAP PO SCH ×2 (08:49→21:04)
[2020-04-16] MEDS: buPROPion SR 150 MG (WELLBUTRIN SR) TAB PO SCH (08:49)
[2020-04-16] MEDS: glipiZIDE 5 MG (GLUCOTROL) TAB PO SCH ×2 (08:49→17:02)
[2020-04-16] MEDS: LOSARTAN 50 MG (COZAAR) TAB PO SCH ×2 (08:49→21:03)
[2020-04-16] MEDS: meTOprolol TARTRATE 50 MG (LOPRESSOR) TAB PO SCH ×2 (08:50→21:03)
[2020-04-16] MEDS: polyethylene glycoL POWDER 17 GM (MIRALAX) PACK PO SCH ×2 (08:54→21:09)
[2020-04-16] MEDS: SENNA W/DOCUSATE (SENOKOT S) TABLET PO SCH ×2 (08:54→21:09)
[2020-04-16] MEDS: DOCUSATE SODIUM 10 MG/ML 10 ML UDC (COLACE) PO SCH ×2 (08:54→21:03)
--- NOTE | 2020-04-16 09:04 | PM&R Progress Note ---
Subjective HPI/CC On Admission Date Seen by Provider: Apr 16, 2020 Time Seen by Provider: 09:00 Subjective/Events-last exam 04/16/20: Labs are doing well Bowels are moving Discharge planning in place Pain is tolerated 04/15/20: Patient improved dramatically Back pain improved BM+ 04/14/20: Patient finally had large bowel evacuation No pain reported other than her lower back No falls Improved dramatically since admit Patient settling in well No changes in status Pain is well controlled No falls BM regimen to continue until post op constipation is resolved Checked meds and labs Conferred with RN Reviewed therapy notes Review of Systems General: Fatigue, Malaise Musculoskeletal: back pain Objective Exam Vital Signs Vital Signs Date Time Temp Pulse Resp B/P (MAP) Pulse Ox O2 Delivery O2 Flow Rate FiO2 04/16/20 21:08 94 Room Air 04/16/20 21:00 88 18 134/58 (83) 04/16/20 18:00 36.0 04/15/20 20:12 3.00 Capillary Refill : Less Than 3 Seconds General Appearance: No Apparent Distress, WD/WN, Chronically ill, Obese HEENT: PERRL/EOMI, Normal ENT Inspection, Pharynx Normal Neck: Full Range of Motion, Normal Inspection, Non Tender, Supple, Carotid Bruit Respiratory: Chest Non Tender, Lungs Clear, Normal Breath Sounds, No Accessory Muscle Use, No Respiratory Distress Cardiovascular: Regular Rate, Rhythm, No Edema, No Gallop, No JVD, No Murmur, Normal Peripheral Pulses Gastrointestinal: Normal Bowel Sounds, No Organomegaly, No Pulsatile Mass, Non Tender, Soft Back: Normal Inspection, No CVA Tenderness, Decreased Range of Motion, Muscle Spasm, Vertebral Tenderness Extremity: Normal Capillary Refill, Normal Inspection, Normal Range of Motion, Non Tender, No Calf Tenderness, No Pedal Edema Neurologic/Psychiatric: Alert, Oriented x3, No Motor/Sensory Deficits, Normal Mood/Affect, mask design 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 FIM Transfers Therapy Code Descriptions/Definitions Functional [place] Measure: 0=Not Assessed/NA 4=Minimal Assistance 1=Total Assistance 5=Supervision or Setup 2=Maximal Assistance 6=Modified [place] 3=Moderate Assistance 7=Complete IndependenceSCALE: Activities may be completed with or without assistive devices. 1-Zdeccwnpwz-sejooda completes the activity by him/herself with no assistance from a helper. 5-Set-up or Clean-up Assistance-helper sets up or cleans up; patient completes activity. [place] assists only prior to or following the activity. 4-Supervision or Touching Assistance-helper provides verbal cues and/or touching/steadying and/or contact guard assistance as patient completes activity. Assistance may be provided throughout the activity or intermittently. 3-Partial/Moderate Assistance-helper does LESS THAN HALF the effort. [place] lifts, holds or supports trunk or limbs, but provides less than half the effort. 2-Substantial/Maximal Assistance-helper does MORE THAN HALF the effort. [place] lifts or holds trunk or limbs and provides more than half the effort. 6-Bkwhyutnn-ktmqqq does ALL the effort. Patient does none of the effort to complete the activity. Or, the assistance of 2 or more helpers is required for the patient to complete the activity. If activity was not attempted, code reason: 7-Patient Refused. 9-Not Applicable-not attempted and the patient did not perform the activity before the current illness, exacerbation or injury. 10-Not Attempted due to Environmental Limitations-(lack of equipment, weather restraints, etc.). 88-Not Attempted due to Medical Conditions or Safety Concerns. Roll Left to Right (QC): 6 Sit to Lying (QC): 6 Sit to Stand (QC): 6 Chair/Loj-ly-Kbpiw Xfer(QC): 6 Car Transfer (QC): 3 Gait Training Does the Patient Walk?: Yes Walk 10 feet (QC): 6 Walk 50 ft with 2 Turns(QC): 6 Walk 150 ft (QC): 6 Walking 10ft/uneven surface-QC: 4 Gait Persons Needed: 0 Gait Assistive Device: FWW Wheelchair Training Does the Pt Use a Wheelchair?: No Wheel 50 ft with 2 turns (QC): 9 Wheel 150 ft (QC): 9 Stair Training Stair Training: Handrails/: 2 handrails #of Steps: 4 1 Step (curb) (QC): 4 4 Steps (QC): 6 12 Steps (QC): 88 Balance Picking up an Object (QC): 88 ADL-Treatment Eating (QC): 6 (Per pt report, she is able to use utensils, cut food, open containers and bring food to mouth) Oral Hygiene (QC): 6 (IND standing at sink.) Shower/Bathe Self (QC): 3 (Assist to wash BLE lower legs/feet.) Upper Body Dressing (QC): 4 (Pt able to doff/don pulley man shirt, SBA with brace for cues of placing straps on brace with doffing.) Lower Body Dressing (QC): 3 (Pt donned/doffed underwear and pants. Pt able to doff independently, required assistance with threading RLE into pants/underwear. SBA in stand for pant hike.) On/Off Footwear (QC): 3 (Pt doffed bilateral socks, donned shoes. Required assistance donning LLE shoe.) Toileting Hygiene (QC): 6 Toilet Transfer (QC): 6 Assessment/Plan Assessment and Plan Assess & Plan/Chief Complaint Assessment: Lumbar radiculopathy s/p surgery POD # 5 ZOHREH on CPAP with 3L/min O2 bleeding into machine Obesity DM HTN DM HLP OAB RLS Anxiety Plan: Monitor pain IRF protocol Accuchecks Home meds 04/13/20: Pain control Ambulate with PT Fall risk 04/14/20: Constipation resolved Monitor closely Pain control 04/15/20: BM regimen Pain control DC this week 04/16/20: DC tomorrow (1) Lumbar radiculopathy (2) Diabetes (3) Essential (primary) hypertension (4) Pure hypercholesterolemia, unspecified (5) ZOHREH on CPAP (6) Nocturnal hypoxia (7) Obesity (8) Overactive bladder KAYLEEN BURCIAGA DO Apr 16, 2020 09:03
--- NOTE | 2020-04-16 09:36 | Physical Therapy Daily Note ---
PT Daily Note-Current Subjective Pt working with OT upon arrival. Pt agrees to short co-treat with OT before individual PT tx. Pain Numeric Pain Scale: 5-Moderate Pain Location: Left Location Body Site: Thigh Pain Description: Sharp Comment: Pain L LE & Numbness in R LE. Mental Status Patient Orientation: Person, Place, Time, Situation Attachments: Other-See Comments (Lumbar Back Brace) Transfers SCALE: Activities may be completed with or without assistive devices. 5-Otjdntjocq-htjefzm completes the activity by him/herself with no assistance from a helper. 5-Set-up or Clean-up Assistance-helper sets up or cleans up; patient completes activity. [place] assists only prior to or following the activity. 4-Supervision or Touching Assistance-helper provides verbal cues and/or touching/steadying and/or contact guard assistance as patient completes activity. Assistance may be provided throughout the activity or intermittently. 3-Partial/Moderate Assistance-helper does LESS THAN HALF the effort. [place] lifts, holds or supports trunk or limbs, but provides less than half the effort. 2-Substantial/Maximal Assistance-helper does MORE THAN HALF the effort. [place] lifts or holds trunk or limbs and provides more than half the effort. 8-Xvbjvtqri-girhmo does ALL the effort. Patient does none of the effort to complete the activity. Or, the assistance of 2 or more helpers is required for the patient to complete the activity. If activity was not attempted, code reason: 7-Patient Refused. 9-Not Applicable-not attempted and the patient did not perform the activity before the current illness, exacerbation or injury. 10-Not Attempted due to Environmental Limitations-(lack of equipment, weather restraints, etc.). 88-Not Attempted due to Medical Conditions or Safety Concerns. Sit to Stand (QC): 6 Chair/Era-qw-Utogh Xfer(QC): 6 Toilet Transfer (QC): 6 Car Transfer (QC): 6 Weight Bearing Right Lower Extremity: Right Full Weight Bearing Left Lower Extremity: Left Full Weight Bearing Gait Training Does the Patient Walk?: Yes Distance: 450', 150' Walk 10 feet (QC): 5 Walk 50 ft with 2 Turns(QC): 5 Walk 150 ft (QC): 5 Gait Persons Needed: 1 Gait Assistive Device: None Attempted [facility] and pt amb. well, asking if she could try w/o AD. Pt amb. w/o AD with SBA. Wheelchair Training Does the Pt Use a Wheelchair?: No Stair Training Stair Training: Handrails/: 1 handrail #of Steps: 12 1 Step (curb) (QC): 6 4 Steps (QC): 6 12 Steps (QC): 6 Stairs: Pattern: Reciprocal Balance Picking up an Object (QC): 6 Special Test Comments Tested with leadership program associate due to Back Precautions. Treatments Pt completes QC scoring items listed above and will finish in afternoon tx. Pt returns to room at end of tx to rest in recliner. All needs met, call light in hand. Assessment Current Status: Good Progress Pt kerline. tx well. PT Short Term Goals Short Term Goals Time Frame: Apr 19, 2020 Roll Left & Right: 6 Sit to lyin Lying to sitting on side of be: 6 Sit to stand: 5 Chair/lhx-mw-qrgxg transfer: 5 Car transfer: 4 Walk 10 feet: 5 Walk 50 feet with two turns: 5 Walk 150 feet: 5 1 step (curb): 4 4 steps: 4 PT Senior Care Goals Senior Care Goals PT Fibre [employer]ic Cable Splicer Goals Time Frame: Apr 26, 2020 Roll Left & Right (QC): 6 Sit to Lying (QC): 6 Lying-Sitting on Side/Bed(QC): 6 Sit to Stand (QC): 6 Chair/Fec-pa-Jyyyq Xfer(QC): 6 Toilet Transfer (QC): 6 Car Transfer (QC): 6 Does the Patient Walk: Yes Walk 10 feet (QC): 6 Walk 50ft with 2 Turns (QC): 6 Walk 150 ft (QC): 6 Walking 10ft on Uneven Surface: 6 1 Step (curb) (QC): 6 4 Steps (QC): 6 12 Steps (QC): 6 Picking up an Object (QC): 88 Wheel 50 feet with 2 turns (QC: 9 Wheel 150 feet: 9 PT Plan Treatment/Plan Treatment Plan: Continue Plan of Care Treatment Plan: Bed Mobility, Education, Functional Activity [place], Functional Strength, Group Therapy, Gait, Safety, Therapeutic Exercise, Transfers Treatment Duration: Apr 26, 2020 Frequency: At least 5 of 7 days/Wk (IRF) Estimated Hrs Per Day: 1.5 hours per day Patient and/or Family Agrees t: Yes Safety Risks/Education Patient Education: Gait Training, Steps, Correct Positioning, Safety Issues Teaching Recipient: Patient Teaching Methods: Discussion Response to Teaching: Verbalize Understanding Time/GCodes Time In: 845 Time Out: 930 Total Billed Treatment Time: 45 Total Billed Treatment 1, GT (20m) & FA x2 (25m) JAMES GARCIA SPRAY DYER Apr 16, 2020 09:36
--- NOTE | 2020-04-16 10:17 | Occupational Ther Daily Note ---
OT Current Status-Daily Note Subjective Pt laying in bed, agreeable to OT Tx, reports 8/10 pain in LLE. Mental Status/Objective Patient Orientation: Person, Place, Time, Situation ADL-Treatment Therapy Code Descriptions/Definitions Functional [place] Measure: 0=Not Assessed/NA 4=Minimal Assistance 1=Total Assistance 5=Supervision or Setup 2=Maximal Assistance 6=Modified [place] 3=Moderate Assistance 7=Complete IndependenceSCALE: Activities may be completed with or without assistive devices. 5-Sbfokqgobj-nbvpxec completes the activity by him/herself with no assistance from a helper. 5-Set-up or Clean-up Assistance-helper sets up or cleans up; patient completes activity. [place] assists only prior to or following the activity. 4-Supervision or Touching Assistance-helper provides verbal cues and/or touching/steadying and/or contact guard assistance as patient completes activity. Assistance may be provided throughout the activity or intermittently. 3-Partial/Moderate Assistance-helper does LESS THAN HALF the effort. [place] lifts, holds or supports trunk or limbs, but provides less than half the effort. 2-Substantial/Maximal Assistance-helper does MORE THAN HALF the effort. [place] lifts or holds trunk or limbs and provides more than half the effort. 2-Sxxrpmdxz-lrrxfg does ALL the effort. Patient does none of the effort to complete the activity. Or, the assistance of 2 or more helpers is required for the patient to complete the activity. If activity was not attempted, code reason: 7-Patient Refused. 9-Not Applicable-not attempted and the patient did not perform the activity before the current illness, exacerbation or injury. 10-Not Attempted due to Environmental Limitations-(lack of equipment, weather restraints, etc.). 88-Not Attempted due to Medical Conditions or Safety Concerns. Shower/Bathe Self (QC): 4 (OT educated pt on using long handled sponge to wash LEs, and adaptive techniques for drying LEs. Pt able to wash/dry all parts.) Upper Body Dressing (QC): 6 (Pt able to don/doff back brace independently, gathered clothing from closet.) Lower Body Dressing (QC): 4 (Pt able to doff/don lower body clothing with supervision, pt used AE) On/Off Footwear: 3 (pt able to doff socks using dental service technician. Mod A donning shoes.) Toileting Hygiene (QC): 6 (Pt indpendent with hygiene and clothing management) Toilet Transfer (QC): 6 (independent transfer on/off toilet.) Other Treatment [id number]: Pt laying in bed, donned back brace then gathered clothing items from around room using FWW. Pt transferred to AL where she completed showering and dressing. Pt then completed toileting and transferred to recliner. Throughout tx, OT educated pt on AE for lower body dressing, washing/drying lower body, and toilet tongs to increase pt's independence with ADLs. Pt demo'd understanding. [id number]: OT/PT cotreat due to skill of 2 clinicians required that a clinical rehab specialist could not perform in order to focus on dynamic standing balance, functional endurance and strength. OT focused on UE placement and cues for sequencing and safety while PT focused on LE placement, gross overall movements and dynamic standing balance. Pt used FWW to ambulate to therapy gym. In order to increase dynamic standing balance, pt stood with PT and bounced ball back and forth with OT. Pt initially returned hands to walker between each toss, but with encour agement was able to maintain balance without returning hands to walker. Pt completed task ~3 mins. Post OT/PT cotreat, pt seated in chair in gym with PT to continue tx. Education OT Patient Education: Correct positioning, Modified ADL techniques, Progress toward Goal/Update tx plan, Purpose of tx/functional activities Teaching Recipient: Patient Teaching Methods: Discussion Response to Teaching: Verbalize Understanding OT Chcf Goals Chcf Goals Time Frame: Apr 27, 2020 Eating (QC): 6 Oral Hygiene (QC): 6 Toileting Hygiene (QC): 6 Shower/Bathe Self (QC): 6 Upper Body Dressing (QC): 6 Lower Body Dressing (QC): 6 On/Off Footwear (QC): 6 Additional Goals: 1-Demonstrate ADL Tasks, 2-Verbalize Understanding, 3- ImproveStrength/[place] 1=Demonstrate adherence to instructed precautions during ADL tasks. 2=Patient will verbalize/demonstrate understanding of assistive devices/modifications for ADL. 3=Patient will improve strength/tolerance for activity to enable patient to perform ADL's. OT Education/Plan Problem List/Assessment Assessment: Decreased Activ Tolerance, Decreased UE Strength, Impaired Funct Balance, Impaired I ADL's, Impaired Self-Care Skills Discharge Recommendations Plan/Recommendations: Continue POC Treatment Plan/Plan of Care Patient would benefit from OT for education, treatment and training to promote independence in ADL's, mobility, safety and/or upper extremity function for ADL's. Plan of Care: ADL Retraining, Functional Mobility, Group Exercise/Act as Ind, UE Funct Exercise/Act Treatment Duration: Apr 27, 2020 Frequency: At least 5 of 7 days/Wk (IRF) Estimated Hrs Per Day: 1.5 hours per day Agreement: Yes Rehab Potential: Good Time/GCodes Start Time: 08:00 Stop Time: 09:00 Total Time Billed (hr/min): 60 Billed Treatment Time 5062-0452 OT tx, [id number] OT/PT cotreat 1, ADL 3 (45'), FA (15') ADDY RAZA OT Apr 16, 2020 10:17
[2020-04-16] MEDS: ADVAIR HFA 115/21 MCG INHALER 8 GM IH SCH ×2 (11:28→18:42)
--- NOTE | 2020-04-16 13:47 | Occupational Ther Daily Note ---
OT Current Status-Daily Note Subjective Pt seated in recliner, agreeable to therapy. States she feels like she is ready to discharge. Mental Status/Objective Patient Orientation: Person, Place, Time, Situation ADL-Treatment Therapy Code Descriptions/Definitions Functional [place] Measure: 0=Not Assessed/NA 4=Minimal Assistance 1=Total Assistance 5=Supervision or Setup 2=Maximal Assistance 6=Modified [place] 3=Moderate Assistance 7=Complete IndependenceSCALE: Activities may be completed with or without assistive devices. 1-Edhaqfofmd-rsirjof completes the activity by him/herself with no assistance from a helper. 5-Set-up or Clean-up Assistance-helper sets up or cleans up; patient completes activity. [place] assists only prior to or following the activity. 4-Supervision or Touching Assistance-helper provides verbal cues and/or touching/steadying and/or contact guard assistance as patient completes activity. Assistance may be provided throughout the activity or intermittently. 3-Partial/Moderate Assistance-helper does LESS THAN HALF the effort. [place] lifts, holds or supports trunk or limbs, but provides less than half the effort. 2-Substantial/Maximal Assistance-helper does MORE THAN HALF the effort. [place] lifts or holds trunk or limbs and provides more than half the effort. 4-Lrpewniop-zbyuqo does ALL the effort. Patient does none of the effort to complete the activity. Or, the assistance of 2 or more helpers is required for the patient to complete the activity. If activity was not attempted, code reason: 7-Patient Refused. 9-Not Applicable-not attempted and the patient did not perform the activity before the current illness, exacerbation or injury. 10-Not Attempted due to Environmental Limitations-(lack of equipment, weather restraints, etc.). 88-Not Attempted due to Medical Conditions or Safety Concerns. Eating (QC): 6 (Pt independent eating lunch per pt report.) Oral Hygiene (QC): 6 (Pt independent standing at sink.) On/Off Footwear: 6 (OT educated pt on AE for footwear. Pt able to cross legs in figure 4 method to don/doff shoes and socks.) Other Treatment Pt seated in recliner, OT educated pt on AE for footwear, pt demo's and verbalizes understanding. OT and pt discuss AE/DME recommendations to return home, pt indicates she has a built in chair in her shower, she owns a tooth cutter spur, and she has a long handled shoe horn. OT educates pt on safety aspects of returning home and kitchen, including reviewing precautions and advising pt to keep most used items at counter level. Pt verbalizes understanding. Pt states she has no concerns with returning home, states she has all AE/DME needed and she feels like she is ready. Post OT tx, pt seated in recliner, call light in reach and all needs met. Education OT Patient Education: Correct positioning, Modified ADL techniques, Progress toward Goal/Update tx plan, Purpose of tx/functional activities Teaching Recipient: Patient Teaching Methods: Discussion Response to Teaching: Verbalize Understanding OT Shelter Goals Churn Driller Goals Time Frame: Apr 27, 2020 Eating (QC): 6 Oral Hygiene (QC): 6 Toileting Hygiene (QC): 6 Shower/Bathe Self (QC): 6 Upper Body Dressing (QC): 6 Lower Body Dressing (QC): 6 On/Off Footwear (QC): 6 Additional Goals: 1-Demonstrate ADL Tasks, 2-Verbalize Understanding, 3- ImproveStrength/Jameson 1=Demonstrate adherence to instructed precautions during ADL tasks. 2=Patient will verbalize/demonstrate understanding of assistive devices/modifications for ADL. 3=Patient will improve strength/tolerance for activity to enable patient to perform ADL's. OT Education/Plan Problem List/Assessment Assessment: Decreased Activ Tolerance, Decreased UE Strength, Impaired I ADL's Discharge Recommendations Plan/Recommendations: Continue POC Treatment Plan/Plan of Care Patient would benefit from OT for education, treatment and training to promote independence in ADL's, mobility, safety and/or upper extremity function for ADL's. Plan of Care: ADL Retraining, Functional Mobility, Group Exercise/Act as Ind, UE Funct Exercise/Act Treatment Duration: Apr 27, 2020 Frequency: At least 5 of 7 days/Wk (IRF) Estimated Hrs Per Day: 1.5 hours per day Agreement: Yes Rehab Potential: Good Time/GCodes Start Time: 13:00 Stop Time: 13:30 Total Time Billed (hr/min): 30 Billed Treatment Time 1, ADL 2 ADDY RAZA OT Apr 16, 2020 13:47
--- NOTE | 2020-04-16 14:32 | Physical Therapy Daily Note ---
PT Daily Note-Current Subjective Pt sitting in recliner upon arrival. Pt agrees to finishing QC scoring items from morning tx. Pain Location: No Pain Reported Mental Status Patient Orientation: Person, Place, Time, Situation Attachments: Other-See Comments (Lumbar Back Brace) Transfers SCALE: Activities may be completed with or without assistive devices. 4-Yuslvyavve-vjrdcsh completes the activity by him/herself with no assistance from a helper. 5-Set-up or Clean-up Assistance-helper sets up or cleans up; patient completes activity. [place] assists only prior to or following the activity. 4-Supervision or Touching Assistance-helper provides verbal cues and/or touching/steadying and/or contact guard assistance as patient completes activity. Assistance may be provided throughout the activity or intermittently. 3-Partial/Moderate Assistance-helper does LESS THAN HALF the effort. [place] lifts, holds or supports trunk or limbs, but provides less than half the effort. 2-Substantial/Maximal Assistance-helper does MORE THAN HALF the effort. [place] lifts or holds trunk or limbs and provides more than half the effort. 9-Hewgilgih-pfvykh does ALL the effort. Patient does none of the effort to complete the activity. Or, the assistance of 2 or more helpers is required for the patient to complete the activity. If activity was not attempted, code reason: 7-Patient Refused. 9-Not Applicable-not attempted and the patient did not perform the activity before the current illness, exacerbation or injury. 10-Not Attempted due to Environmental Limitations-(lack of equipment, weather restraints, etc.). 88-Not Attempted due to Medical Conditions or Safety Concerns. Roll Left & Right (QC): 6 Sit to Lying (QC): 6 Lying to Sitting/Side of Bed(Q: 6 Sit to Stand (QC): 6 Weight Bearing Right Lower Extremity: Right Full Weight Bearing Left Lower Extremity: Left Full Weight Bearing Gait Training Does the Patient Walk?: Yes Distance: 150' x2 Walk 10 feet (QC): 6 Walk 50 ft with 2 Turns(QC): 6 Walk 150 ft (QC): 6 Walking 10ft/uneven surface-QC: 6 Gait Persons Needed: 1 Gait Assistive Device: None Wheelchair Training Does the Pt Use a Wheelchair?: No Treatments Pt completes QC scoring items not finished in morning tx. Pt returns to room at end of tx with all needs met, call light in hand. Assessment Current Status: Excellent Progress Pt kerline. tx well and excited for DC. PT Short Term Goals Short Term Goals Time Frame: Apr 19, 2020 Roll Left & Right: 6 Sit to lyin Lying to sitting on side of be: 6 Sit to stand: 5 Chair/lit-os-etcnf transfer: 5 Car transfer: 4 Walk 10 feet: 5 Walk 50 feet with two turns: 5 Walk 150 feet: 5 1 step (curb): 4 4 steps: 4 PT Mcfp Goals Director Of Payroll Goals PT Mcfp Goals Time Frame: Apr 26, 2020 Roll Left & Right (QC): 6 Sit to Lying (QC): 6 Lying-Sitting on Side/Bed(QC): 6 Sit to Stand (QC): 6 Chair/Ank-nf-Oqhgr Xfer(QC): 6 Toilet Transfer (QC): 6 Car Transfer (QC): 6 Does the Patient Walk: Yes Walk 10 feet (QC): 6 Walk 50ft with 2 Turns (QC): 6 Walk 150 ft (QC): 6 Walking 10ft on Uneven Surface: 6 1 Step (curb) (QC): 6 4 Steps (QC): 6 12 Steps (QC): 6 Picking up an Object (QC): 88 Wheel 50 feet with 2 turns (QC: 9 Wheel 150 feet: 9 PT Plan Treatment/Plan Treatment Plan: Continue Plan of Care Treatment Plan: Bed Mobility, Education, Functional Activity [place], Functional Strength, Group Therapy, Gait, Safety, Therapeutic Exercise, Transfers Treatment Duration: Apr 26, 2020 Frequency: At least 5 of 7 days/Wk (IRF) Estimated Hrs Per Day: 1.5 hours per day Patient and/or Family Agrees t: Yes Safety Risks/Education Patient Education: Issued Written HEP Teaching Recipient: Patient Teaching Methods: Discussion Response to Teaching: Verbalize Understanding Time/GCodes Time In: 1330 Time Out: 1415 Total Billed Treatment Time: 45 Total Billed Treatment 1, FA x2 (25m) & GT (20m) JAMES GARCIA SHIPPER RECEIVER Apr 16, 2020 14:32
[2020-04-16] MEDS ORDERED: ACET-2267 PO (15:26)
--- NOTE | 2020-04-16 16:07 | NUR ---
CM/SS DISCHARGE PLANNING Physician and team members agree that patient can discharge home tomorrow as she has requested. Patient is wearing back brace and ambulating independently without any assistive devices. She does not qualify for homebound status and does not need therapy. Patient has coordinated her transport home with her daughter Catalina, likely around 1000. Updated communication board. IMM2 signed and charted.
[2020-04-16 18:00] VITALS: BP 115/56
--- NOTE | 2020-04-16 19:14 | NUR ---
Bedside report received from DUONG LAGUERRE, assume care of pt
[2020-04-16 21:00] VITALS: BP 134/58
[2020-04-16] MEDS: traZODone 100 MG (DESYREL) TAB PO SCH (21:03)
--- NOTE | 2020-04-16 21:04 | NUR ---
Pt took Colace refused miralax & Senokot,, c/o back pain level 5/10 on numeric scale OXYIR 5mg given
--- NOTE | 2020-04-16 21:45 | NUR ---
resting quietly in bed, pain level 0/10 on CNPI SCALE
[2020-04-17] MEDS ORDERED: ASPI-1238 PO (05:34)
[2020-04-17] MEDS ORDERED: OXC5T PO (05:34)
[2020-04-17] MEDS ORDERED: SENN-20 PO (05:34)
--- NOTE | 2020-04-17 05:34 | NUR ---
c/o back pain level 4/10 on numeric scale, oxyir 5mg given
[2020-04-17] MEDS: TROSPIUM 20 MG (SANCTURA) TAB PO SCH (05:35)
--- NOTE | 2020-04-17 05:35 | Discharge Summary ---
Diagnosis/Chief Complaint Date of Admission Apr 12, 2020 at 09:50 Date of Discharge Discharge Date: Apr 17, 2020 Discharge Diagnosis Assessment: Lumbar radiculopathy s/p surgery POD # 6 ZOHREH on CPAP with 3L/min O2 bleeding into machine Obesity DM HTN DM HLP OAB RLS Anxiety Plan: Monitor pain IRF protocol Accuchecks Home meds 04/13/20: Pain control Ambulate with PT Fall risk 04/14/20: Constipation resolved Monitor closely Pain control 04/15/20: BM regimen Pain control DC this week 04/16/20: DC tomorrow (1) Lumbar radiculopathy (2) Diabetes (3) Essential (primary) hypertension (4) Pure hypercholesterolemia, unspecified (5) ZOHREH on CPAP (6) Nocturnal hypoxia (7) Obesity (8) Overactive bladder Discharge Summary Discharge Physical Examination Allergies: Coded Allergies: phenazopyridine (Verified Allergy, Unknown, 09/10/15) levofloxacin (Verified Adverse Reaction, Mild, N/V, 07/27/15) Vitals & I&Os Vital Signs Date Time Temp Pulse Resp B/P (MAP) Pulse Ox O2 Delivery O2 Flow Rate FiO2 04/17/20 10:05 36.6 77 18 116/56 91 Room Air 04/15/20 20:12 3.00 General Appearance: Alert, Oriented X3, Cooperative Respiratory: Clear to Auscultation Cardiovascular: Regular Rate Neuro: Normal Gait, Normal Speech, Strength at 5/5 X4 Ext Psych/Mental Status: Mental Status NL Hospital Course Was the Problem List Reviewed?: Yes Hospital course: Pt had an uneventful short hospital course in inpatient rehab for six days after she was admitted for lumbar spine surgery with slow recovery. She was able to participate in all therapy, labs remain stable, post-op constipation resolved with multiple laxatives and pain was well controlled on Oxycodone. Overall she did very well, no decompensation occurred and she was ready for discharge with no home care needs. Labs (last 24 hrs) Laboratory Tests 04/13/20 05:25: White Blood Count 7.7, Red Blood Count 4.20, Hemoglobin 12.3, Hematocrit 39, Mean Corpuscular Volume 93, Mean Corpuscular Hemoglobin 29, Mean Corpuscular Hemoglobin Concent 32, Red Cell Distribution Width 14.7H, Platelet Count 180, Mean Platelet Volume 11.0, Immature Granulocyte % (Auto) 1, Neutrophils (%) (Auto) 54, Lymphocytes (%) (Auto) 32, Monocytes (%) (Auto) 10, Eosinophils (%) (Auto) 2, Basophils (%) (Auto) 1, Neutrophils # (Auto) 4.1, Lymphocytes # (Auto) 2.5, Monocytes # (Auto) 0.8, Eosinophils # (Auto) 0.1, Basophils # (Auto) 0.1, Immature Granulocyte # (Auto) 0.1, Sodium Level 140, Potassium Level 4.4, Chloride Level 104, Carbon Dioxide Level 24, Anion Gap 12, Blood Urea Nitrogen 19H, Creatinine 0.92, Estimat Glomerular Filtration Rate 60, BUN/Creatinine Ratio 21, Glucose Level 137H, Calcium Level 9.2, Corrected Calcium 9.3, Total Bilirubin 0.5, Aspartate Amino Transf (AST/SGOT) 25, Alanine Aminotransferase (ALT/SGPT) 21, Alkaline Phosphatase 83, Total Protein 6.5, Albumin 3.9 04/16/20 05:23: White Blood Count 6.4, Red Blood Count 3.81, Hemoglobin 11.2L, Hematocrit 35, Mean Corpuscular Volume 92, Mean Corpuscular Hemoglobin 29, Mean Corpuscular Hemoglobin Concent 32, Red Cell Distribution Width 14.6H, Platelet Count 195, Mean Platelet Volume 11.2, Immature Granulocyte % (Auto) 3, Neutrophils (%) (Auto) 50, Lymphocytes (%) (Auto) 33, Monocytes (%) (Auto) 10, Eosinophils (%) (Auto) 4, Basophils (%) (Auto) 1, Neutrophils # (Auto) 3.2, Lymphocytes # (Auto) 2.1, Monocytes # (Auto) 0.6, Eosinophils # (Auto) 0.3, Basophils # (Auto) 0.0, Immature Granulocyte # (Auto) 0.2H, Sodium Level 140, Potassium Level 4.3, Chloride Level 103, Carbon Dioxide Level 26, Anion Gap 11, Blood Urea Nitrogen 23H, Creatinine 0.98, Estimat Glomerular Filtration Rate 56, BUN/Creatinine Ratio 23, Glucose Level 131H, Calcium Level 9.3, Corrected Calcium 9.7, Total Bilirubin 0.4, Aspartate Amino Transf (AST/SGOT) 23, Alanine Aminotransferase (A LT/SGPT) 25, Alkaline Phosphatase 87, Total Protein 6.0L, Albumin 3.5 Pending Labs Laboratory Tests 04/13/20 05:25: White Blood Count 7.7, Red Blood Count 4.20, Hemoglobin 12.3, Hematocrit 39, Mean Corpuscular Volume 93, Mean Corpuscular Hemoglobin 29, Mean Corpuscular Hemoglobin Concent 32, Red Cell Distribution Width 14.7, Platelet Count 180, Mean Platelet Volume 11.0, Immature Granulocyte % (Auto) 1, Neutrophils (%) (Auto) 54, Lymphocytes (%) (Auto) 32, Monocytes (%) (Auto) 10, Eosinophils (%) (Auto) 2, Basophils (%) (Auto) 1, Neutrophils # (Auto) 4.1, Lymphocytes # (Auto) 2.5, Monocytes # (Auto) 0.8, Eosinophils # (Auto) 0.1, Basophils # (Auto) 0.1, Immature Granulocyte # (Auto) 0.1, Sodium Level 140, Potassium Level 4.4, Chloride Level 104, Carbon Dioxide Level 24, Anion Gap 12, Blood Urea Nitrogen 19, Creatinine 0.92, Estimat Glomerular Filtration Rate 60, BUN/Creatinine Ratio 21, Glucose Level 137, Calcium Level 9.2, Corrected Calcium 9.3, Total Bilirubin 0.5, Aspartate Amino Transf (AST/SGOT) 25, Alanine Aminotransferase (ALT/SGPT) 21, Alkaline Phosphatase 83, Total Protein 6.5, Albumin 3.9 04/16/20 05:23: White Blood Count 6.4, Red Blood Count 3.81, Hemoglobin 11.2, Hematocrit 35, Mean Corpuscular Volume 92, Mean Corpuscular Hemoglobin 29, Mean Corpuscular Hemoglobin Concent 32, Red Cell Distribution Width 14.6, Platelet Count 195, Mean Platelet Volume 11.2, Immature Granulocyte % (Auto) 3, Neutrophils (%) (Auto) 50, Lymphocytes (%) (Auto) 33, Monocytes (%) (Auto) 10, Eosinophils (%) (Auto) 4, Basophils (%) (Auto) 1, Neutrophils # (Auto) 3.2, Lymphocytes # (Auto) 2.1, Monocytes # (Auto) 0.6, Eosinophils # (Auto) 0.3, Basophils # (Auto) 0.0, Immature Granulocyte # (Auto) 0.2, Sodium Level 140, Potassium Level 4.3, Chloride Level 103, Carbon Dioxide Level 26, Anion Gap 11, Blood Urea Nitrogen 23, Creatinine 0.98, Estimat Glomerular Filtration Rate 56, BUN/Creatinine Ratio 23, Glucose Level 131, Calcium Level 9.3, Corrected Calcium 9.7, Total Bilirubin 0.4, Aspartate Amino Transf (AST/SGOT) 23, Alanine Aminotransferase (ALT/SGPT) 25, Alkaline Phosphatase 87, Total Protein 6.0, Albumin 3.5 Discharge Home Medications: Active Scripts Active Senna-Time S Tablet (Sennosides/Docusate Sodium) 1 Each Tablet 1 Ea PO BID Oxyir Tablet (Oxycodone HCl) 5 Mg Tab 5 Mg PO Q4H PRN Aspirin EC (Aspirin) 81 Mg Tablet.dr 81 Mg PO DAILY Reported Tylenol Extra Strength (Acetaminophen) 500 Mg Tablet 500-1,000 Mg PO Q8H PRN Trazodone HCl 100 Mg Tablet 100 Mg PO HS Vesicare (Solifenacin Succinate) 5 Mg Tablet 5 Mg PO DAILY LAST FILLED 07-01-2019 #90/90 DAY SUPPLY Glipizide 5 Mg Tablet 2.5 Mg PO BID WITH MEALS TAKES OF A 5MG TAB Docusate Sodium 250 Mg Capsule 250 Mg PO BID Wellbutrin Xl (Bupropion HCl) 150 Mg Tab.er.24h 150 Mg PO DAILY Symbicort 160-4.5 Mcg Inhaler (Budesonide/Formoterol Fumarate) 10.2 Gm Hfa.aer.ad 2 Puff IH BID Amlodipine Besylate 10 Mg Tablet 5 Mg PO DAILY TAKES OF A 10MG TAB Ventolin Hfa (Albuterol Sulfate) 1 Puff Puff 2 Puff INH Q6H PRN Co-Enzyme Q10 100 mg Softgel (Ubidecarenone/Vit E/Vit E Mix) 1 Each Capsule 1 Each PO DAILY Lyrica (Pregabalin) 75 Mg Capsule 75 Mg PO Q12H Vitamin D3 (Cholecalciferol (Vitamin D3)) 50 Mcg Capsule 50 Mcg PO DAILY Metoprolol Tartrate 100 Mg Tablet 100 Mg PO BID Daily Aj (Multivitamin) 1 Each Tablet 1 Each PO DAILY Mirapex (Pramipexole Di-HCl) 0.5 Mg Tablet 0.5 Mg PO BID Losartan Potassium 50 Mg Tablet 50 Mg PO BID Instructions to patient/family Please see electronic discharge instructions given to patient. Diagnosis/Problems Diagnosis/Problems (1) Lumbar radiculopathy (2) Diabetes (3) Essential (primary) hypertension (4) Pure hypercholesterolemia, unspecified (5) ZOHREH on CPAP (6) Nocturnal hypoxia (7) Obesity (8) Overactive bladder Clinical Quality Measures DVT/VTE Risk/Contraindication: Risk Factor Score Per Nursin RFS Level Per Nursing on Admit: 4+=Very High Contraindications-Pharm: Pt at low risk Other: spinal hematoma KAYLEEN BURCIAGA DO Apr 17, 2020 05:35
[2020-04-17 05:45] VITALS: BP 99/49
--- NOTE | 2020-04-17 06:20 | NUR ---
rates pain at 3/10 on numeric scale
[2020-04-17] MEDS: VITAMIN D3 25 MCG (1,000 UNITS) TABLET PO SCH (06:59)
[2020-04-17] MEDS: MULTIVIT W/MINERALS TAB (THERAGRAN M) PO SCH (06:59)
[2020-04-17] MEDS: PREGABALIN 75 MG (LYRICA) CAP PO SCH (08:00)
[2020-04-17] MEDS: glipiZIDE 5 MG (GLUCOTROL) TAB PO SCH (08:00)
[2020-04-17] MEDS: PRAMIPEXOLE 0.5 MG TAB (MIRAPEX) PO SCH (08:00)
[2020-04-17] MEDS: SENNA W/DOCUSATE (SENOKOT S) TABLET PO SCH (08:01)
[2020-04-17] MEDS: polyethylene glycoL POWDER 17 GM (MIRALAX) PACK PO SCH (08:01)
[2020-04-17] MEDS: ASPIRIN E.C. 81 MG (ECOTRIN) TAB PO SCH (08:01)
[2020-04-17] MEDS: DOCUSATE SODIUM 10 MG/ML 10 ML UDC (COLACE) PO SCH (08:01)
[2020-04-17] MEDS: buPROPion SR 150 MG (WELLBUTRIN SR) TAB PO SCH (08:01)
[2020-04-17 08:03] VITALS: BP 96/58
[2020-04-17] MEDS: ADVAIR HFA 115/21 MCG INHALER 8 GM IH SCH (08:16)
[2020-04-17] MEDS: LOSARTAN 50 MG (COZAAR) TAB PO SCH (09:37)
[2020-04-17] MEDS: meTOprolol TARTRATE 50 MG (LOPRESSOR) TAB PO SCH (09:37)
[2020-04-17] MEDS: amLODIPine 5 MG (NORVASC) TAB PO SCH (09:37)
[2020-04-17 09:41] VITALS: BP 116/56
--- NOTE | 2020-04-17 09:45 | NUR ---
DRESSING CHANGE TO LOWER BACK AND LEFT FLANK INCISIONS. INCISIONS ARE WELL APPROXIMATED WITH STERI STRIPS INTACT. NO DRAINAGE NOTED. PATIENT TO F/U WITH MEG (DR. MONTOYA) ON 04/24/20 AT 10:30 AM AND LATONIA BATISTA (DR. HARMON'S PA) ON 04/23/20 AT 2:15 PM.
[2020-04-17 10:05] VITALS: BP 116/56
--- NOTE | 2020-04-17 11:32 | NUR ---
CM/SS DISCHARGE Patient discharged home as planned. She is packing her personal items in preparation for her daughter's arrival. Unit RN aware of all plans and finalizing discharge. As earlier noted, no HHC or DME needed. Family members are very supportive and will be staying with patient and fixing meals as is necessary.
--- NOTE | 2020-04-17 12:01 | Therapy Team Discharge Summary ---
Therapy Discharge Summary Discharge Recommendations Date of Discharge Occupational Therapy Pt admitted to ARU, s/p L2-3 fusion. At PLOF, pt was independent with all ADLs and functional mobility, without AE/AD. Upon admission to ARU, pt was independent with eating, required SBA for oral care, min A showering, min A u pper body dressing, min A lower body dressing, mod A footwear, and SBA toileting. OT txs focus on increasing safety and independence with ADLs and functional mobility, education on AE in order to maintain back precautions, and BUE strengthening/functional endurance. At discharge, pt was independent with eating and oral care, required supervision with showering, independent upper vinh dy dressing, supervision with lower body dressing, independent with footwear and toileting. Pt made good progress towards goals, meeting independent level with all except for showering and lower body dressing. OT recommends pt to have bath chair, long handled shoe horn, and theology professor, pt indicates she has all of these items at home, no further equipment recommended at this time. Pt is discharging from facility on this date, d/c from OT. Decreased Activ Tolerance, Decreased UE Strength, Impaired I ADL's PT Nursing Specialist Goals Nursing Specialist Goals PT Nursing Specialist Goals Time Frame: Apr 26, 2020 Roll Left to Right (QC): 6 Sit to Lying (QC): 6 Lying-Sitting on Side/Bed(QC): 6 Sit to Stand (QC): 6 Chair/Ydm-mt-Tsjfk Xfer(QC): 6 Car Transfer (QC): 6 Does the Patient Walk: Yes Walk 10 feet (QC): 6 Walk 10ft-Uneven Surface(QC): 6 Walk 50ft with 2 Turns (QC): 6 Walk 150 ft (QC): 6 Wheel 50 feet with 2 turns (QC: 9 1 Step (curb) (QC): 6 4 Steps (QC): 6 12 Steps (QC): 6 Picking up an Object (QC): 88 OT Usp Goals Usp Goals Time Frame: Apr 27, 2020 Eating (QC): 6 (met) Oral Hygiene (QC): 6 (met) Shower/Bathe Self (QC): 6 (not met, supervision) Upper Body Dressing (QC): 6 (met) Lower Body Dressing (QC): 6 (not met, supervision) On/Off Footwear (QC): 6 (met) Toileting Hygiene (QC): 6 (met) Toilet/Commode Transfer (QC): 6 (met) Additional Goals: 1-Demonstrate ADL Tasks, 2-Verbalize Understanding, 3-Imp roveStrength/Jameson 1=Demonstrate adherence to instructed precautions during ADL tasks. 2=Patient will verbalize/demonstrate understanding of assistive devices/modifications for ADL. 3=Patient will improve strength/tolerance for activity to enable patient to perform ADL's. ADDY RAZA OT Apr 17, 2020 12:01
--- NOTE | 2020-04-17 15:04 | Therapy Team Discharge Summary ---
Therapy Discharge Summary Discharge Recommendations Date of Discharge Apr 17, 2020 at 10:00 Physical Therapy Patient came to rehab following a lumbar spine surgery. Upon evaluation patient performed bed mobility and supine <-> sit with SBA, sit <-> stand and transfers with CGA, car transfer min assist, ambulated 150' with a rolling walker with CGA (including 50' with at least 2 turns of 90 degrees and 10' over an uneven surface), and went up and down 1 step using a rolling walker with CGA. Patient has been performing bed mobility and transfer training, balance and endurance training, functional strengthening, stair training, gait training, and education. Patient has made good progress and has met all of her technician terminal and repeater goals. Now, patient performs bed mobility and transfers with independence, car transfer independent, ambulates 150' with a rolling walker with independence (including 50' with at least 2 turns of 90 degrees and 10' over an uneven surface), can milk pickup truck driver an object from the floor (using a suction dredge dumping supervisor) with independence, and can go up and down 12 steps using 1 handrail with independence. Patient has discharged from this facility today and will be discharged from PT at this time. Occupational Therapy Decreased Activ Tolerance, Decreased UE Strength, Impaired I ADL's PT Custodial Goals Information And Data Architect Analyst Goals PT Information And Data Architect Analyst Goals Time Frame: Apr 26, 2020 Roll Left to Right (QC): 6 Sit to Lying (QC): 6 Lying-Sitting on Side/Bed(QC): 6 Sit to Stand (QC): 6 Chair/Yyv-fa-Hdyjk Xfer(QC): 6 Car Transfer (QC): 6 Does the Patient Walk: Yes Walk 10 feet (QC): 6 Walk 10ft-Uneven Surface(QC): 6 Walk 50ft with 2 Turns (QC): 6 Walk 150 ft (QC): 6 Wheel 50 feet with 2 turns (QC: 9 1 Step (curb) (QC): 6 4 Steps (QC): 6 12 Steps (QC): 6 Picking up an Object (QC): 88 OT Information And Data Architect Analyst Goals Information And Data Architect Analyst Goals Time Frame: Apr 27, 2020 Eating (QC): 6 (met) Oral Hygiene (QC): 6 (met) Shower/Bathe Self (QC): 6 (not met, supervision) Upper Body Dressing (QC): 6 (met) Lower Body Dressing (QC): 6 (not met, supervision) On/Off Footwear (QC): 6 (met) Toileting Hygiene (QC): 6 (met) Toilet/Commode Transfer (QC): 6 (met) Additional Goals: 1-Demonstrate ADL Tasks, 2-Verbalize Understanding, 3- ImproveStrength/Jameson 1=Demonstrate adherence to instructed precautions during ADL tasks. 2=Patient will verbalize/demonstrate understanding of assistive devices/modifications for ADL. 3=Patient will improve strength/tolerance for activity to enable patient to perform ADL's. CARIN JACOBSEN PT Apr 17, 2020 15:03
== END 2020-04-17 10:00 | disposition home or self-care (01) | DRG 552 ==
PROVIDERS: ADMIT Internal Medicine; ATTEND Internal Medicine
DX: M48.061 Spinal stenosis, lumbar region without neurogenic claudication (principal); M54.16 Radiculopathy, lumbar region; Z91.81 History of falling; Z47.89 Encounter for other orthopedic aftercare; K59.00 Constipation, unspecified; E11.40 Type 2 diabetes mellitus with diabetic neuropathy, unspecified; G25.81 Restless legs syndrome; J44.9 Chronic obstructive pulmonary disease, unspecified; Z66 Do not resuscitate; G47.33 Obstructive sleep apnea (adult) (pediatric); E78.5 Hyperlipidemia, unspecified; E78.00 Pure hypercholesterolemia, unspecified; I10 Essential (primary) hypertension; M19.042 Primary osteoarthritis, left hand; M19.041 Primary osteoarthritis, right hand; N32.81 Overactive bladder; K21.9 Gastro-esophageal reflux disease without esophagitis; M54.9 Dorsalgia, unspecified; F41.9 Anxiety disorder, unspecified; F32.9 Major depressive disorder, single episode, unspecified; E66.9 Obesity, unspecified; Z79.84 Long term (current) use of oral hypoglycemic drugs; Z68.31 Body mass index [BMI] 31.0-31.9, adult; Z87.891 Personal history of nicotine dependence; Z98.1 Arthrodesis status
CPT/HCPCS: 36415; 80053; 85025; 94640; 94760

== ENCOUNTER → 2020-06-25 | Outpatient (CLI) | payer MEDICARE ==
[~2020-06-25] MED LIST changes: +ACET-2267 PO; -ALPRAZolam 0.25 MG (XANAX) TAB PO PRN; +AMLO-251 PO; +ASPI-1238 PO; +BUDE10.2 IH; +BUPR-42 PO; -CALCIUM CARBONATE 500 MG (TUMS) TAB.CHEW PO PRN; +CHOL20003 PO; +DOCU250C11 PO; -DOCUSATE SODIUM 100 MG (COLACE) CAP PO PRN; -DOCUSATE SODIUM 100 MG (COLACE) CAP PO SCH; -FLEET ENEMA ADULT 1 EA BTL PR PRN; +GLIP5TAB13 PO; +HYDR-4227 PO; -LOPERAMIDE 2 MG (IMODIUM) TABLET PO PRN; -MELATONIN 3 MG TABLET PO PRN; +METO100T12 PO; +MULT1TAB65 PO; +NF-SOLIF5T PO; -ONDANSETRON 4 MG (ZOFRAN) ORAL DISSOLVE TAB PO PRN; +OXC5T PO; +PREG75CA PO; +RT-ALBUINH INH; +SENN-20 PO; +TRAZ-227 PO; +UBID1CAP59 PO; -diphenhydrAMINE 25 MG TAB (BENADRYL) PO PRN; -guaiFENesin/CODEINE (ROBITUSSIN AC) 10ML UDC PO PRN
--- NOTE | 2020-06-25 15:36 | Diagnostic Imaging Report ---
INDICATION: Routine screening. COMPARISON: 03/27/2017 and 08/23/2015. TECHNIQUE: 2D and 3D bilateral screening mammography was performed with CAD. FINDINGS: Both breasts are heterogeneously dense, limiting the sensitivity of mammography. Numerous benign calcifications in both breasts are noted. There are also circumscribed masses in both breasts which appear stable and likely benign. No spiculated mass or malignant appearing microcalcifications are seen. The axillae are unremarkable. IMPRESSION: No mammographic features suspicious for malignancy are identified. ACR BI-RADS Category 2: Benign findings. Result letter will be mailed to the patient. Note: At least 10% of breast cancer is not imaged by mammography. Dictated by: Dictated on workstation # [id number]
== END ==
LOC: RAD 09:39
PROVIDERS: ATTEND Nurse Practitioner Family
DX: Z12.31 Encounter for screening mammogram for malignant neoplasm of breast (principal)
CPT/HCPCS: 77063; 77067

== ENCOUNTER 2020-09-11 05:31 | Outpatient (CLI) | payer MEDICARE ==
[~2020-09-11] VITALS: Ht 172.7 cm; Wt 100.0 kg
[2020-09-11] MEDS ORDERED: MIRA25TA PO (10:35)
[2020-09-11] MEDS ORDERED: ALPR0.5T7 PO (10:35)
[2020-09-12] MEDS ORDERED: OXYC1TAB11 PO (11:56)
== END 2020-09-11 11:13 | disposition home or self-care (01) ==
LOC: PREOP 05:31
PROVIDERS: ATTEND Orthopaedic Surgery
DX: Z01.818 Encounter for other preprocedural examination (principal)

== ENCOUNTER 2020-09-12 08:43 | Day surgery (SDC) | payer MEDICARE ==
[~2020-09-12] VITALS: Ht 172 cm; Wt 100.0 kg
[2020-09-12] VITALS (9 sets, daily range): BP systolic 136–169; BP diastolic 74–93
[~2020-09-12 08:43] MED LIST changes: +MIRA25TA PO; +oxyCODONE/APAP 5/325MG (PERCOCET 5) TABLET PO PRN
--- NOTE | 2020-09-12 09:08 | Progress Note-Pre Operative ---
Pre-Operative Progress Note H&P Reviewed The H&P was reviewed, patient examined and no changes noted. Date Seen by Provider: Sep 12, 2020 Time Seen by Provider: : Date H&P Reviewed: Sep 12, 2020 Time H&P Reviewed: :07 Pre-Operative Diagnosis: displaced left distal radius fracture GALILEA RAZA MD Sep 12, 2020 09:08
--- NOTE | 2020-09-12 09:09 | Progress Note-Post Operative ---
Post-Operative Progess Note Surgeon (s)/Final Touch Up Painter (s) Surgeon GALILEA RAZA MD Final Touch Up Painter: Kj Bourne Pre-Operative Diagnosis displaced left distal radius fracture Post-Operative Diagnosis displaced left distal radius fracture Procedure & Operative Findings Date of Procedure 09/12/20 Procedure Performed/Findings ORIF left distal radius Anesthesia Type GETA Estimated Blood Loss Estimated blood loss (mL): minimal Specimens/Packing Specimens Removed none Packing: none GALILEA RAZA MD Sep 12, 2020 09:09
[2020-09-12] MEDS ORDERED: LIDOCAINE PF 2% 5 ML (XYLOCAINE) VIAL ONE (09:19)
[2020-09-12] MEDS ORDERED: ONDANSETRON 4 MG/2 ML (SDV) Z0FRAN ONE (09:19)
[2020-09-12] MEDS ORDERED: proPOfol 200 MG/20 ML (DIPRIVAN) VIAL IV ONE (09:19)
[2020-09-12] MEDS ORDERED: fentaNYL INJ 100 MCG/2 ML AMP ONE (09:20)
[2020-09-12] MEDS ORDERED: MIDAZOLAM 2 MG/2 ML (VERSED) VIAL ONE (09:20)
[2020-09-12] MEDS ORDERED: SEVOFLURANE (ULTANE) 15 ML INHAL SOLN ONE ×4 (09:21→10:41)
[2020-09-12] MEDS ORDERED: ceFAZolin INJECTION 1,000 MG in WATER (STERILE) FOR INJECTION 10 ML IV ONE (09:30)
[2020-09-12] MEDS ORDERED: BUPIVACAINE 0.5% 30 ML (SENSORCAINE) VIAL ONE (09:30)
[2020-09-12] MEDS ORDERED: WATER (STERILE) FOR INJECTION 10 ML ONE (09:32)
[2020-09-12] MEDS ORDERED: ceFAZolin INJECTION 1,000 MG ONE (09:32)
[2020-09-12] MEDS: LACTATED RINGERS 1,000 ML IV PRN ×2 (09:40→11:32)
[2020-09-12] MEDS ORDERED: PROMETHAZINE INJ 25 MG/ML (PHENERGAN) AMP IVP ONE (11:00)
[2020-09-12] MEDS ORDERED: morphine INJ 10 MG/ML 1ML (SYR OR VIAL) IVP ONE (11:00)
[2020-09-12] MEDS ORDERED: ONDANSETRON 4 MG/2 ML (SDV) Z0FRAN IVP PRN (11:00)
[2020-09-12] MEDS ORDERED: OXYC1TAB11 PO (11:56)
--- NOTE | 2020-09-12 12:48 | Diagnostic Imaging Report ---
INDICATION: Fracture. ORIF. COMPARISON: None. TOTAL FLUOROSCOPY TIME: 15.2 seconds. TOTAL NUMBER OF FLUOROSCOPIC IMAGES SAVED: Two. FINDINGS: Multiple intraoperative image intensifier views of the wrist were obtained during ORIF. The images provided show indwelling orthopedic sideplate and screws along the ventral margins of the distal radius. Please note, the interpreting radiologist was not present during the procedure. IMPRESSION: Fluoroscopic guidance provided intraoperatively. Dictated by: Dictated on workstation # [id number]
--- NOTE | 2020-09-12 13:48 | Anesthesia-General Post-Op ---
General Patient Condition Mental Status/LOC: Same as Preop Cardiovascular: Satisfactory Nausea/Vomiting: Absent Respiratory: Satisfactory Pain: Controlled Complications: Absent Post Op Complications Complications None Follow Up Care/Instructions Patient Instructions None needed. Anesthesia/Patient Condition Patient Condition Patient is doing well, no complaints, stable vital signs, no apparent adverse anesthesia problems. No complications reported per nursing. PATRICK GUTIERREZ CRNA Sep 12, 2020 13:48
--- NOTE | 2020-09-12 16:47 | OPERATIVE REPORT ---
DATE OF SERVICE: 09/12/2020 PREOPERATIVE DIAGNOSIS: Closed displaced intraarticular left distal radius fracture. POSTOPERATIVE DIAGNOSIS: Closed displaced intraarticular left distal radius fracture. PROCEDURE PERFORMED: Open reduction and internal fixation of the left distal radius. SURGEON: Nadir Barrow MD. SUPERVISOR STEFFEN HOUSE: Kj Bourne, who assisted throughout the procedure and closed the incision. ANESTHESIA: General endotracheal by Jair Dennis CRNA. TOURNIQUET TIME: 26 minutes at 250 mmHg. ESTIMATED BLOOD LOSS: Minimal. DRAINS: None. COMPLICATIONS: None. POSTOPERATIVE PLAN: Splint wear for four weeks with early range of motion to begin in 2 weeks. The patient was transferred to the recovery room awake and stable condition. STATEMENT OF MEDICAL NECESSITY: The patient is a 70-year-old female, who fell on an outstretched left upper extremity over the weekend. She had a displaced, angulated left distal radius fracture. There were four parts to the fracture with angulation and shortening and the patient was counseled regarding treatment options and elected to proceed with operative intervention. DESCRIPTION OF PROCEDURE: After the risks and benefits of the procedure were discussed and questions were answered, informed consent was signed and placed on the chart, the operative site was confirmed in the preoperative holding area initialed by the surgeon. The patient was then transferred to the operating room and after adequate levels of general endotracheal anesthetic were obtained, a timeout was called, confirming the operative site. The left upper extremity was prepped and draped in the usual sterile fashion. Incision was made over the flexor carpi radialis. The underlying soft tissues were carefully dissected. The sheath of the flexor carpi radialis was incised. The flexor pollicis longus was identified and the flexor carpi radialis was retracted ulnarly. Subperiosteal dissection was carried out, elevating the pronator quadratus and retractors were placed directly on the bony surface. A Synthes distal radius plate was placed under fluoroscopic guidance with two proximal cortical screws and four distal cancellous screws, all with excellent purchase and well aligned under fluoroscopic visualization. Fluoroscopy in AP, lateral and oblique planes revealed anatomic reduction of the fracture with well-placed hardware. The wrist was taken through range of motion, full range of motion was noted. The fracture was stable. The tourniquet was deflated. The wound was copiously irrigated. The pronator quadratus was brought over the plate, 3-0 Vicryl was used to reapproximate subcutaneous tissue and skin was closed with billy. Incision was infiltrated with plain Marcaine. A soft dressing and splint were applied and the patient was transferred to the recovery room awake and in stable condition. Job ID: [id number] DocumentID: [id number] Dictated Date: 09/12/2020 10:46:53 [employer]ic Field [employer] Date: 09/12/2020 16:47:37 Dictated By: NADIR BARROW MD
== END 2020-09-12 12:50 | disposition home or self-care (01) ==
LOC: SDC 08:43
PROVIDERS: ATTEND Orthopaedic Surgery
DX: S52.572A Other intraarticular fracture of lower end of left radius, initial encounter for closed fracture (principal); I10 Essential (primary) hypertension; E78.5 Hyperlipidemia, unspecified; G47.33 Obstructive sleep apnea (adult) (pediatric); J44.9 Chronic obstructive pulmonary disease, unspecified; E11.40 Type 2 diabetes mellitus with diabetic neuropathy, unspecified; E66.9 Obesity, unspecified; K21.9 Gastro-esophageal reflux disease without esophagitis; G25.81 Restless legs syndrome; M19.90 Unspecified osteoarthritis, unspecified site; F32.9 Major depressive disorder, single episode, unspecified; F41.9 Anxiety disorder, unspecified; Z99.89 Dependence on other enabling machines and devices; Z68.33 Body mass index [BMI] 33.0-33.9, adult; Z88.8 Allergy status to other drugs, medicaments and biological substances; Z88.1 Allergy status to other antibiotic agents; Z79.891 Long term (current) use of opiate analgesic; Z90.710 Acquired absence of both cervix and uterus; Z79.84 Long term (current) use of oral hypoglycemic drugs; Z79.82 Long term (current) use of aspirin; Z79.899 Other long term (current) drug therapy; Z87.891 Personal history of nicotine dependence; Z82.49 Family history of ischemic heart disease and other diseases of the circulatory system
CPT/HCPCS: 76000; 82962; 87081

== ENCOUNTER → 2021-01-08 | Outpatient (CLI) | payer MEDICARE ==
[~2021-01-08] MED LIST changes: +CATHETER FLUSH 10 ML SYR IV PRN; -MULT1TAB65 PO; +MULT1TAB66 PO; +OXYC1TAB11 PO; +REGADENOSON 0.4 MG/5 ML SYR (LEXISCAN) IV ONE; -oxyCODONE/APAP 5/325MG (PERCOCET 5) TABLET PO PRN
[2021-01-08 13:35] VITALS: BP 169/77
--- NOTE | 2021-01-08 18:57 | STRESS TEST ---
DATE OF SERVICE: 01/08/2021 RESTING AND POST REGADENOSON TECHNETIUM-99M TETROFOSMIN SPECT CT IMAGING ORDERING PHYSICIAN: Dr. Diaz. PRIMARY PHYSICIAN: Dr. Hayes. CLINICAL DIAGNOSIS: Chest discomfort. Baseline images were carried out after injection of 10.16 mCi of technetium-99m Tetrofosmin. This was followed by 0.4 mg regadenoson and 29.6 mCi of technetium-99m Tetrofosmin for stress imaging. The electrocardiogram showed sinus rhythm at baseline. It did not change significantly with the regadenoson infusion. The patient tolerated the procedure well. Review of images at rest and following stress does not indicate any significant perfusion defects consistent with myocardial ischemia or infarction. Gated images show normal global left ventricular systolic function with normal regional wall motion. Left ventricular ejection fraction is calculated to be 72%. CONCLUSIONS: 1. No evidence of any significant myocardial ischemia or infarction on this study. 2. Normal regional wall motion. 3. Normal global left ventricular systolic function with a calculated ejection fraction of 72%. Job ID: [id number] DocumentID: [id number] Dictated Date: 01/08/2021 17:28:59 Chemistry Lab Instructor Date: 01/08/2021 18:56:13 Dictated By: TONIE DIAZ MD, MA, FACP, FACC,
== END ==
LOC: CARD 12:00
PROVIDERS: ATTEND Internal Medicine Cardiovascular Disease
DX: I08.3 Combined rheumatic disorders of mitral, aortic and tricuspid valves (principal)
CPT/HCPCS: 78452; 93017; 93306; A9502

== ENCOUNTER 2021-06-01 13:50 | Emergency (ER) | payer MEDICARE ==
[~2021-06-01] VITALS: Ht 170 cm; Wt 99.0 kg
[~2021-06-01 13:50] MED LIST changes: -CATHETER FLUSH 10 ML SYR IV PRN; +CYCL10TA25 PO; -CYCL10TA9 PO; -REGADENOSON 0.4 MG/5 ML SYR (LEXISCAN) IV ONE
--- NOTE | 2021-06-01 14:13 | ED GI ---
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 Source of Information: Patient Exam Limitations: No Limitations History of Present Illness Date Seen by Provider: Jun 01, 2021 Time Seen by Provider: 14:12 Initial Comments To ER with reports of having swallowed a chicken bone about 1 hour ago when she believes it may be stuck in her throat. She is able to swallow her own secretions. No vomiting. Also has right lateral knee pain no injury. Timing/Duration: 1 Hour Severity/Quality: Moderate Allergies and Home Medications Allergies Coded Allergies: phenazopyridine (Verified Allergy, Unknown, 09/11/20) levofloxacin (Verified Adverse Reaction, Mild, N/V, 09/11/20) Patient Home Medication List Home Medication List Reviewed: Yes Acetaminophen (Tylenol Extra Strength) 500 Mg Tablet, 500-1,000 MG PO Q8H PRN for PAIN-MILD (1-4), (Reported) Entered as Reported by: YANE STALEY on 04/16/20 1526 Albuterol Sulfate (Ventolin Hfa) 1 Puff Puff, 2 PUFF INH Q6H PRN for SHORTNESS OF BREATH, (Reported) Entered as Reported by: YANE STALEY on 04/12/20 1009 Alprazolam (Alprazolam) 0.5 Mg Tablet, 0.25 MG PO BID PRN, (Reported) Entered as Reported by: GABRIEL MCCAIN on 09/11/20 1035 Amlodipine Besylate (Amlodipine Besylate) 10 Mg Tablet, 5 MG PO DAILY, (Reported) Entered as Reported by: YANE STALEY on 04/12/20 1009 Aspirin (Aspirin EC) 81 Mg Tablet.dr, 81 MG PO DAILY Prescribed by: KAYLEEN BURCIAGA on 04/17/20 0534 Budesonide/Formoterol Fumarate (Symbicort 160-4.5 Mcg Inhaler) 10.2 Gm Hfa.aer.ad, 2 PUFF IH BID, (Reported) Entered as Reported by: YANE STALEY on 04/12/20 1009 Bupropion HCl (Wellbutrin Xl) 150 Mg Tab.er.24h, 150 MG PO DAILY, (Reported) Entered as Reported by: YANE STALEY on 04/12/20 100 Cholecalciferol (Vitamin D3) (Vitamin D3) 50 Mcg Capsule, 50 MCG PO DAILY, (Reported) Entered as Reported by: YANE STALEY on 04/12/20 100 Docusate Sodium (Docusate Sodium) 250 Mg Capsule, 250 MG PO BID, (Reported) Entered as Reported by: YANE STALEY on 04/12/20 100 Glipizide (Glipizide) 5 Mg Tablet, 2.5 MG PO BID WITH MEALS, (Reported) Entered as Reported by: YANE STALEY on 04/12/20 100 Losartan Potassium (Losartan Potassium) 50 Mg Tablet, 50 MG PO BID, (Reported) Entered as Reported by: BEBETO PÉREZ on 07/20/15 0826 Metoprolol Tartrate (Metoprolol Tartrate) 100 Mg Tablet, 100 MG PO BID, (Reported) Entered as Reported by: YANE STALEY on 04/12/20 100 Mirabegron (Myrbetriq) 25 Mg Tab.er.24h, 25 MG PO DAILY, (Reported) Entered as Reported by: GABRIEL MCCAIN on 09/11/20 1035 Multivitamin (Daily Aj) 1 Each Tablet, 1 EACH PO DAILY, (Reported) Entered as Reported by: YANE STALEY on 04/12/20 100 Oxycodone HCl/Acetaminophen (Oxycodone-Acetaminophen 5-325) 1 Each Tablet, 1 EACH PO Q4H PRN for PAIN-SEVERE Prescribed by: GABRIEL MCNALLY on 09/12/20 1156 Pramipexole Di-HCl (Mirapex) 0.5 Mg Tablet, 0.5 MG PO BID, (Reported) Entered as Reported by: BEBETO PÉREZ on 07/20/15 0826 Pregabalin (Lyrica) 75 Mg Capsule, 75 MG PO Q12H, (Reported) Entered as Reported by: YANE STALEY on 04/12/20 100 Solifenacin Succinate (Vesicare) 5 Mg Tablet, 10 MG PO DAILY, (Reported) Entered as Reported by: YANE STALEY on 04/12/20 100 Trazodone HCl (Trazodone HCl) 100 Mg Tablet, 100 MG PO HS, (Reported) Entered as Reported by: YANE STALEY on 04/12/20 1009 Ubidecarenone/Vit E/Vit E Mix (Co-Enzyme Q10 100 mg Softgel) 1 Each Capsule, 1 E ACH PO DAILY, (Reported) Entered as Reported by: YANE STALEY on 04/12/20 1009 Review of Systems Review of Systems Constitutional: see HPI EENTM: No Symptoms Reported Respiratory: No Symptoms Reported Cardiovascular: No Symptoms Reported Gastrointestinal: No Symptoms Reported Genitourinary: No Symptoms Reported Musculoskeletal: no symptoms reported Skin: no symptoms reported Psychiatric/Neurological: No Symptoms Reported Endocrine: No Symptoms Reported Hematologic/Lymphatic: No Symptoms Reported Past Skvgrkq-Ahbnws-Ktfbca Hx Patient Social History Tobacco Use?: No Smoking Status: Former Smoker Substance use?: No Alcohol Use?: No Pt feels they are or have been: No Immunizations Up To Date Tetanus Booster (TDap): Unknown First/Initial COVID19 Vaccinat: 07/06/20 Second COVID19 Vaccination Tino: 08/03/20 Third COVID19 Vaccination Date: 07/06/20 Seasonal Allergies Seasonal Allergies: No Past Medical History Surgeries: Yes (HYST,L ROT.CUFF,BLADDER SLING X2, BILAT SACROILIAC JOINT INJECTION) Bladder Surgery, Orthopedic Respiratory: Yes Asthma, Sleep Apnea, COPD Currently Using CPAP: Yes Currently Using BIPAP: No Cardiac: Yes High Cholesterol, Hypertension Neurological: No Neuropathy Reproductive Disorders: No Female Reproductive Disorders: Denies Sexually Transmitted Disease: No HIV/AIDS: No Genitourinary: No Kidney Stones Gastrointestinal: Yes Gastroesophageal Reflux, Chronic Constipation, Irritable Bowel Musculoskeletal: No Chronic Back Pain Endocrine: Yes Diabetes, Non-Insulin dep HEENT: Yes (BLURRY VISION-DRY EYES) Cataract Loss of Vision: Bilateral Hearing Impairment: Denies Cancer: No Psychosocial: Yes Anxiety, Depression Integumentary: No Blood Disorders: No Adverse Reaction/Blood Tranf: No Family Medical History Cardiovascular disease 19 MOTHER G8 SISTER Hypertension 19 MOTHER Physical Exam Vital Signs Vital Signs - First Documented 06/01/21 14:06 Temp 36.2 Pulse 76 Resp 18 B/P (MAP) 159/72 (101) Pulse Ox 94 O2 Delivery Room Air Capillary Refill : Less Than 3 Seconds Height/Weight/BMI Height: 5'7.00" Weight: 183lbs. 0.0oz. 83.368873bs; 34.00 BMI Method: General Appearance: WD/WN, no apparent distress Neck: non-tender, full range of motion Respiratory: no respiratory distress, no accessory muscle use Cardiovascular: regular rate, rhythm, no murmur Gastrointestinal: normal bowel sounds, non tender, soft Extremities: normal range of motion, non-tender Neurologic/Psychiatric: alert, normal mood/affect, oriented x 3 Skin: normal color, warm/dry Progress/Results/Core Measures Results/Orders My Orders Orders - JOHN LINARES APRN Ct Chest Wo (06/01/21 14:11) Knee, Right, 3 Views (06/01/21 14:11) Soft Tissue Neck (06/01/21 14:50) Vital Signs/I&O 06/01/21 14:06 Temp 36.2 Pulse 76 Resp 18 B/P (MAP) 159/72 (101) Pulse Ox 94 O2 Delivery Room Air Blood Pressure Mean: 101 Departure Communication (Admissions) NAME: [facility] REC#: [id number] PT STATUS: REG ER : 1950 PHYSICIAN: JOHN LINARES APRN ADMIT DATE: 06/01/21/ER Signed Date of Exam:06/01/21 CT CHEST WO EXAMINATION: CT chest without contrast. TECHNIQUE: Multiple contiguous axial images were obtained through the chest without the use of intravenous contrast. All CT scans use one or more of the following dose optimizing techniques: automated exposure control, MA and/or KvP adjustment based on patient size and exam type or iterative reconstruction. HISTORY: Swallowed a chicken bone. Feels like it is stuck in the throat. COMPARISON: 05/13/2019. FINDINGS: The heart size is within normal limits. No pericardial effusion is present. There is calcified aortic and coronary atherosclerotic plaque without evidence of aneurysm. There is no mediastinal, hilar, or axillary lymphadenopathy. The lungs demonstrate no pulmonary nodules or masses. There are no focal areas of consolidation. Small amount of dependent atelectasis is seen in the right lung. No central endobronchial obstructing lesions are identified. There is no pleural effusion or pneumothorax. No radiopaque foreign body is seen in the chest. There is a linear focus in the stomach which may represent the patient's history of swallowed chicken bone. The osseous structures demonstrate no acute abnormalities. There is hepatic steatosis with hepatosplenomegaly. Both adrenal glands are unremarkable. IMPRESSION: 1. No radiopaque foreign body is seen in the chest. A linear focus is seen in the stomach which is favored to represent the patient's history of swallowed chicken bone. 2. Hepatosplenomegaly with hepatic steatosis. Dictated by: Dictated on workstation # [id number] Dict: 06/01/21 1445 Trans: 06/01/21 1457 [id number] Interpreted by: TAMEKA GARCIA DO Electronically signed by: TAMEKA GARCIA DO 06/01/21 1452 Impression Primary Impression: Esophageal abrasion Additional Impression: Internal derangement of knee Disposition: HOME, SELF-CARE Condition: Stable Departure-Patient Inst. Decision time for Depature: 16:19 Referrals: ANA MONTOYA MD (PCP/Family) Primary Care Physician Patient Instructions: Internal Derangement of the Knee Add. Discharge Instructions: 1. Return to ER for any abdominal pain. Proceed with colonoscopy prep as scheduled. Use the Ultram as needed for knee pain. If the knee pain persists follow-up with Dr. Montoya or go directly to orthopedics. All discharge instructions reviewed with patient and/or family. Voiced understanding. Scripts Tramadol HCl (Ultram) 50 Mg Tablet 50 MG PO Q6H PRN for PAIN-MODERATE (5-7), #10 TAB Prov: JOHN LINARES APRN 06/01/21 Copy Copies To 1: ANA MONTOYA MD, PETER J APRN Jun 01, 2021 14:13
--- NOTE | 2021-06-01 14:57 | Diagnostic Imaging Report ---
EXAMINATION: CT chest without contrast. TECHNIQUE: Multiple contiguous axial images were obtained through the chest without the use of intravenous contrast. All CT scans use one or more of the following dose optimizing techniques: automated exposure control, MA and/or KvP adjustment based on patient size and exam type or iterative reconstruction. HISTORY: Swallowed a chicken bone. Feels like it is stuck in the throat. COMPARISON: 05/13/2019. FINDINGS: The heart size is within normal limits. No pericardial effusion is present. There is calcified aortic and coronary atherosclerotic plaque without evidence of aneurysm. There is no mediastinal, hilar, or axillary lymphadenopathy. The lungs demonstrate no pulmonary nodules or masses. There are no focal areas of consolidation. Small amount of dependent atelectasis is seen in the right lung. No central endobronchial obstructing lesions are identified. There is no pleural effusion or pneumothorax. No radiopaque foreign body is seen in the chest. There is a linear focus in the stomach which may represent the patient's history of swallowed chicken bone. The osseous structures demonstrate no acute abnormalities. There is hepatic steatosis with hepatosplenomegaly. Both adrenal glands are unremarkable. IMPRESSION: 1. No radiopaque foreign body is seen in the chest. A linear focus is seen in the stomach which is favored to represent the patient's history of swallowed chicken bone. 2. Hepatosplenomegaly with hepatic steatosis. Dictated by: Dictated on workstation # [id number]
--- NOTE | 2021-06-01 15:04 | Diagnostic Imaging Report ---
INDICATION: Right knee pain, no known injury. TECHNIQUE: 3 views of the right knee. CORRELATION STUDY: None. FINDINGS: The joint spaces are maintained. The articular surfaces are smooth and preserved. There is no acute bony abnormality. Soft tissue edema is noted, particularly the anterior and medial aspect of the leg. Joint effusion is noted. Vascular calcification. IMPRESSION: Negative for acute bony abnormality of the knee. Soft tissue edema and effusion. Dictated by: Dictated on workstation # [id number]
[2021-06-01] MEDS ORDERED: TRAM-42 PO (16:20)
[2021-06-01 16:28] VITALS: BP 160/80
--- NOTE | 2021-06-01 18:49 | Diagnostic Imaging Report ---
CLINICAL INDICATION: Evaluate for foreign body, chicken bone evaluation. EXAM: X-ray of the neck soft tissue, AP and lateral views. COMPARISON: None. FINDINGS AND IMPRESSION: 1: There is thyroid chondral calcification and calcifications involving the neck soft tissue which limits evaluation of the oropharynx. There is no definite radiodense foreign object, as visualized, but small foreign object may be missed. There is no soft tissue air seen. If there is continued concern for foreign body, then CT scan would better evaluate. 2: There is cervical spine degenerative disease with vertebral body spurs and facet arthropathy. Dictated by: Dictated on workstation # [id number]
== END 2021-06-01 16:29 | disposition home or self-care (01) ==
LOC: EDUNIT# 13:50 → ER 13:55
DX: S27.818A Other injury of esophagus (thoracic part), initial encounter (principal); M23.91 Unspecified internal derangement of right knee; I10 Essential (primary) hypertension; J44.9 Chronic obstructive pulmonary disease, unspecified; G47.30 Sleep apnea, unspecified; F41.9 Anxiety disorder, unspecified; F32.9 Major depressive disorder, single episode, unspecified; G89.29 Other chronic pain; M54.9 Dorsalgia, unspecified; E11.9 Type 2 diabetes mellitus without complications; Z87.891 Personal history of nicotine dependence; Z79.82 Long term (current) use of aspirin; Z79.899 Other long term (current) drug therapy; Z79.891 Long term (current) use of opiate analgesic; W22.8XXA Striking against or struck by other objects, initial encounter
CPT/HCPCS: 70360; 71250; 73562

== ENCOUNTER 2021-09-10 08:00 | Day surgery (SDC) | payer MEDICARE ==
[~2021-09-10] VITALS: Ht 170.2 cm; Wt 105.0 kg
[2021-09-10] VITALS (22 sets, daily range): BP systolic 118–154; BP diastolic 65–102
[2021-09-10 07:18] LABS: HEMATOCRIT 41 % (35-52); HEMOGLOBIN 13.4 g/dL (11.5-16.0); MEAN CORPUSCULAR HEMOGLOBIN 30 pg (25-34); MEAN CORPUSCULAR HGB CONC 32 g/dL (32-36); MEAN CORPUSCULAR VOLUME 92 fL (80-99); MEAN PLATELET VOLUME 10.4 fL (9.0-12.2); PLATELET COUNT 169 10^3/uL (130-400); WHITE BLOOD COUNT 6.3 10^3/uL (4.3-11.0)
[2021-09-10 07:30] LABS: INR 0.9 (0.8-1.4); PROTHROMBIN TIME PATIENT 12.9 SEC (12.2-14.7)
[2021-09-10 07:33] LABS: ALBUMIN 4.1 GM/DL (3.2-4.5); POTASSIUM 4.5 MMOL/L (3.6-5.0)
[2021-09-10 07:34] LABS: CALCIUM 9.8 MG/DL (8.5-10.1)
[2021-09-10 07:36] LABS: TOTAL PROTEIN 6.4 GM/DL (6.4-8.2)
[2021-09-10 07:38] LABS: BILIRUBIN,TOTAL 0.5 MG/DL (0.1-1.0)
[2021-09-10 07:39] LABS: CREATININE SERUM 1.22 MG/DL (0.60-1.30)
[~2021-09-10 08:00] MED LIST changes: +FURO20TA4 PO; +HEParin (CATH LAB) 2,000 ML IV ONE; +LIDOCAINE 1% INJ 50 ML (XYLOCAINE) VIAL ONE; +MIDAZOLAM 5 MG/5 ML (VERSED) VIAL ONE; +MODA200T39 PO; +NS IV 1000 ML 1,000 ML IV SCH; +NS IV 1000 ML 1,000 ML ONE; +POTA10TA37 PO; +fentaNYL INJ 100 MCG/2 ML AMP ONE
[2021-09-10] MEDS ORDERED: HEParin 1000 UNIT/ML (10ML VIAL) FOR BOLUS ONE (08:44)
[2021-09-10] MEDS ORDERED: EPTIFIBATIDE BOLUS 20 ML IV ONE (08:45)
[2021-09-10] MEDS ORDERED: ASPIRIN 81 MG CHEW (CHILDREN'S ASA) ONE (09:10)
[2021-09-10] MEDS ORDERED: CLOPIDOGREL 300 MG (PLAVIX) TABLET PO ONE (09:10)
--- NOTE | 2021-09-10 09:14 | Cardiac Procedure Note-CS/ASA ---
Pre-Procedure Note Pre-Op Procedure Note H&P Reviewed The H&P was reviewed, patient examined and no changes noted. Date H&P Reviewed: Sep 10, 2021 Time H&P Reviewed: 08:30 Conscious Sedation Pre-Proced Time 08:30 ASA Score 3 For ASA 3 and 4: Consider anesthesia and medical clearance. Also, for patients with a history of failed moderate sedation consider anesthesia. Airway Lungs Heart ASA score ASA 1: a normal healthy patient ASA 2: a patient with a mild systemic disease (mid diabetes, controlled hypertension, obesity ASA 3: a patient with a severe systemic disease that limits activity (angina, COPD, prior Myocardial infarction) ASA 4: a patient with an incapacitating disease that is a constant threat to life (CHF, renal failure) ASA 5: a moribund patient not expected to survive 24 hrs. (ruptured aneurysm) ASA 6: a declared brain- patient whose organs are being harvested. For emergent operations, add the letter E after the classification Mallampati Classification Grade 3 Sedation Plan Analgesia, Amnesia, Plan communicated to team members, Discussed options with patient/fam, Discussed risks with patient/fam The patient is an appropriate candidate to undergo the planned procedure, sedation, and anesthesia. The patient immediately re-assessed prior to indication. TONIE ROSARIO MD FACP FAC CCDS Sep 10, 2021 09:14
[2021-09-10] MEDS ORDERED: RT-ALBUTEROL SULF 2.5 MG/3 ML PRE-MIX VIAL INH PRN (09:15)
[2021-09-10] MEDS ORDERED: ACETAMINOPHEN 500 MG TAB (TYLENOL) PO PRN (09:15)
[2021-09-10] MEDS ORDERED: PREGABALIN 75 MG (LYRICA) CAP PO SCH ×2 (09:15→13:00)
[2021-09-10] MEDS ORDERED: PATIENT MAY USE OWN MEDS, ALL PO SCH (09:15)
[2021-09-10] MEDS ORDERED: NON-FORMULARY MEDICATION 1 EA EA (Potassium Chloride 10 MEQ) PO PRN (09:15)
[2021-09-10] MEDS ORDERED: FUROSEMIDE 20 MG (LASIX) TAB PO PRN ×2 (09:15→13:00)
[2021-09-10] MEDS: NS IV 1000 ML 1,000 ML IV SCH ×2 (09:52→14:08)
--- NOTE | 2021-09-10 10:49 | CARDIAC CATHETERIZATION ---
DATE OF SERVICE: 09/10/2021 CARDIAC CATHETERIZATION AND CORONARY INTERVENTION REPORT INDICATIONS FOR PROCEDURE: The patient is a 71-year-old lady, who has multiple coronary artery disease risk factors and who has been experiencing chest discomfort that is suggestive of angina pectoris and the symptoms have been progressive. Currently, she has symptoms of class III angina. Cardiac catheterization was carried out after having obtained an informed consent. An informed consent was also obtained for ad hoc coronary intervention, if needed. DESCRIPTION OF PROCEDURE: She was brought to the cardiac catheterization laboratory in a fasting state. Right groin was prepared and draped in the usual sterile fashion. Lidocaine 1% was used for local anesthesia. Modified Seldinger technique was used to advance a 5-Colombian sheath in the right femoral artery, 5-Colombian JL4 catheter was used for left coronary angiography, 5-Colombian JR4 catheter was used for right coronary angiography, 5-Colombian pigtail catheter was used for left heart catheterization and left ventricular angiography. PERCUTANEOUS INTERVENTION TO THE LEFT CIRCUMFLEX ARTERY: Following completion of the diagnostic procedure, we carried out percutaneous intervention to the left circumflex artery, where the patient was noted to have 90% mid vessel stenosis. We exchanged the sheath over a wire for a 6-Colombian sheath. We used a 6-Colombian JL4 guide catheter. We advanced a BMW wire across the lesion and placed it in the distal posterolateral branch. We gave 7000 units of intravenous heparin and a double bolus of Integrilin during the procedure. We carried out balloon angioplasty with a 3.0 x 30 mm balloon. We stented the lesion with Skypoint 3.0 x 23 mm stent that was deployed at 20 atmospheres and we then postdilated the proximal part of the stented segment with a 3.5 x 15 mm balloon. This was done because the proximal part of the stented segment is slightly larger than the distal part of the standard segment. Subsequent angiography revealed 0% residual stenosis. Angiography of the right femoral artery had been carried out through the sheath at the beginning of the procedure. At the end of the procedure, following removal of the angioplasty equipment, we used Mynx to achieve hemostasis following sheath removal. She tolerated the procedure well. HEMODYNAMICS: Left ventricular end-diastolic pressure following coronary angiography was 20 mmHg. There was no significant pressure gradient on pullback across the aortic valve. CORONARY ANGIOGRAPHY: Diffuse coronary calcification is seen. Left main coronary artery does not have significant disease. Left anterior descending artery has mild to moderate diffuse disease. Left circumflex artery is large and dominant and had a 90% stenosis in a relatively long segment in its mid portion. This was intervened on, as described in detail above. Following deployment of Skypoint 3.0 x 23 mm stent, there was no significant residual stenosis and flow throughout the vessel is normal (EUSEBIA 3). Right coronary artery is small and nondominant and has mild diffuse plaque. LEFT VENTRICULAR ANGIOGRAPHY: Left ventricular angiography was carried out in the right anterior oblique projection. Global left ventricular systolic function is well preserved. Left ventricular ejection fraction is 50% to 55%. Mitral annular calcification is seen. CONCLUSIONS: 1. Coronary artery disease primarily consisting of a long 90% mid vessel stenosis and a large, dominant left circumflex artery that was successfully treated with a Skypoint 3.0 x 23 mm stent. The rest of the coronary vessels have mild to moderate diffuse disease. 2. A well preserved global left ventricular systolic function with an ejection fraction of 50% to 55%. 3. Elevated left ventricular end-diastolic pressure (20 mmHg). DISCUSSION AND RECOMMENDATIONS: Aspirin and previous blood pressure regimen is being continued. Plavix has been added. Statins have been added. Job ID: [id number] DocumentID: [id number] Dictated Date: 09/10/2021 09:32:52 [employer] Lifeguard Date: 09/10/2021 10:48:50 Dictated By: TONIE ROSARIO MD, MA, FACP, FACC, MTDD
[2021-09-10] MEDS ORDERED: MULT-1136 PO (12:07)
[2021-09-10] MEDS ORDERED: DOCU100T2 PO (12:07)
[2021-09-10] MEDS ORDERED: [UNRECOGNIZED DRUG - REMARK] PO PRN (13:00)
[2021-09-10] MEDS: PREGABALIN 75 MG (LYRICA) CAP PO SCH (13:55)
[2021-09-10] MEDS: glipiZIDE 5 MG (GLUCOTROL) TAB PO SCH (18:32)
[2021-09-10] MEDS: LOSARTAN 50 MG (COZAAR) TAB PO SCH (22:10)
[2021-09-10] MEDS: [UNRECOGNIZED DRUG - REMARK] IH SCH (22:10)
[2021-09-10] MEDS: [UNRECOGNIZED DRUG - REMARK] PO SCH (22:11)
[2021-09-10] MEDS: PRAMIPEXOLE 0.5 MG TAB (MIRAPEX) PO SCH (22:11)
[2021-09-10] MEDS: FAMOTIDINE 20 MG (PEPCID) TABLET PO SCH (22:12)
[2021-09-11] VITALS: BP 132/60
[2021-09-11] MEDS: PREGABALIN 75 MG (LYRICA) CAP PO SCH (01:41)
[2021-09-11 04:00] VITALS: BP 123/61
[2021-09-11] MEDS ORDERED: MULTIVIT W/MINERALS TAB (THERAGRAN M) PO SCH (07:00)
[2021-09-11 08:00] VITALS: BP 113/77
--- NOTE | 2021-09-11 08:05 | Progress Note - Cardiology ---
Cardiology SOAP Progress Note Subjective: Lying in bed No c/o CP, SOB this morning No c/o palpitations Objective: I&O/Vital Signs 09/10/21 09/11/21 09/11/21 09/11/21 22:49 00:00 01:00 04:00 Pulse 71 70 70 Resp 13 17 B/P (MAP) 132/60 (84) 123/61 (81) Pulse Ox 98 91 O2 Delivery Room Air Room Air Room Air 09/11/21 08:00 Temp 36.0 Pulse 73 Resp 12 B/P (MAP) 113/77 (89) Pulse Ox 93 O2 Delivery Room Air 09/11/21 00:00 Intake Total 400 ml Balance 400 ml Weight (Pounds): 183 Weight (Ounces): 0.0 Weight (Calculated Kilograms): 83.896517 Side: right Groin site without hematoma: Yes Condition: DP/PT pulses palpable Bruising: mild bruising Constitutional: AAO x 3, well-developed, well-nourished Respiratory: No accessory muscle use, No respiratory distress; chest expansion is symmetric, chest is bilaterally symmetric, lungs clear to auscultation Cardiovascular: regular rate-rhythm; No JVD; S1 and S2 Gastrointestional: No tender; soft, round; No guarding Extremities: no lower extremity edema bilateral Neurologic/Psychiatric: grossly intact (moves all extremities) Skin: No rash on exposed areas, No ulcerations on exposed areas Results/Procedures: Labs Laboratory Tests 09/11/21 08:05: Glucometer 135H Laboratory Tests 09/10/21 07:12 A/P: Assessment: CAD - MPI of [id number] no evidence of significant myocardial ischemia or infarction. Normal regional wall motion. LVEF 72%. Normal LV cavity size - Cardiac cath of 09-10-21: Coronary artery disease primarily consisting of a long 90% mid vessel stenosis and a large, dominant left circumflex artery that was successfully treated with a Skypoint 3.0 x 23 mm stent. The rest of the coronary vessels have mild to moderate diffuse disease. A well preserved global left ventricular systolic function with an ejection fraction of 50% to 55%. Elevated left ventricular end-diastolic pressure (12 mmHg). Chronic intermittent shortness of breath - following with [facility]VC-Pulmonary - Echo of 01-08-21 showed LVEF 55-60%. Mild concentric hypertrophy. Grade 1 diastolic dysfunction. Mitral valve annulus mod calcified with mild to mod regurg. Mild AoV regurg. Mild to mod TR. 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 - Leg arterial u/s of 07/05/13 showed occlusion of R DP but no other significant PAD. - Bilat LE arterial u/s of November 2018 was unremarkable. - reports peripheral neuropathy Chronic back/sciatic pain - for which she has a pain stimulator in place Carotid dz - Mild carotid arterial disease per u/s of August 2020 Bilat leg swelling - likely secondary to venous insufficiency vs calcium channel eleonora Plan: S/P cardiac cath with successful intervention on 09-10-21 D/C home today Continue ASA, Plavix, statin, bb and other home medications Advise out pt f/u in 2 weeks TEJAL RINCON Sep 11, 2021 08:04
[2021-09-11] MEDS ORDERED: CLOP75TA28 PO (08:06)
[2021-09-11] MEDS ORDERED: ATOR40TA PO (08:06)
--- NOTE | 2021-09-11 08:07 | Discharge Inst-Cardiology ---
Discharge Inst-Cardiac Discharge Medications New Medications: Atorvastatin Calcium (Lipitor) 40 Mg Tablet 40 MG PO HS, #90 TAB 3 Refills Clopidogrel Bisulfate (Clopidogrel) 75 Mg Tablet 75 MG PO DAILY, #90 TAB 3 Refills Continued Medications: Acetaminophen (Tylenol Extra Strength) 500 Mg Tablet 500-1000 MG PO Q8H PRN for PAIN-MILD (1-4), TAB Albuterol Sulfate (Ventolin Hfa) 1 Puff Puff 2 PUFF INH Q6H PRN for SHORTNESS OF BREATH, PUFF Amlodipine Besylate (Amlodipine Besylate) 10 Mg Tablet 5 MG PO DAILY, TAB TAKES OF A 10MG TAB Aspirin (Aspirin EC) 81 Mg Tablet.dr 81 MG PO DAILY, TAB Budesonide/Formoterol Fumarate (Symbicort 160-4.5 Mcg Inhaler) 10.2 Gm Hfa.aer.ad 2 PUFF IH BID, INHALER Bupropion HCl (Wellbutrin Xl) 150 Mg Tab.er.24h 150 MG PO DAILY, TAB Cholecalciferol (Vitamin D3) (Vitamin D3) 50 Mcg Capsule 50 MCG PO DAILY, CAP Docusate Sodium (Docusate Sodium) 100 Mg Tablet 200 MG PO BID, TAB Famotidine (Acid Sql Database Programmer (FAMOTIDINE)) 20 Mg Tablet 20 MG PO BID, TAB Furosemide (Furosemide) 20 Mg Tablet 20 MG PO DAILY PRN for EDEMA, TAB Glipizide (Glipizide) 5 Mg Tablet 5 MG PO BID WITH MEALS Losartan Potassium (Losartan Potassium) 50 Mg Tablet 50 MG PO BID, TAB Metoprolol Tartrate (Metoprolol Tartrate) 100 Mg Tablet 100 MG PO BID, TAB Modafinil (Modafinil) 200 Mg Tablet 200 MG PO DAILY, TAB Multivitamin (Multivitamin) 1 Each Tablet 1 EACH PO DAILY, TAB Potassium Chloride (Potassium Chloride) 10 Meq Tab.er.prt 10 MEQ PO DAILY PRN for WHEN TAKING FUROSEMIDE, TAB Pramipexole Di-HCl (Mirapex) 0.5 Mg Tablet 0.5 MG PO BID, TAB Pregabalin (Lyrica) 75 Mg Capsule 75 MG PO Q12H, CAP Ubidecarenone/Vit E/Vit E Mix (Co-Enzyme Q10 100 mg Softgel) 1 Each Capsule 1 EACH PO DAILY, CAP New, Converted or Re-Newed RX: Transmitted to Pharmacy Patient Instructions Patient Instructions: Please schedule follow up appointment to see Dr. Diaz in 2 weeks TEJAL RINCON Sep 11, 2021 08:07
[2021-09-11] MEDS ORDERED: amLODIPine 10 MG (NORVASC) TAB PO SCH (09:00)
[2021-09-11] MEDS ORDERED: VIT E MIX PO SCH (09:00)
[2021-09-11] MEDS ORDERED: NON-FORMULARY MEDICATION 1 EA EA (Multivitamin (Daily Vite) 1 EACH) PO SCH (09:00)
[2021-09-11] MEDS ORDERED: amLODIPine 5 MG (NORVASC) TAB PO SCH (09:00)
[2021-09-11] MEDS ORDERED: [UNRECOGNIZED DRUG - REMARK] PO SCH (09:00)
[2021-09-11] MEDS ORDERED: UBIDECARENONE PO SCH (09:00)
[2021-09-11] MEDS ORDERED: [UNRECOGNIZED DRUG - OTHER] PO SCH (09:00)
[2021-09-11] MEDS ORDERED: CLOPIDOGREL 75 MG (PLAVIX) TABLET PO SCH (09:00)
[2021-09-11] MEDS ORDERED: VIT E PO SCH (09:00)
[2021-09-11] MEDS ORDERED: NON-FORMULARY MEDICATION 1 EA EA (Cholecalciferol (Vitamin D3) (Vitamin D3) 50 MCG) PO SCH (09:00)
[2021-09-11] MEDS ORDERED: VITAMIN D3 25 MCG (1,000 UNITS) TABLET PO SCH (09:00)
[2021-09-11] MEDS ORDERED: MODAFINIL 200 MG PO SCH (09:00)
[2021-09-11] MEDS: PRAMIPEXOLE 0.5 MG TAB (MIRAPEX) PO SCH (09:08)
[2021-09-11] MEDS: [UNRECOGNIZED DRUG - REMARK] PO SCH (09:09)
[2021-09-11] MEDS: FAMOTIDINE 20 MG (PEPCID) TABLET PO SCH (09:09)
[2021-09-11] MEDS: LOSARTAN 50 MG (COZAAR) TAB PO SCH (09:11)
[2021-09-11] MEDS: glipiZIDE 5 MG (GLUCOTROL) TAB PO SCH (09:12)
[2021-09-11] MEDS: [UNRECOGNIZED DRUG - REMARK] IH SCH (09:21)
[2021-09-11 09:37] LABS: HEMATOCRIT 38 % (35-52); HEMOGLOBIN 12.2 g/dL (11.5-16.0); MEAN CORPUSCULAR HEMOGLOBIN 30 pg (25-34); MEAN CORPUSCULAR HGB CONC 32 g/dL (32-36); MEAN CORPUSCULAR VOLUME 92 fL (80-99); MEAN PLATELET VOLUME 10.3 fL (9.0-12.2); PLATELET COUNT 150 10^3/uL (130-400); WHITE BLOOD COUNT 5.4 10^3/uL (4.3-11.0)
[2021-09-11 09:59] LABS: CALCIUM 8.9 MG/DL (8.5-10.1); CREATININE SERUM 1.3 MG/DL (0.60-1.30); POTASSIUM 4.2 MMOL/L (3.6-5.0)
[2021-09-11] MEDS: NS IV 1000 ML 1,000 ML IV SCH (10:04)
[2021-09-11 11:35] VITALS: BP 137/80
--- NOTE | 2021-09-12 16:50 | Progress Note - Cardiology ---
Cardiology SOAP Progress Note Subjective: LATE ENTRY FOR MY VISIT TO THE PATIENT AT 8:45 AM ON 09/11/21 No groin or leg discomfort or discoloration No cp or palp or syncope or shortness of breath No n/v/d Objective: Weight (Pounds): 183 Weight (Ounces): 0.0 Weight (Calculated Kilograms): 83.265004 Side: right Groin site without hematoma: Yes Condition: DP/PT pulses palpable Bruising: mild bruising Constitutional: AAO x 3, well-developed, well-nourished Respiratory: No accessory muscle use, No respiratory distress; chest expansion is symmetric, chest is bilaterally symmetric, lungs clear to auscultation Cardiovascular: regular rate-rhythm; No JVD; S1 and S2 Gastrointestional: No tender; soft, round; No guarding Extremities: no lower extremity edema bilateral Neurologic/Psychiatric: grossly intact (moves all extremities) Skin: No rash on exposed areas, No ulcerations on exposed areas Results/Procedures: Labs Microbiology 09/10/21 MRSA Screen - Final, Complete MRSA not isolated Laboratory Tests 09/11/21 09:30 A/P: Assessment: CAD - MPI of [id number] no evidence of significant myocardial ischemia or infarction. Normal regional wall motion. LVEF 72%. Normal LV cavity size - Cardiac cath of 09-10-21: Coronary artery disease primarily consisting of a long 90% mid vessel stenosis and a large, dominant left circumflex artery that was successfully treated with a Skypoint 3.0 x 23 mm stent. The rest of the coronary vessels have mild to moderate diffuse disease. A well preserved global left ventricular systolic function with an ejection fraction of 50% to 55%. Elevated left ventricular end-diastolic pressure (12 mmHg). Chronic intermittent shortness of breath - following with AVC-Pulmonary - Echo of 01-08-21 showed LVEF 55-60%. Mild concentric hypertrophy. Grade 1 diastolic dysfunction. Mitral valve annulus mod calcified with mild to mod regurg. Mild AoV regurg. Mild to mod TR. 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 - Leg arterial u/s of 07/05/13 showed occlusion of R DP but no other significant PAD. - Bilat LE arterial u/s of November 2018 was unremarkable. - reports peripheral neuropathy Chronic back/sciatic pain - for which she has a pain stimulator in place Carotid dz - Mild carotid arterial disease per u/s of August 2020 Bilat leg swelling - likely secondary to venous insufficiency vs calcium channel eleonora Plan: S/P cardiac cath with successful intervention on 09-10-21 D/C home today Continue ASA, Plavix, statin, bb and other home medications Explained procedure, findings, interventions, and after care to her Discussed rationale, pros, and cons of meds and advised compliance with meds. She understands Advise outpt f/u in 2 weeks TONIE ROSARIO MD FACP FAC CCDS Sep 12, 2021 16:50
== END 2021-09-11 13:00 ==
LOC: CATH 08:00 → CSD 09:50 → CATH 09-11 13:00
PROVIDERS: ATTEND Internal Medicine Cardiovascular Disease
DX: I25.10 Atherosclerotic heart disease of native coronary artery without angina pectoris (principal); I08.0 Rheumatic disorders of both mitral and aortic valves; R00.2 Palpitations; E11.9 Type 2 diabetes mellitus without complications; I12.9 Hypertensive chronic kidney disease with stage 1 through stage 4 chronic kidney disease, or unspecified chronic kidney disease; N18.30 Chronic kidney disease, stage 3 unspecified; G47.30 Sleep apnea, unspecified; I65.23 Occlusion and stenosis of bilateral carotid arteries; M54.30 Sciatica, unspecified side; E78.2 Mixed hyperlipidemia; M79.605 Pain in left leg; M54.9 Dorsalgia, unspecified; M79.604 Pain in right leg; R60.0 Localized edema; G89.29 Other chronic pain; E11.22 Type 2 diabetes mellitus with diabetic chronic kidney disease; Z99.89 Dependence on other enabling machines and devices; Z79.899 Other long term (current) drug therapy; Z87.891 Personal history of nicotine dependence
CPT/HCPCS: 80048; 80053; 80061; 82947; 85027 ×2; 85610; 85730; 87081; 93458; C1725 ×2; C1760; C1769 ×2; C1874; C1887; C1894 ×2; C9600; 36415

== ENCOUNTER 2021-10-25 08:01 | Outpatient (RCR) | payer MEDICARE ==
[~2021-10-25 08:01] MED LIST changes: +ATOR40TA PO; +CLOP75TA28 PO; +DOCU100T2 PO; -HEParin (CATH LAB) 2,000 ML IV ONE; -LIDOCAINE 1% INJ 50 ML (XYLOCAINE) VIAL ONE; -MIDAZOLAM 5 MG/5 ML (VERSED) VIAL ONE; +MULT-1136 PO; -NS IV 1000 ML 1,000 ML IV SCH; -NS IV 1000 ML 1,000 ML ONE; -fentaNYL INJ 100 MCG/2 ML AMP ONE
== END 2021-10-29 | disposition home or self-care (01) ==
LOC: CR 08:01
PROVIDERS: ATTEND Internal Medicine Cardiovascular Disease
DX: Z29.8 Encounter for other specified prophylactic measures (principal); Z95.5 Presence of coronary angioplasty implant and graft
CPT/HCPCS: 93798

== ENCOUNTER → 2021-11-04 | Outpatient (CLI) | payer MEDICARE ==
--- NOTE | 2021-11-04 10:53 | Diagnostic Imaging Report ---
INDICATION: Peripheral vascular disease. FINDINGS: The ankle brachial index on the right is 1.14 and on the left is 0.98. IMPRESSION: Normal bilateral ankle-brachial indices. Dictated by: Dictated on workstation # [id number]
== END ==
LOC: RAD 09:00
PROVIDERS: ATTEND Nurse Practitioner Family
DX: I70.213 Atherosclerosis of native arteries of extremities with intermittent claudication, bilateral legs (principal); I10 Essential (primary) hypertension
CPT/HCPCS: 93922

== ENCOUNTER → 2021-11-11 | Outpatient (CLI) | payer MEDICARE ==
--- NOTE | 2021-11-11 11:17 | Diagnostic Imaging Report ---
INDICATION: Claudication bilateral lower extremities. Proximal abdominal aorta measures 2.1 cm AP x 2.1 cm transverse. Midabdominal aorta measures 2.6 cm AP x 3.1 cm transverse. The distal abdominal aorta and iliacs were secured by bowel gas. 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 No other abnormalities are seen. Dictated by: Dictated on workstation # [id number]
--- NOTE | 2021-11-11 15:58 | Diagnostic Imaging Report ---
PROCEDURE: US Bilateral lower extremity arterial. TECHNIQUE: Multiple real-time grayscale images are obtained through both lower extremity arterial systems with color Doppler imaging and color Doppler spectral analysis. INDICATION: Intermittent claudication bilaterally. COMPARISON: 12/07/2018. FINDINGS: Mixed biphasic and triphasic waveforms are seen in the bilateral common femoral, profunda femoris, superficial femoral, popliteal, anterior tibial, posterior tibial, and dorsalis pedis arteries. No elevated flow velocities or focal visualized stenosis is seen in the bilateral lower extremity arterial systems. There is scattered atherosclerotic plaque in the bilateral lower extremity arterial systems. IMPRESSION: 1. Normal triphasic and biphasic waveforms in the bilateral lower extremity arterial systems. No focal stenosis or elevated flow velocities. 2. Atherosclerotic plaque scattered throughout the bilateral lower extremity arterial systems. Dictated by: Dictated on workstation # [id number]
== END ==
LOC: RAD 09:00
PROVIDERS: ATTEND Nurse Practitioner Family
DX: I70.213 Atherosclerosis of native arteries of extremities with intermittent claudication, bilateral legs (principal)
CPT/HCPCS: 76775; 93925

== ENCOUNTER 2021-11-27 14:42 | Outpatient (RCR) | payer MEDICARE | END 2021-11-28 | disposition home or self-care (01) | LOC: CR 14:42 | PROVIDERS: ATTEND Internal Medicine Cardiovascular Disease | DX: Z29.8 Encounter for other specified prophylactic measures (principal); Z95.5 Presence of coronary angioplasty implant and graft | CPT/HCPCS: 93798 ==

== ENCOUNTER 2021-12-27 08:47 | Outpatient (RCR) | payer MEDICARE | END 2021-12-29 | disposition home or self-care (01) | LOC: CR 08:47 | PROVIDERS: ATTEND Internal Medicine Cardiovascular Disease | DX: Z29.8 Encounter for other specified prophylactic measures (principal); Z98.61 Coronary angioplasty status | CPT/HCPCS: 93798 ==

== ENCOUNTER 2022-01-23 09:29 | Emergency (ER) | payer MEDICARE ==
[~2022-01-23] VITALS: Ht 170 cm; Wt 95.2 kg
[2022-01-23 10:12] LABS: BASOPHILS # (AUTO) 0.1 10^3/uL (0.0-0.1); BASOPHILS % (AUTO) 1 % (0-10); MEAN CORPUSCULAR HEMOGLOBIN 29 pg (25-34)
[2022-01-23 10:14] LABS: EOSINOPHILS # (AUTO) 0.3 10^3/uL (0.0-0.3); EOSINOPHILS % (AUTO) 6 % (0-10); HEMATOCRIT 38 % (35-52); LYMPHOCYTES # (AUTO) 1.5 10^3/uL (1.0-4.0); LYMPHOCYTES % (AUTO) 30 % (12-44); MEAN CORPUSCULAR HGB CONC 32 g/dL (32-36); MEAN CORPUSCULAR VOLUME 90 fL (80-99); MEAN PLATELET VOLUME 11.5 fL (9.0-12.2); MONOCYTES # (AUTO) 0.4 10^3/uL (0.0-1.0); MONOCYTES % (AUTO) 8 % (0-12); NEUTROPHILS # (AUTO) 2.7 10^3/uL (1.8-7.8); NEUTROPHILS % (AUTO) 54 % (42-75); WHITE BLOOD COUNT 4.9 10^3/uL (4.3-11.0)
--- NOTE | 2022-01-23 10:14 | ED Chest Pain ---
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 Source: patient Exam Limitations: no limitations History of Present Illness Date Seen by Provider: Jan 23, 2022 Time Seen by Provider: 09:50 Initial Comments Here with central chest pain that radiates to her entire jaw. Onset at about 9 AM and lasted about 15 minutes and has resolved. Denies nausea, vomiting, weakness or breathing problems associated with this. Does have history of cardiac disease and has had a stent placed here 2 months ago. She is on Plavix and aspirin but has not had aspirin today. Arrives with her daughter. Follows with Dr Diaz. Timing/Duration: 1 hour, gone now Severity/Quality: moderate, aching Location: central Radiation: jaw Activities at Onset: none Prior CP/Workup: cardiac cath, echocardiography, stress test Modifying Factors: improves with rest ASA po TABLE GAMES DEALER: No NTG SL TABLE GAMES DEALER: No Associated Symptoms: No abdominal pain, No back pain, No nausea/vomiting, No shortness of breath, No weakness Allergies and Home Medications Allergies Coded Allergies: phenazopyridine (Verified Allergy, Unknown, 09/11/20) levofloxacin (Verified Adverse Reaction, Mild, N/V, 09/11/20) Patient Home Medication List Home Medication List Reviewed: Yes Acetaminophen (Tylenol Extra Strength) 500 Mg Tablet, 500-1,000 MG PO Q8H PRN for PAIN-MILD (1-4), (Reported) Entered as Reported by: YANE STALEY on 04/16/20 1526 Albuterol Sulfate (Ventolin Hfa) 1 Puff Puff, 2 PUFF INH Q6H PRN for SHORTNESS OF BREATH, (Reported) Entered as Reported by: YANE STALEY on 04/12/20 1009 Amlodipine Besylate (Amlodipine Besylate) 10 Mg Tablet, 5 MG PO DAILY, (Reported) Entered as Reported by: YANE STALEY on 04/12/20 1009 Aspirin (Aspirin EC) 81 Mg Tablet.dr, 81 MG PO DAILY, (Reported) Entered as Reported by: MELIDA WIN on 09/10/21 0729 Atorvastatin Calcium (Lipitor) 40 Mg Tablet, 40 MG PO HS Prescribed by: TEJAL RINCON on 09/11/21 0806 Budesonide/Formoterol Fumarate (Symbicort 160-4.5 Mcg Inhaler) 10.2 Gm Hfa.aer.ad, 2 PUFF IH BID, (Reported) Entered as Reported by: YANE STALEY on 04/12/20 100 Bupropion HCl (Wellbutrin Xl) 150 Mg Tab.er.24h, 150 MG PO DAILY, (Reported) Entered as Reported by: YANE STALEY on 04/12/20 100 Cholecalciferol (Vitamin D3) (Vitamin D3) 50 Mcg Capsule, 50 MCG PO DAILY, (Re ported) Entered as Reported by: YANE STALEY on 04/12/20 100 Clopidogrel Bisulfate (Clopidogrel) 75 Mg Tablet, 75 MG PO DAILY Prescribed by: TEJAL RINCON on 09/11/21 0806 Docusate Sodium (Docusate Sodium) 100 Mg Tablet, 200 MG PO BID, (Reported) Entered as Reported by: YANE STALEY on 09/10/21 120 Famotidine (Acid Pump Station Operator (FAMOTIDINE)) 20 Mg Tablet, 20 MG PO BID, (Reported) Entered as Reported by: MELIDA WIN on 09/10/21 07 Furosemide (Furosemide) 20 Mg Tablet, 20 MG PO DAILY PRN for EDEMA, (Reported) Entered as Reported by: MELIDA WIN on 09/10/21 0729 Glipizide (Glipizide) 5 Mg Tablet, 5 MG PO BID WITH MEALS, (Reported) Entered as Reported by: YANE STALEY on 04/12/20 100 Losartan Potassium (Losartan Potassium) 50 Mg Tablet, 50 MG PO BID, (Reported) Entered as Reported by: BEBETO PÉREZ on 07/20/15 0826 Metoprolol Tartrate (Metoprolol Tartrate) 100 Mg Tablet, 100 MG PO BID, (Re ported) Entered as Reported by: YANE STALEY on 04/12/20 100 Modafinil (Modafinil) 200 Mg Tablet, 200 MG PO DAILY, (Reported) Entered as Reported by: MELIDA WIN on 09/10/21 0729 Multivitamin (Multivitamin) 1 Each Tablet, 1 EACH PO DAILY, (Reported) Entered as Reported by: YANE STALEY on 09/10/21 1207 Potassium Chloride (Potassium Chloride) 10 Meq Tab.er.prt, 10 MEQ PO DAILY PRN for WHEN TAKING FUROSEMIDE, (Reported) Entered as Reported by: MELIDA WIN on 09/10/21 0729 Pramipexole Di-HCl (Mirapex) 0.5 Mg Tablet, 0.5 MG PO BID, (Reported) Entered as Reported by: BEBETO PÉREZ on 07/20/15 0826 Pregabalin (Lyrica) 75 Mg Capsule, 75 MG PO Q12H, (Reported) Entered as Reported by: YANE STALEY on 04/12/20 1009 Ubidecarenone/Vit E/Vit E Mix (Co-Enzyme Q10 100 mg Softgel) 1 Each Capsule, 1 EACH PO DAILY, (Reported) Entered as Reported by: YANE STALEY on 04/12/20 1009 Review of Systems Review of Systems Constitutional: see HPI; No chills, No fever Respiratory: Denies Cough, Denies Shortness of Air Cardiovascular: Chest Pain; Denies Palpitations Gastrointestinal: Denies Abdominal Pain, Denies Nausea, Denies Vomiting Genitourinary: No Symptoms Reported Musculoskeletal: no symptoms reported Psychiatric/Neurological: Denies Anxiety, Denies Headache All Other Systems Reviewed Negative Unless Noted: Yes Past Edfrtuh-Cxssya-Kpoxdv Hx Patient Social History Tobacco Use?: No Smoking Status: Former Smoker Substance use?: No Alcohol Use?: No Pt feels they are or have been: No Immunizations Up To Date Tetanus Booster (TDap): Unknown First/Initial COVID19 Vaccinat: 07/06/20 Second COVID19 Vaccination Tino: 08/03/20 Third COVID19 Vaccination Date: 07/06/20 Seasonal Allergies Seasonal Allergies: No Past Medical History Surgery/Hospitalization HX: PMH: HTN, TRIPLE A, CAD Surgeries: Yes (HYST,L ROT.CUFF,BLADDER SLING X2, BILAT SACROILIAC JOINT INJECTION) Bladder Surgery, Orthopedic Respiratory: Yes Asthma, Sleep Apnea, COPD Currently Using CPAP: Yes Currently Using BIPAP: No Cardiac: Yes High Cholesterol, Hypertension Neurological: No Neuropathy Reproductive Disorders: No Female Reproductive Disorders: Denies Sexually Transmitted Disease: No HIV/AIDS: No Genitourinary: No Kidney Stones Gastrointestinal: Yes Gastroesophageal Reflux, Chronic Constipation, Irritable Bowel Musculoskeletal: No Chronic Back Pain Endocrine: Yes Diabetes, 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 0.0oz. 83.441212en; 32.00 BMI Method: General Appearance: No Apparent Distress, WD/WN HEENT: PERRL/EOMI, Pharynx Normal Neck: Non Tender, Supple Respiratory: Lungs Clear, Normal Breath Sounds Cardiovascular: Regular Rate, Rhythm, No Murmur Gastrointestinal: Non Tender, Soft Extremity: Normal Range of Motion, Non Tender Neurologic/Psychiatric: Alert, Oriented x3 Skin: Normal Color, Warm/Dry Progress/Results/Core Measures Results/Orders Lab Results Laboratory Tests Test 01/23/22 09:55 01/23/22 12:13 Range/Units White Blood Count 4.9 4.3-11.0 10^3/uL Red Blood Count 4.16 3.80-5.11 10^6/uL Hemoglobin 12.0 11.5-16.0 g/dL Hematocrit 38 35-52 % Mean Corpuscular Volume 90 80-99 fL Mean Corpuscular Hemoglobin 29 25-34 pg Mean Corpuscular Hemoglobin Concent 32 32-36 g/dL Red Cell Distribution Width 15.0 H 10.0-14.5 % Platelet Count 140 130-400 10^3/uL Mean Platelet Volume 11.5 9.0-12.2 fL Immature Granulocyte % (Auto) 1 % Neutrophils (%) (Auto) 54 42-75 % Lymphocytes (%) (Auto) 30 12-44 % Monocytes (%) (Auto) 8 0-12 % Eosinophils (%) (Auto) 6 0-10 % Basophils (%) (Auto) 1 0-10 % Neutrophils # (Auto) 2.7 1.8-7.8 10^3/uL Lymphocytes # (Auto) 1.5 1.0-4.0 10^3/uL Monocytes # (Auto) 0.4 0.0-1.0 10^3/uL Eosinophils # (Auto) 0.3 0.0-0.3 10^3/uL Basophils # (Auto) 0.1 0.0-0.1 10^3/uL Immature Granulocyte # (Auto) 0.0 0.0-0.1 10^3/uL Percent Immature Platelet Fraction 5.1 0.0-7.6 % Prothrombin Time 13.2 12.2-14.7 SEC INR Comment 1.0 0.8-1.4 Activated Partial Thromboplast Time 26 24-35 SEC Sodium Level 144 135-145 MMOL/L Potassium Level 4.5 3.6-5.0 MMOL/L Chloride Level 107 98-107 MMOL/L Carbon Dioxide Level 24 21-32 MMOL/L Anion Gap 13 5-14 MMOL/L Blood Urea Nitrogen 21 H 7-18 MG/DL Creatinine 1.32 H 0.60-1.30 MG/DL Estimat Glomerular Filtration Rate 42 BUN/Creatinine Ratio 16 Glucose Level 140 H 70-105 MG/DL Calcium Level 9.5 8.5-10.1 MG/DL Corrected Calcium 9.5 8.5-10.1 MG/DL Magnesium Level 2.1 1.6-2.4 MG/DL Total Bilirubin 0.6 0.1-1.0 MG/DL Aspartate Amino Transf (AST/SGOT) 29 5-34 U/L Alanine Aminotransferase (ALT/SGPT) 26 0-55 U/L Alkaline Phosphatase 104 40-136 U/L Myoglobin 52.7 10.0-92.0 NG/ML Troponin I < 0.028 < 0.028 <0.028 NG/ML Total Protein 6.7 6.4-8.2 GM/DL Albumin 4.0 3.2-4.5 GM/DL My Orders Orders - LUCY GILMORE MD Ekg Tracing (01/23/22 09:32) Cbc With Automated Diff (01/23/22 10:04) Magnesium (01/23/22 10:04) Chest 1 View, Ap/Pa Only (01/23/22 10:04) Comprehensive Metabolic Panel (01/23/22 10:04) Myoglobin Serum (01/23/22 10:04) Protime With Inr (01/23/22 10:04) Partial Thromboplastin Time (01/23/22 10:04) O2 (01/23/22 10:04) Monitor-Rhythm Ecg Trace Only (01/23/22 10:04) Lipid Panel (01/24/22 06:00) Ed Iv/Invasive Line Start (01/23/22 10:04) Troponin I [place] (01/23/22 10:04) Aspirin Chewable Tablet (Baby Aspirin Ch (01/23/22 10:15) Troponin I [place] (01/23/22 12:05) Medications Given in ED Current Medications Medications Dose Ordered Sig/Jeramy Route Start Time Stop Time Status Last Admin Dose Admin Aspirin 324 mg ONCE ONCE PO 01/23/22 10:15 01/23/22 10:16 DC 01/23/22 10:25 324 MG Vital Signs/I&O 01/23/22 09:39 Temp 36.3 Pulse 67 Resp 22 B/P (MAP) 145/81 (102) Pulse Ox 98 Blood Pressure Mean: 102 Progress Progress Note : Progress Note Seen and evaluated. Chest pain protocol initiated. IV, labs, EKG and chest x- ray ordered. ASA 324 mg p.o. ordered. Monitor patient. Patient is currently chest pain-free. I did review previous EKG and cardiology note regarding heart cath with single-vessel that was stented in August. 1205: Patient remains chest pain-free. We will repeat troponin now as initial set was negative. Currently no indications for concern on lab or other evaluation. We will repeat troponin. Monitor patient. 1300: Patient remains chest pain-free. Repeat troponin negative. Discharged home with return precautions and suggestion to follow-up with Dr Diaz. Patient and family verbalized understanding of instructions and agreement with plan. Initial ECG Impression Date: Jan 23, 2022 Initial ECG Impression Time: 09:38 Initial ECG Rate: 64 Initial ECG Rhythm: Normal Sinus Comment Sinus rhythm with normal axis. No evidence of ST elevation IN. Unchanged from previous of 11/16/2017. Interpreted by me. Diagnostic Imaging Diagonstic Imaging: Xray Plain Films/CT/US/NM/MRI: chest Comments [facility] [place], [place] NAME: JOESPH [facility]ANSEN [facility] REC#: [id number] PT STATUS: REG ER : 1950 PHYSICIAN: LUCY GILMORE MD ADMIT DATE: 01/23/22/ER Draft Date of Exam:01/23/22 CHEST 1 VIEW, AP/PA ONLY Indication: Chest pain Portable chest 10:27 AM Heart size and pulmonary vascularity are normal. Lungs are clear. There are no effusions or pneumothoraces. IMPRESSION: No acute abnormalities in the chest. Dictated on workstation # [id number] Dict: 01/23/22 1039 Trans: 01/23/22 1040 [facility] [id number] Interpreted by: LUCY TEJADA MD Electronically signed by: Departure Impression Primary Impression: Chest pain Qualified Codes: R07.9 - Chest pain, unspecified Disposition: HOME, SELF-CARE Condition: Improved Departure-Patient Inst. Decision time for Depature: 13:05 Referrals: ANA MONTOYA MD (PCP/Family) Primary Care Physician Patient Instructions: Chest Pain (DC), Heart Healthy Diet Add. Discharge Instructions: All discharge instructions reviewed with patient and/or family. Voiced understanding. Continue home medications as previously prescribed. Follow-up with Dr Diaz within 1 week for recheck and further evaluation. Call office for appointment. Return for worse pain, fever, vomiting, weakness, breathing problems or other concerns as needed. Copy Copies To 1: TONIE DIAZ MD FACP FACC CCDS Copies To 2: ANA MONTOYA MD, TIMOTHY D MD Jan 23, 2022 10:14
[2022-01-23] MEDS ORDERED: ASPIRIN 81 MG CHEW (CHILDREN'S ASA) PO ONE (10:15)
[2022-01-23 10:18] LABS: PLATELET COUNT 140 10^3/uL (130-400); PROTHROMBIN TIME PATIENT 13.2 SEC (12.2-14.7)
[2022-01-23 10:24] LABS: POTASSIUM 4.5 MMOL/L (3.6-5.0)
[2022-01-23 10:25] LABS: CALCIUM 9.5 MG/DL (8.5-10.1)
[2022-01-23 10:26] LABS: TOTAL PROTEIN 6.7 GM/DL (6.4-8.2)
[2022-01-23 10:28] LABS: BILIRUBIN,TOTAL 0.6 MG/DL (0.1-1.0)
[2022-01-23 10:29] LABS: CREATININE SERUM 1.32 MG/DL (0.60-1.30)
[2022-01-23 10:32] LABS: MAGNESIUM 2.1 MG/DL (1.6-2.4)
--- NOTE | 2022-01-23 10:41 | Diagnostic Imaging Report ---
Indication: Chest pain Portable chest 10:27 AM Heart size and pulmonary vascularity are normal. Lungs are clear. There are no effusions or pneumothoraces. IMPRESSION: No acute abnormalities in the chest. Dictated by: Dictated on workstation # [id number]
[2022-01-23 13:38] VITALS: BP 143/69
== END 2022-01-23 13:38 | disposition home or self-care (01) ==
LOC: EDUNIT# 09:29 → ER 09:31
DX: R07.9 Chest pain, unspecified (principal); I25.10 Atherosclerotic heart disease of native coronary artery without angina pectoris; G47.30 Sleep apnea, unspecified; Z95.5 Presence of coronary angioplasty implant and graft; Z87.891 Personal history of nicotine dependence; Z99.89 Dependence on other enabling machines and devices; Z79.82 Long term (current) use of aspirin; Z79.02 Long term (current) use of antithrombotics/antiplatelets
CPT/HCPCS: 36415; 71045; 80053; 83735; 83874; 84484; 85025; 85610; 85730; 93005; 93041

== ENCOUNTER 2022-01-27 14:00 | Outpatient (RCR) | payer MEDICARE ==
[~2022-01-27 14:00] MED LIST changes: +POTA-177 PO; -POTA10TA37 PO
== END 2022-01-29 | disposition home or self-care (01) ==
LOC: CR 14:00
PROVIDERS: ATTEND Internal Medicine Cardiovascular Disease
DX: Z29.8 Encounter for other specified prophylactic measures (principal); Z98.61 Coronary angioplasty status
CPT/HCPCS: 93798

== ENCOUNTER → 2022-02-28 | Outpatient (RCR) | payer MEDICARE | END | disposition home or self-care (01) | LOC: CR3 01-29 06:30 | PROVIDERS: ATTEND Internal Medicine Cardiovascular Disease | DX: Z29.8 Encounter for other specified prophylactic measures (principal) ==

== ENCOUNTER → 2022-04-01 | Outpatient (CLI) | payer MEDICARE ==
--- NOTE | 2022-04-01 13:54 | Diagnostic Imaging Report ---
INDICATION: Postmenopausal screening COMPARISON: 12/09/2007 FINDINGS: AP Spine L1-L4: [BMD (g/cm2): na] [T-Score: na] [Z-Score: na] [BMD Previous: na] [BMD % Change: na] LT Hip Neck: [BMD (g/cm2): 1.078] [T-Score: 0.3] [Z-Score: 1.4] LT Hip Total: [BMD (g/cm2):1.163] [T-Score:1.2] [Z-Score: 2.1] [BMD Previous: 1.024] [BMD % Change: 13.6] RT Hip Neck: [BMD (g/cm2):0.909] [T-Score:-0.9] [Z-Score:0.2] RT Hip Total: [BMD (g/cm2):1.096] [T-score:0.7] [Z-Score:1.6] [BMD Previous:1.030] [BMD % Change:6.4] *Indicates significant change from prior examination based on 95% confidence level. World Health Organization criteria for BMD interpretation classify patients as Normal (T-score at or above -1.0), Osteopenic (T-score between -1.0 and -2.5) or Osteoporotic (T-score at or below -2.5). LIMITATIONS AND MODIFICATION: None. FRACTURE RISK (FRAX SCORE): The ten year probability of (%): Major Osteoporotic Fracture: [na] Hip Fracture: [na] IMPRESSION: 1. Normal bone mineral density. 2. There has been a statistically significant increase in BMD since prior exam, detailed above. 3. See below National Osteoporosis Foundation guidelines on when to potentially initiate pharmacologic therapy. Based on the National Osteoporosis Foundation Guidelines, pharmacologic treatment should be initiated in any of the following, unless clinical conditions suggest otherwise: * Any patient with prior fragility fracture of the hip or vertebrae. A spine fracture indicates 5X risk for subsequent spine fracture and 2X risk for subsequent hip fracture. * Osteoporosis (T-score <-2.5). * Postmenopausal women and men age 50 and older with low bone mass/osteopenia (T-score between -1.0 and -2.5) by DXA and 10-year major osteoporotic fracture greater than 20% or a 10-year probability of hip fracture greater than 3%. These fracture risks are supplied above in the FRAX score, if applicable. * Clinician judgement and/or patient preferences may indicate treatment for people with 10-year fracture probabilities above or below these levels. Dictated by: Dictated on workstation # [id number]
--- NOTE | 2022-04-01 16:11 | Diagnostic Imaging Report ---
INDICATION: Routine screening. COMPARISON: 06/25/2020 and 03/27/2017. TECHNIQUE: 2D and 3D bilateral screening mammography was performed with CAD. FINDINGS: Both breasts remain heterogeneously dense, limiting the sensitivity of mammography. There are benign calcifications throughout both breasts. Rounded masses in both breasts are again noted, consistent with benign etiologies. No definite spiculated mass or malignant-appearing microcalcifications are seen. The axillae are unremarkable. IMPRESSION: No mammographic features suspicious for malignancy are identified. ACR BI-RADS Category 2: Benign findings. Result letter will be mailed to the patient. Note: At least 10% of breast cancer is not imaged by mammography. Dictated by: Dictated on workstation # [id number]
== END ==
LOC: RAD 09:19
PROVIDERS: ATTEND Nurse Practitioner Family
DX: Z12.31 Encounter for screening mammogram for malignant neoplasm of breast (principal); Z78.0 Asymptomatic menopausal state
CPT/HCPCS: 77063; 77067; 77080

== ENCOUNTER 2022-04-28 14:50 | Outpatient (RCR) | payer MEDICARE | END 2022-04-30 | disposition home or self-care (01) | LOC: CR3 14:50 | PROVIDERS: ATTEND Internal Medicine Cardiovascular Disease | DX: Z29.8 Encounter for other specified prophylactic measures (principal) ==

== ENCOUNTER 2022-06-23 06:44 | Outpatient (RCR) | payer MEDICARE | END 2022-06-30 | disposition home or self-care (01) | LOC: CR3 06:44 | PROVIDERS: ATTEND Internal Medicine Cardiovascular Disease | DX: Z29.8 Encounter for other specified prophylactic measures (principal) ==

== ENCOUNTER 2022-10-01 14:52 | Emergency (ER) | payer MEDICARE ==
[~2022-10-01] VITALS: Ht 170 cm; Wt 99.0 kg
--- NOTE | 2022-10-01 15:26 | ED General ---
General Chief Complaint: Neurological Problems Stated Complaint: STROKE-LIKE SYMPTOMS Nursing Triage Note: ARRIVED VIA AMB TO ROOM 06 WITH STROKE LIKE SX ACCORDING TO FAMILY. CONFUSION X2 WEEKS THAT IS WORSE TODAY. FAMILY STATES SHE HAS BEEN DRAGGING HER RIGHT LEG AND TROUBLE SPEAKING ALSO Source of Information: Patient, Family Exam Limitations: No Limitations History of Present Illness Date Seen by Provider: October 01, 2022 Time Seen by Provider: 15:08 Initial Comments This 72-year-old woman presents to the emergency room accompanied by her son with concerns about intermittent confusion, intermittent hallucinations, and weakness of the left lower extremity. These symptoms have been ongoing for at least 3 weeks. She has not seen her primary care provider about these problems yet. She has been dragging her left foot for at least a week and is using a walker. She also complains of lower extremity swelling. She is noted to be audibly wheezing on exam. She does have history of COPD and sleep apnea. She reports compliance with her CPAP. Her primary care provider is Dr. Hayes. Allergies and Home Medications Allergies Coded Allergies: phenazopyridine (Verified Allergy, Unknown, 09/11/20) levofloxacin (Verified Adverse Reaction, Mild, N/V, 09/11/20) Patient Home Medication List Home Medication List Reviewed: Yes Acetaminophen (Tylenol Extra Strength) 500 Mg Tablet, 500-1,000 MG PO Q8H PRN for PAIN-MILD (1-4), (Reported) Entered as Reported by: YANE STALEY on 04/16/20 1526 Albuterol Sulfate (Ventolin Hfa) 1 Puff Puff, 2 PUFF INH Q6H PRN for SHORTNESS OF BREATH, (Reported) Entered as Reported by: YANE STALEY on 04/12/20 1009 Albuterol Sulfate (Albuterol Sulfate) 2.5 Mg/3 Ml (0.083 %) Vial.neb, 2.5 MG INH Q4H PRN for WHEEZING Prescribed by: JUAN LUIS SIM on 10/01/22 1753 Amlodipine Besylate (Amlodipine Besylate) 10 Mg Tablet, 5 MG PO DAILY, (Reported) Entered as Reported by: YANE STALEY on 04/12/20 1009 Aspirin (Aspirin EC) 81 Mg Tablet., 81 MG PO DAILY, (Reported) Entered as Reported by: MELIDA WNI on 09/10/21 0729 Atorvastatin Calcium (Lipitor) 40 Mg Tablet, 40 MG PO HS Prescribed by: TEJAL RINCON on 09/11/21 08 Budesonide/Formoterol Fumarate (Symbicort 160-4.5 Mcg Inhaler) 10.2 Gm Hfa.aer.ad, 2 PUFF IH BID, (Reported) Entered as Reported by: YANE STALEY on 04/12/20 100 Bupropion HCl (Wellbutrin Xl) 150 Mg Tab.er.24h, 150 MG PO DAILY, (Reported) Entered as Reported by: YANE STALEY on 04/12/20 100 Cefdinir (Cefdinir) 300 Mg Capsule, 300 MG PO BID Prescribed by: JUAN LUIS SIM on 10/01/22 175 Cholecalciferol (Vitamin D3) (Vitamin D3) 50 Mcg Capsule, 50 MCG PO DAILY, (Reported) Entered as Reported by: YANE STALEY on 04/12/20 100 Clopidogrel Bisulfate (Clopidogrel) 75 Mg Tablet, 75 MG PO DAILY Prescribed by: TEJAL RINCON on 09/11/21 08 Docusate Sodium (Docusate Sodium) 100 Mg Tablet, 200 MG PO BID, (Reported) Entered as Reported by: YANE STALEY on 09/10/21 1207 Famotidine (Acid Supervisor Cab (FAMOTIDINE)) 20 Mg Tablet, 20 MG PO BID, (Reported) Entered as Reported by: MELIDA WIN on 09/10/21 07 Furosemide (Furosemide) 20 Mg Tablet, 20 MG PO DAILY PRN for EDEMA, (Reported) Entered as Reported by: MELIDA WIN on 09/10/21 0729 Glipizide (Glipizide) 5 Mg Tablet, 5 MG PO BID WITH MEALS, (Reported) Entered as Reported by: YANE STALEY on 04/12/20 100 Losartan Potassium (Losartan Potassium) 50 Mg Tablet, 50 MG PO BID, (Reported) Entered as Reported by: BEBETO PÉREZ on 07/20/15 0826 Metoprolol Tartrate (Metoprolol Tartrate) 100 Mg Tablet, 100 MG PO BID, (Reported) Entered as Reported by: YANE STALEY on 04/12/20 100 Modafinil (Modafinil) 200 Mg Tablet, 200 MG PO DAILY, (Reported) Entered as Reported by: MELIDA WIN on 09/10/21 0729 Multivitamin (Multivitamin) 1 Each Tablet, 1 EACH PO DAILY, (Reported) Entered as Reported by: YANE STALEY on 09/10/21 1207 Potassium Chloride (Potassium Chloride) 10 Meq Tab.er.prt, 10 MEQ PO DAILY PRN for WHEN TAKING FUROSEMIDE, (Reported) Entered as Reported by: MELIDA WIN on 09/10/21 0729 Pramipexole Di-HCl (Mirapex) 0.5 Mg Tablet, 0.5 MG PO BID, (Reported) Entered as Reported by: BEBETO PÉREZ on 07/20/15 0826 Prednisone (Prednisone) 20 Mg Tab, 40 MG PO DAILY Prescribed by: JUAN LUIS SIM on 10/01/22 1753 Pregabalin (Lyrica) 75 Mg Capsule, 75 MG PO Q12H, (Reported) Entered as Reported by: YANE STALEY on 04/12/20 1009 Ubidecarenone/Vit E/Vit E Mix (Co-Enzyme Q10 100 mg Softgel) 1 Each Capsule, 1 EACH PO DAILY, (Reported) Entered as Reported by: YANE STALEY on 04/12/20 1009 Review of Systems Review of Systems Constitutional: no symptoms reported; No fever EENTM: no symptoms reported Respiratory: no symptoms reported Cardiovascular: edema Gastrointestinal: no symptoms reported Genitourinary: no symptoms reported : No Musculoskeletal: no symptoms reported Skin: no symptoms reported Psychiatric/Neurological: See HPI Hematologic/Lymphatic: No Symptoms Reported Immunological/Allergic: no symptoms reported Past Zownyzi-Yixmks-Bmrccg Hx Patient Social History Tobacco Use?: Yes Tobacco type used: Cigarettes Smoking Status: Former Smoker Substance use?: No Alcohol Use?: Yes Alcohol type: Wine Alcohol Frequency: Rarely Immunizations Up To Date Tetanus Booster (TDap): Unknown First/Initial COVID19 Vaccinat: 07/06/20 Second COVID19 Vaccination Tino: 08/03/20 Third COVID19 Vaccination Date: 07/06/20 COVID19 Vaccine 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 Seasonal Allergies Seasonal Allergies: No Past Medical History Surgery/Hospitalization HX: PMH: HTN, TRIPLE A, CAD Surgeries: Yes (HYST,L ROT.CUFF,BLADDER SLING X2, BILAT SACROILIAC JOINT INJECTION) Bladder Surgery, Hysterectomy, Orthopedic Respiratory: Yes Asthma, Sleep Apnea, COPD Currently Using CPAP: Yes Currently Using BIPAP: No Cardiac: Yes Coronary Artery Disease, High Cholesterol, Hypertension Neurological: No Neuropathy Reproductive Disorders: No Female Reproductive Disorders: Denies Sexually Transmitted Disease: No HIV/AIDS: No Genitourinary: Yes Kidney Stones Gastrointestinal: Yes Gastroesophageal Reflux, Chronic Constipation, Irritable Bowel Musculoskeletal: Yes Chronic Back Pain Endocrine: Yes Diabetes, Non-Insulin dep HEENT: Yes (BLURRY VISION-DRY EYES) Cataract Loss of Vision: Bilateral Hearing Impairment: Denies Cancer: No Psychosocial: Yes Anxiety, Depression Integumentary: No Blood Disorders: No Adverse Reaction/Blood Tranf: No Family Medical History Cardiovascular disease 19 MOTHER G8 SISTER Hypertension 19 MOTHER Physical Exam Vital Signs Vital Signs - First Documented 10/01/22 14:56 Temp 36.3 Pulse 82 Resp 16 B/P (MAP) 141/66 (91) Pulse Ox 94 O2 Delivery Room Air Capillary Refill : Less Than 3 Seconds Height, Weight, BMI Height: 5'7.00" Weight: 183lbs. 0.0oz. 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 Norm as Tested, Motor Weakness (4/5 strength of the proximal left leg muscles) Skin: Normal Color, Warm/Dry Progress/Results/Core Measures Suspected Sepsis SIRS Temperature: Pulse: 82 Respiratory Rate: 16 Laboratory Tests 10/01/22 15:26: White Blood Count 5.4 Blood Pressure 141 /66 Mean: 91 Laboratory Tests 10/01/22 15:26: Creatinine 1.41H, Platelet Count 141, Total Bilirubin 0.4 Results/Orders Lab Results Laboratory Tests Test 10/01/22 15:02 10/01/22 15:26 10/01/22 15:29 10/01/22 15:30 Range/Units Glucometer 143 H 70-110 MG/DL White Blood Count 5.4 4.3-11.0 10^3/uL Red Blood Count 4.15 3.80-5.11 10^6/uL Hemoglobin 11.4 L 11.5-16.0 g/dL Hematocrit 37 35-52 % Mean Corpuscular Volume 89 80-99 fL Mean Corpuscular Hemoglobin 28 25-34 pg Mean Corpuscular Hemoglobin Concent 31 L 32-36 g/dL Red Cell Distribution Width 16.4 H 10.0-14.5 % Platelet Count 141 130-400 10^3/uL Mean Platelet Volume 11.0 9.0-12.2 fL Immature Granulocyte % (Auto) 2 % Neutrophils (%) (Auto) 44 42-75 % Lymphocytes (%) (Auto) 36 12-44 % Monocytes (%) (Auto) 7 0-12 % Eosinophils (%) (Auto) 10 0-10 % Basophils (%) (Auto) 1 0-10 % Neutrophils # (Auto) 2.4 1.8-7.8 10^3/uL Lymphocytes # (Auto) 2.0 1.0-4.0 10^3/uL Monocytes # (Auto) 0.4 0.0-1.0 10^3/uL Eosinophils # (Auto) 0.5 H 0.0-0.3 10^3/uL Basophils # (Auto) 0.1 0.0-0.1 10^3/uL Immature Granulocyte # (Auto) 0.1 0.0-0.1 10^3/uL Sodium Level 144 135-145 MMOL/L Potassium Level 4.2 3.6-5.0 MMOL/L Chloride Level 107 98-107 MMOL/L Carbon Dioxide Level 24 21-32 MMOL/L Anion Gap 13 5-14 MMOL/L Blood Urea Nitrogen 23 H 7-18 MG/DL Creatinine 1.41 H 0.60-1.30 MG/DL Estimat Glomerular Filtration Rate 39 BUN/Creatinine Ratio 16 Glucose Level 161 H 70-105 MG/DL Calcium Level 9.7 8.5-10.1 MG/DL Corrected Calcium 9.8 8.5-10.1 MG/DL Total Bilirubin 0.4 0.1-1.0 MG/DL Aspartate Amino Transf (AST/SGOT) 14 5-34 U/L Alanine Aminotransferase (ALT/SGPT) 14 0-55 U/L Alkaline Phosphatase 124 40-136 U/L Total Protein 6.6 6.4-8.2 GM/DL Albumin 3.9 3.2-4.5 GM/DL TSH Leonard Testing 1.61 0.35-4.94 UIU/ML Serum Alcohol < 10 <10 MG/DL Blood Gas Puncture Site RT RADIAL Blood Gas Patient Temperature 36.6 Arterial Blood pH 7.38 7.37-7.43 Arterial Blood Partial Pressure CO2 48 H 35-45 MMHG Arterial Blood Partial Pressure O2 72 L 79-93 MMHG Arterial Blood HCO3 28 H 23-27 MMOL/L Arterial Blood Total CO2 29.2 21.0-31.0 MMOL/L Arterial Blood Oxygen Saturation 94 94-100 % Arterial Blood Base Excess 2.8 H -2.5-2.5 MMOL/L Shad Test YES-POS Blood Gas Ventilator Setting NO Blood Gas Inspired Oxygen ROOM AIR Test 10/01/22 16:20 Range/Units Urine Color YELLOW Urine Clarity CLOUDY Urine pH 5.5 5-9 Urine Specific [place] 1.025 H 1.016-1.022 Urine Protein NEGATIVE NEGATIVE Urine Glucose (UA) NEGATIVE NEGATIVE Urine Ketones NEGATIVE NEGATIVE Urine Nitrite POSITIVE H NEGATIVE Urine Bilirubin NEGATIVE NEGATIVE Urine Urobilinogen 0.2 < = 1.0 MG/DL Urine Leukocyte Esterase 1+ H NEGATIVE Urine RBC (Auto) TRACE-I H NEGATIVE Urine RBC 2-5 H /HPF Urine WBC 10-25 H /HPF Urine Squamous Epithelial Cells 2-5 /HPF Urine Crystals NONE /LPF Urine Bacteria LARGE H /HPF Urine Casts NONE /LPF Urine Mucus SMALL H /LPF Urine Culture Indicated YES Urine Opiates Screen NEGATIVE NEGATIVE Urine Oxycodone Screen NEGATIVE NEGATIVE Urine Methadone Screen NEGATIVE NEGATIVE Urine Propoxyphene Screen NEGATIVE NEGATIVE Urine Barbiturates Screen NEGATIVE NEGATIVE Ur Tricyclic Antidepressants Screen NEGATIVE NEGATIVE Urine Phencyclidine Screen NEGATIVE NEGATIVE Urine Amphetamines Screen NEGATIVE NEGATIVE Urine Methamphetamines Screen NEGATIVE NEGATIVE Urine Benzodiazepines Screen NEGATIVE NEGATIVE Urine Cocaine Screen NEGATIVE NEGATIVE Urine Cannabinoids Screen NEGATIVE NEGATIVE Micro Results Microbiology 10/01/22 Urine Culture - Preliminary, Resulted Klebsiella pneumoniae My Orders Orders - JUAN LUIS WALKER MD Cbc With Automated Diff (10/01/22 15:23) Comprehensive Metabolic Panel (10/01/22 15:23) Thyroid Analyzer (10/01/22 15:23) Ua Culture If Indicated (10/01/22 15:23) Ct Head Wo (10/01/22 15:23) Ed Iv/Invasive Line Start (10/01/22 15:23) Ekg Tracing (10/01/22 15:23) Alcohol (10/01/22 15:26) Drug Screen Stat (Urine) (10/01/22 15:26) Arterial Blood Gas (10/01/22 15:40) Albuterol/Ipra Inhalation Soln (Duoneb I (10/01/22 16:30) Svn Small Volume Nebulizer (10/01/22 16:30) Urine Culture (10/01/22 16:20) Ns Iv 500 Ml (Sodium Chloride 0.9%) (10/01/22 17:15) Ceftriaxone Iv/Im (Rocephin Iv/Im) (10/01/22 17:03) Albuterol/Ipra Inhalation Soln (Duoneb I (10/01/22 17:45) Svn Small Volume Nebulizer (10/01/22 17:38) Methylprednisolone Sod Succ (Solu-Medrol (10/01/22 17:45) Medications Given in ED Vital Signs/I&O 10/01/22 10/01/22 10/01/22 14:56 17:56 18:25 Temp 36.3 Pulse 82 83 Resp 16 B/P (MAP) 141/66 (91) 129/65 Pulse Ox 94 99 99 O2 Delivery Room Air Room Air Room Air Capillary Refill : Less Than 3 Seconds Blood Pressure Mean: 91 Point of Care Testing Finger Stick Blood Glucose: 143 Blood Glucose Action Taken: PROVIDER NOTIFIED Progress Note : Progress Note Patient's COPD was treated with DuoNeb and Solu-Medrol. She was hydrated with a normal saline bolus of 500 mL. Labs were obtained and interpreted in their entirety by me personally. She was found to have urinary tract infection on urinalysis with significant pyuria. Toxicology screen was negative. CBC was unremarkable. CMP demonstrated mild hyperglycemia and unchanged chronic kidney disease with elevated creatinine. ABG revealed a mild decrease in PO2 and mild increase in PCO2. The stressed the importance of treating her COPD and compliance with CPAP. CT of the head was obtained to evaluate the left leg weakness. No evidence of hemorrhage or acute/subacute stroke was identified. Patient was ultimately treated for her UTI with Rocephin and directed to outpatient follow-up for further evaluation and treatment. MRI of the head and possibly spine may be appropriate at the discretion of her primary care provider. The leg weakness is a subacute problem that has been present for up to 3 weeks. A stroke activation was therefore not paged and further work-up is deferred to the outpatient setting. Patient additionally complained of insomnia and reported she had used multiple medications. I stressed the importance of CPAP compliance and continued discussion with her primary care provider. Hopefully treatment of the UTI will help her be more comfortable and help her sleep better. ECG Initial ECG Impression Date: October 01, 2022 Initial ECG Impression Time: 15:58 Initial ECG Rate: 76 Initial ECG Rhythm: Normal Sinus Comment Sinus rhythm with no ST elevation or depression. MA interval shortened at 114 ms. No other abnormal intervals or axis deviation Diagnostic Imaging Diagonstic Imaging: CT Plain Films/CT/US/NM/MRI: head Comments NAME: JOESPH CHRISTIANSEN MED REC#: [id number] PT STATUS: REG ER : 1950 PHYSICIAN: JUAN LUIS WALKER MD ADMIT DATE: 10/01/22/ER Signed Date of Exam:10/01/22 CT HEAD WO PROCEDURE: CT head without contrast. TECHNIQUE: Multiple contiguous axial images were obtained through the brain without the use of intravenous contrast. Auto Exposure Controls were utilized during the CT exam to meet ALARA standards for radiation dose reduction. INDICATION: Confusion, worsening in severity, difficulty speaking, and dragging the right leg. COMPARISON: I have no priors for comparison. FINDINGS: There is no focal or generalized cerebral edema. There is mild ventriculomegaly, out of proportion to the degree of sulcation. No periventricular edema. An element of mild normal pressure hydrocephalus however could not be excluded. No hemorrhage and no acute-appearing abnormality is found. The moreno-white matter differentiations are very well maintained. The basilar cisterns are patent. No suspicious white matter pathology. The orbits, sinuses, and calvarium are unremarkable. IMPRESSION: Mild ventriculomegaly but no hemorrhage, edema, or acute-appearing abnormalities. Dictated by: Dictated on workstation # [id number] Dict: 10/01/22 1543 Trans: 10/01/22 1719 [id number] Interpreted by: JACKSON FARMER Electronically signed by: JACKSON FARMER 10/01/22 1719 Departure Impression Primary Impression: Urinary tract infection Qualified Codes: N39.0 - Urinary tract infection, site not specified Additional Impressions: COPD exacerbation Confusion Left leg weakness Insomnia Qualified Codes: G47.00 - Insomnia, unspecified Disposition: 01 HOME, SELF-CARE Condition: Stable Departure-Patient Inst. Decision time for Depature: 17:39 Referrals: ANA HAYES MD (PCP/Family) Primary Care Physician Patient Instructions: Exacerbation of COPD, Urinary Tract Infection, Adult ED Add. Discharge Instructions: Drink plenty of clear liquids to stay well-hydrated. Complete your antibiotics as prescribed. Review urine culture results with Dr. HAYES. Urine culture results may be available as early as Thursday. Please call her office on Thursday morning to check on culture results. Please be seen in Dr. Hayes's office as soon as possible for repeat examination. Use your albuterol nebulizers up to every 4 hours as needed for wheezing and shortness of breath. Take your prednisone early in the day with food or milk. This will help avoid sleep disturbance at night or upset stomach. Please be sure to always use your CPAP anytime you lay down or sleep. Discussed your left leg weakness with Dr. HAYES. No evidence of stroke or mass was seen on your CT scan today. Further studies may be warranted if the problem persists. Use a walker or cane if needed to assist with walking. Return to the emergency room if you have worsening symptoms despite following these instructions. All discharge instructions reviewed with patient and/or family. Voiced understanding. Scripts Albuterol Sulfate (Albuterol Sulfate) 2.5 Mg/3 Ml (0.083 %) Vial.neb 2.5 MG INH Q4H PRN for WHEEZING, #50 EA 1 Refill Prov: JUAN LUIS WALKER MD 10/01/22 Cefdinir (Cefdinir) 300 Mg Capsule 300 MG PO BID, #14 CAP 0 Refills Prov: JUAN LUIS WALKER MD 10/01/22 Prednisone (Prednisone) 20 Mg Tab 40 MG PO DAILY, #6 TAB 0 Refills Prov: JUAN LUIS WALKER MD 10/01/22 Copy Copies To 1: ANA HAYES MD, JOSHUA T MD October 01, 2022 15:26
[2022-10-01 15:29] LABS: BASOPHILS # (AUTO) 0.1 10^3/uL (0.0-0.1); BASOPHILS % (AUTO) 1 % (0-10); EOSINOPHILS # (AUTO) 0.5 10^3/uL (0.0-0.3); EOSINOPHILS % (AUTO) 10 % (0-10); HEMATOCRIT 37 % (35-52); HEMOGLOBIN 11.4 g/dL (11.5-16.0); LYMPHOCYTES % (AUTO) 36 % (12-44); MEAN CORPUSCULAR HEMOGLOBIN 28 pg (25-34); MEAN CORPUSCULAR HGB CONC 31 g/dL (32-36); MEAN CORPUSCULAR VOLUME 89 fL (80-99); MONOCYTES # (AUTO) 0.4 10^3/uL (0.0-1.0); MONOCYTES % (AUTO) 7 % (0-12); NEUTROPHILS # (AUTO) 2.4 10^3/uL (1.8-7.8); NEUTROPHILS % (AUTO) 44 % (42-75); PLATELET COUNT 141 10^3/uL (130-400); WHITE BLOOD COUNT 5.4 10^3/uL (4.3-11.0)
[2022-10-01 15:31] LABS: ALBUMIN 3.9 GM/DL (3.2-4.5); POTASSIUM 4.2 MMOL/L (3.6-5.0)
[2022-10-01 15:33] LABS: CALCIUM 9.7 MG/DL (8.5-10.1)
[2022-10-01 15:34] LABS: TOTAL PROTEIN 6.6 GM/DL (6.4-8.2)
[2022-10-01 15:36] LABS: BILIRUBIN,TOTAL 0.4 MG/DL (0.1-1.0)
[2022-10-01 15:37] LABS: CREATININE SERUM 1.41 MG/DL (0.60-1.30)
--- NOTE | 2022-10-01 15:50 | Diagnostic Imaging Report ---
PROCEDURE: CT head without contrast. TECHNIQUE: Multiple contiguous axial images were obtained through the brain without the use of intravenous contrast. Auto Exposure Controls were utilized during the CT exam to meet ALARA standards for radiation dose reduction. INDICATION: Confusion, worsening in severity, difficulty speaking, and dragging the right leg. COMPARISON: I have no priors for comparison. FINDINGS: There is no focal or generalized cerebral edema. There is mild ventriculomegaly, out of proportion to the degree of sulcation. No periventricular edema. An element of mild normal pressure hydrocephalus however could not be excluded. No hemorrhage and no acute-appearing abnormality is found. The moreno-white matter differentiations are very well maintained. The basilar cisterns are patent. No suspicious white matter pathology. The orbits, sinuses, and calvarium are unremarkable. IMPRESSION: Mild ventriculomegaly but no hemorrhage, edema, or acute-appearing abnormalities. Dictated by: Dictated on workstation # [id number]
[2022-10-01 15:55] LABS: ABG BASE EXCESS 2.8 MMOL/L (-2.5-2.5); ABG OXYGEN SATURATION 94 % (94-100); ABG PCO2 48 MMHG (35-45); ABG PH 7.38 (7.37-7.43); ABG PO2 72 MMHG (79-93); ABG TCO2 29.2 MMOL/L (21.0-31.0); ALLENS TEST YES-POS
[2022-10-01 15:56] LABS: INSPIRED O2 ROOM AIR; PATIENT TEMP 36.6; VENTILATOR NO
[2022-10-01 16:00] LABS: TSH (THYROID ANALYZER) 1.61 UIU/ML (0.35-4.94)
[2022-10-01 16:22] LABS: BILIRUBIN,URINE NEGATIVE (NEGATIVE); CLARITY,URINE CLOUDY; COLOR,URINE YELLOW; GLUCOSE, URINE (UA) NEGATIVE (NEGATIVE); KETONES,URINE NEGATIVE (NEGATIVE); LEUKOCYTE ESTERASE ,URINE 1+ (NEGATIVE); NITRITE,URINE POSITIVE (NEGATIVE); PH,URINE 5.5 (5-9); PROTEIN,URINE NEGATIVE (NEGATIVE)
[2022-10-01] MEDS ORDERED: RT-ALBUTEROL/IPRATROPIUM 3 ML (DUONEB) VIAL INH ONE ×2 (16:30→17:45)
[2022-10-01 16:38] LABS: BACTERIA,URINE LARGE /HPF
[2022-10-01 16:43] LABS: AMPHETAMINE SCREEN, URINE NEGATIVE (NEGATIVE); BARBITURATE SCREEN URINE NEGATIVE (NEGATIVE); BENZODIAZEPINES SCREEN URINE NEGATIVE (NEGATIVE); CANNABINOID SCREEN, URINE NEGATIVE (NEGATIVE); COCAINE SCREEN URINE NEGATIVE (NEGATIVE); METHADONE STAT NEGATIVE (NEGATIVE); OPIATE SCREEN URINE NEGATIVE (NEGATIVE); OXYCODONE STAT NEGATIVE (NEGATIVE); PROPOXYPHENE STAT NEGATIVE (NEGATIVE); TRICYCLIC ANTIDEPRESSANTS SCRE NEGATIVE (NEGATIVE)
[2022-10-01] MEDS ORDERED: cefTRIAXone IV/IM 1,000 MG in NS (IVPB) 50 ML IV STA (17:03)
[2022-10-01] MEDS ORDERED: NS IV 500 ML 500 ML IV ONE (17:15)
[2022-10-01] MEDS ORDERED: methylPREDNISolone 125 MG (Solu-MEDROL) VIAL IVP ONE (17:45)
[2022-10-01] MEDS ORDERED: CEFD300C3 PO (17:53)
[2022-10-01] MEDS ORDERED: ALBU2.5V4 INH (17:53)
[2022-10-01] MEDS ORDERED: PRD20T PO (17:53)
[2022-10-01 18:25] VITALS: BP 129/65
== END 2022-10-01 18:25 | disposition home or self-care (01) ==
LOC: EDUNIT# 14:52 → ER 14:55
DX: R41.0 Disorientation, unspecified (principal); J44.1 Chronic obstructive pulmonary disease with (acute) exacerbation; N39.0 Urinary tract infection, site not specified; G47.00 Insomnia, unspecified; R53.1 Weakness; G47.30 Sleep apnea, unspecified; Z99.89 Dependence on other enabling machines and devices; Z87.891 Personal history of nicotine dependence; Z88.1 Allergy status to other antibiotic agents
CPT/HCPCS: 70450; 80053; 80306; 81000; 82805; 82947; 84443; 85025; 87077; 87088; 93005; 94640; 99285; G0480; 36415; 80320; 87186

== ENCOUNTER → 2022-10-31 | Outpatient (CLI) | payer MEDICARE ==
[~2022-10-31] MED LIST changes: +ALBU2.5V4 INH; +CEFD300C3 PO; +PRD20T PO
== END ==
LOC: LAB 15:10
PROVIDERS: ATTEND Nurse Practitioner Family
DX: M79.662 Pain in left lower leg (principal)
CPT/HCPCS: 36415; 85379

== ENCOUNTER 2022-11-01 12:31 | Emergency (ER) | payer MEDICARE ==
[~2022-11-01] VITALS: Ht 170.1 cm; Wt 99.7 kg
--- NOTE | 2022-11-01 14:11 | ED Lower Extremity ---
General Chief Complaint: Lower Extremity Stated Complaint: LEFT LEG PAIN Nursing Triage Note: PT C/O LEFT BEHIND THE KNEE PAIN OFF AND ON FOR A FEW MONTHS. PT STATES SHE WENT TO URGENT CARE YESTERDAY AND GOT XRAY AND LAB DRAWN. PT STATES SHE RECEIVED A CALL TODAY FROM [facility] STATING TO COME TO THE ER FOR POSSIBLE BLOOD CLOT. Source: patient, other ([facility] Exam Limitations: no limitations History of Present Illness Date Seen by Provider: Nov 01, 2022 Allergies and Home Medications Allergies Coded Allergies: phenazopyridine (Verified Allergy, Unknown, 09/11/20) levofloxacin (Verified Adverse Reaction, Mild, N/V, 09/11/20) Patient Home Medication List Acetaminophen (Tylenol Extra Strength) 500 Mg Tablet, 500-1,000 MG PO Q8H PRN for PAIN-MILD (1-4), (Reported) Entered as Reported by: YANE STALEY on 04/16/20 1526 Albuterol Sulfate (Ventolin Hfa) 1 Puff Puff, 2 PUFF INH Q6H PRN for SHORTNESS OF BREATH, (Reported) Entered as Reported by: YANE STALEY on 04/12/20 1009 Albuterol Sulfate (Albuterol Sulfate) 2.5 Mg/3 Ml (0.083 %) Vial.neb, 2.5 MG INH Q4H PRN for WHEEZING Prescribed by: JUAN LUIS SIM on 10/01/22 1753 Amlodipine Besylate (Amlodipine Besylate) 10 Mg Tablet, 5 MG PO DAILY, (Reported) Entered as Reported by: YANE STALEY on 04/12/20 1009 Aspirin (Aspirin EC) 81 Mg Tablet.dr, 81 MG PO DAILY, (Reported) Entered as Reported by: MELIDA WIN on 09/10/21 0729 Atorvastatin Calcium (Lipitor) 40 Mg Tablet, 40 MG PO HS Prescribed by: TEJAL RINCON on 09/11/21 0806 Budesonide/Formoterol Fumarate (Symbicort 160-4.5 Mcg Inhaler) 10.2 Gm Hfa.aer.ad, 2 PUFF IH BID, (Reported) Entered as Reported by: YANE STALEY on 04/12/20 1009 Bupropion HCl (Wellbutrin Xl) 150 Mg Tab.er.24h, 150 MG PO DAILY, (Reported) Entered as Reported by: YANE STALEY on 04/12/20 100 Cefdinir (Cefdinir) 300 Mg Capsule, 300 MG PO BID Prescribed by: JUAN LUIS SIM on 10/01/22 175 Cholecalciferol (Vitamin D3) (Vitamin D3) 50 Mcg Capsule, 50 MCG PO DAILY, (Reported) Entered as Reported by: YANE STALEY on 04/12/20 100 Clopidogrel Bisulfate (Clopidogrel) 75 Mg Tablet, 75 MG PO DAILY Prescribed by: TEJAL RINCON on 09/11/21 0806 Docusate Sodium (Docusate Sodium) 100 Mg Tablet, 200 MG PO BID, (Reported) Entered as Reported by: YANE STALEY on 09/10/21 120 Famotidine (Acid English Teacher (FAMOTIDINE)) 20 Mg Tablet, 20 MG PO BID, (Reported) Entered as Reported by: MELIDA WIN on 09/10/21 07 Furosemide (Furosemide) 20 Mg Tablet, 20 MG PO DAILY PRN for EDEMA, (Reported) Entered as Reported by: MELIDA WIN on 09/10/21 07 Glipizide (Glipizide) 5 Mg Tablet, 5 MG PO BID WITH MEALS, (Reported) Entered as Reported by: YANE STALEY on 04/12/20 100 Losartan Potassium (Losartan Potassium) 50 Mg Tablet, 50 MG PO BID, (Reported) Entered as Reported by: BEBETO PÉREZ on 07/20/15 0826 Metoprolol Tartrate (Metoprolol Tartrate) 100 Mg Tablet, 100 MG PO BID, (Reported) Entered as Reported by: YANE STALEY on 04/12/20 100 Modafinil (Modafinil) 200 Mg Tablet, 200 MG PO DAILY, (Reported) Entered as Reported by: MELIDA WIN on 09/10/21 07 Multivitamin (Multivitamin) 1 Each Tablet, 1 EACH PO DAILY, (Reported) Entered as Reported by: YANE STALEY on 09/10/21 120 Potassium Chloride (Potassium Chloride) 10 Meq Tab.er.prt, 10 MEQ PO DAILY PRN for WHEN TAKING FUROSEMIDE, (Reported) Entered as Reported by: MELIDA WIN on 4/12/22 0729 Pramipexole Di-HCl (Mirapex) 0.5 Mg Tablet, 0.5 MG PO BID, (Reported) Entered as Reported by: BEBETO PÉREZ on 07/20/15 0826 Prednisone (Prednisone) 20 Mg Tab, 40 MG PO DAILY Prescribed by: JUAN LUIS SIM on 10/01/22 1753 Pregabalin (Lyrica) 75 Mg Capsule, 75 MG PO Q12H, (Reported) Entered as Reported by: YANE STALEY on 04/12/20 1009 Ubidecarenone/Vit E/Vit E Mix (Co-Enzyme Q10 100 mg Softgel) 1 Each Capsule, 1 EACH PO DAILY, (Reported) Entered as Reported by: YANE STALEY on 04/12/20 1009 Past Xxofvva-Zmvbuy-Nuabcr Hx Patient Social History Tobacco Use?: No Substance use?: No Alcohol Use?: No Pt feels they are or have been: No Immunizations Up To Date Tetanus Booster (TDap): Unknown First/Initial COVID19 Vaccinat: yes Second COVID19 Vaccination Tino: yes Third COVID19 Vaccination Date: 07/06/20 Seasonal Allergies Seasonal Allergies: No Past Medical History Surgery/Hospitalization HX: PMH: HTN, TRIPLE A, CAD Surgeries: Yes (HYST,L ROT.CUFF,BLADDER SLING X2, BILAT SACROILIAC JOINT INJECTION) Bladder Surgery, Hysterectomy, Orthopedic Respiratory: Yes Asthma, Sleep Apnea, COPD Currently Using CPAP: Yes Currently Using BIPAP: No Cardiac: Yes Coronary Artery Disease, High Cholesterol, Hypertension Neurological: No Neuropathy Reproductive Disorders: No Female Reproductive Disorders: Denies Sexually Transmitted Disease: No HIV/AIDS: No Genitourinary: Yes Kidney Stones Gastrointestinal: Yes Gastroesophageal Reflux, Chronic Constipation, Irritable Bowel Musculoskeletal: Yes Chronic Back Pain Endocrine: Yes Diabetes, 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 0.0oz. 83.780115lb; 34.00 BMI Method: Progress/Results/Core Measures Results/Orders My Orders Orders - JUAN LUIS WALKER MD Venous Lower Ext Lt (11/01/22 13:14) Vital Signs/I&O 11/01/22 11/01/22 12:44 12:54 Temp 36.5 Pulse 105 Resp 16 B/P (MAP) 118/104 (109) 121/66 (84) O2 Delivery Room Air Blood Pressure Mean: 84 Departure Impression Primary Impression: Left knee pain Qualified Codes: M25.562 - Pain in left knee Additional Impression: Elevated d-dimer Disposition: HOME, SELF-CARE Condition: Improved Departure-Patient Inst. Decision time for Depature: 14:36 Referrals: ANA MONTOYA MD (PCP/Family) Primary Care Physician Patient Instructions: Knee pain Add. Discharge Instructions: There was no evidence of blood clot or Juan's cyst on your ultrasound. Your pain may be related to arthritis changes. You may take Tylenol (acetaminophen) up to 1000 mg every 6 hours as needed. You may try icing in 20-minute intervals. Elevating your feet may also be helpful. You may use ohho-job-hczpuhg topical treatments as well such as lidocaine creams or patches. Discuss further treatment of your pain with your primary care provider. If necessary, you could seek referral to an orthopedic surgeon as well. Return to care if you have worsening symptoms despite following these instructions. All discharge instructions reviewed with patient and/or family. Voiced understanding. JUAN LUIS WALKER MD Nov 01, 2022 14:11
[2022-11-01 14:43] VITALS: BP 121/66
--- NOTE | 2022-11-01 15:32 | Diagnostic Imaging Report ---
EXAMINATION: US lower extremity venous duplex left. TECHNIQUE: Multiple real-time grayscale images were obtained over the left lower extremity in various projections. Additional spectral analysis and color Doppler duplex images were also obtained. HISTORY: Left leg swelling. Elevated D-dimer. COMPARISON: None available. FINDINGS: The left common femoral vein, deep femoral vein, superficial femoral vein and popliteal vein are patent with normal grayscale and Doppler appearance. There is normal respiratory variation and augmentation. The visualized calf vessels are patent. IMPRESSION: No DVT of the left lower extremity. Dictated by: Dictated on workstation # [id number]
== END 2022-11-01 14:43 | disposition home or self-care (01) ==
LOC: EDUNIT# 12:31 → ER 12:33
DX: M25.562 Pain in left knee (principal); R79.1 Abnormal coagulation profile; G47.30 Sleep apnea, unspecified; Z99.89 Dependence on other enabling machines and devices
CPT/HCPCS: 99281

== ENCOUNTER 2022-11-24 19:43 | Emergency (ER) | payer MEDICARE ==
--- NOTE | 2022-11-24 20:07 | ED General ---
General Chief Complaint: Neurological Problems Stated Complaint: CONFUSION/WEAKNESS Source of Information: Patient Exam Limitations: No Limitations History of Present Illness Date Seen by Provider: Nov 24, 2022 Time Seen by Provider: 19:50 Initial Comments Patient is a 72-year-old female who presents to the emergency department with a pproximately 3 days of feeling weak, tired. Her son and friend are at the bedside and states that they feel like she has been a little confused and were concerned for TIA. Patient has no complaints of unilateral numbness, weakness or tingling. No headache. She denies fevers, chills, URI symptoms or productive cough. She denies chest pain or palpitations. She states she has no t really been eating very much over the last few days. Not drinking as much as usual. She denies diarrhea, black or bloody stool. She denies dysuria, urgency or frequency. She has had a little increased swelling in her lower extremities over the last 2 to 3 months. She has seen Dr. Diza and he did not seem to be concerned about the swelling she states. She does have a history of coronary artery disease. Again no chest pain. She denies any falls or injuries. No joint pains or rashes. Timing/Duration: 3-4 Days Severity: Moderate Associated Systoms: Malaise Allergies and Home Medications Allergies Coded Allergies: phenazopyridine (Verified Allergy, Unknown, 09/11/20) levofloxacin (Verified Adverse Reaction, Mild, N/V, 09/11/20) Patient Home Medication List Home Medication List Reviewed: Yes Acetaminophen (Tylenol Extra Strength) 500 Mg Tablet, 500-1,000 MG PO Q8H PRN for PAIN-MILD (1-4), (Reported) Entered as Reported by: YANE STALEY on 04/16/20 1526 Albuterol Sulfate (Ventolin Hfa) 1 Puff Puff, 2 PUFF INH Q6H PRN for SHORTNESS OF BREATH, (Reported) Entered as Reported by: YANE STALEY on 04/12/20 1009 Albuterol Sulfate (Albuterol Sulfate) 2.5 Mg/3 Ml (0.083 %) Vial.neb, 2.5 MG INH Q4H PRN for WHEEZING Prescribed by: JUAN LUIS SIM on 10/01/22 1756 Amlodipine Besylate (Amlodipine Besylate) 10 Mg Tablet, 5 MG PO DAILY, (Reported) Entered as Reported by: YANE STALEY on 04/12/20 1009 Amoxicillin/Potassium Clav (Augmentin 500-125 Tablet) 500 Mg-125 Mg Tablet, 1 EACH PO BID Prescribed by: ENMANUEL WOMACK on 11/24/22 2232 Aspirin (Aspirin EC) 81 Mg Tablet.dr, 81 MG PO DAILY, (Reported) Entered as Reported by: MELIDA WIN on 09/10/21 0729 Atorvastatin Calcium (Lipitor) 40 Mg Tablet, 40 MG PO HS Prescribed by: TEJAL RINCON on 09/11/21 0806 Budesonide/Formoterol Fumarate (Symbicort 160-4.5 Mcg Inhaler) 10.2 Gm Hfa.aer.ad, 2 PUFF IH BID, (Reported) Entered as Reported by: YANE STALEY on 04/12/20 1009 Bupropion HCl (Wellbutrin Xl) 150 Mg Tab.er.24h, 150 MG PO DAILY, (Reported) Entered as Reported by: YANE STALEY on 04/12/20 1009 Cefdinir (Cefdinir) 300 Mg Capsule, 300 MG PO BID Prescribed by: JUAN LUIS SIM on 10/01/22 1753 Cholecalciferol (Vitamin D3) (Vitamin D3) 50 Mcg Capsule, 50 MCG PO DAILY, (Reported) Entered as Reported by: YANE STALEY on 04/12/20 1009 Clopidogrel Bisulfate (Clopidogrel) 75 Mg Tablet, 75 MG PO DAILY Prescribed by: TEJAL RINCON on 09/11/21 08 Docusate Sodium (Docusate Sodium) 100 Mg Tablet, 200 MG PO BID, (Reported) Entered as Reported by: YANE STALEY on 09/10/21 1207 Famotidine (Acid Volcanology Professor (FAMOTIDINE)) 20 Mg Tablet, 20 MG PO BID, (Reported) Entered as Reported by: MELIDA WIN on 09/10/21 0729 Furosemide (Furosemide) 20 Mg Tablet, 20 MG PO DAILY PRN for EDEMA, (Reported) Entered as Reported by: MELIDA WIN on 09/10/21 0729 Glipizide (Glipizide) 5 Mg Tablet, 5 MG PO BID WITH MEALS, (Reported) Entered as Reported by: YANE STALEY on 04/12/20 1009 Losartan Potassium (Losartan Potassium) 50 Mg Tablet, 50 MG PO BID, (Reported) Entered as Reported by: BEBETO PÉREZ on 07/20/15 0826 Metoprolol Tartrate (Metoprolol Tartrate) 100 Mg Tablet, 100 MG PO BID, (Reported) Entered as Reported by: YANE STALEY on 04/12/20 100 Modafinil (Modafinil) 200 Mg Tablet, 200 MG PO DAILY, (Reported) Entered as Reported by: MELIDA WIN on 09/10/21 0729 Multivitamin (Multivitamin) 1 Each Tablet, 1 EACH PO DAILY, (Reported) Entered as Reported by: YANE STALEY on 09/10/21 1207 Potassium Chloride (Potassium Chloride) 10 Meq Tab.er.prt, 10 MEQ PO DAILY PRN for WHEN TAKING FUROSEMIDE, (Reported) Entered as Reported by: MELIDA WIN on 09/10/21 0729 Pramipexole Di-HCl (Mirapex) 0.5 Mg Tablet, 0.5 MG PO BID, (Reported) Entered as Reported by: BEBETO PÉREZ on 07/20/15 0826 Prednisone (Prednisone) 20 Mg Tab, 40 MG PO DAILY Prescribed by: JUAN LUIS SIM on 10/01/22 1753 Pregabalin (Lyrica) 75 Mg Capsule, 75 MG PO Q12H, (Reported) Entered as Reported by: YANE STALEY on 04/12/20 100 Ubidecarenone/Vit E/Vit E Mix (Co-Enzyme Q10 100 mg Softgel) 1 Each Capsule, 1 EACH PO DAILY, (Reported) Entered as Reported by: YANE STALEY on 04/12/20 1009 Review of Systems Review of Systems Constitutional: see HPI, malaise EENTM: no symptoms reported Respiratory: no symptoms reported Cardiovascular: no symptoms reported Gastrointestinal: loss of appetite Genitourinary: no symptoms reported Musculoskeletal: no symptoms reported Skin: no symptoms reported All Other Systems Reviewed Negative Unless Noted: Yes Past Cffhqyq-Kuwvep-Raqysa Hx Immunizations Up To Date Tetanus Booster (TDap): Unknown First/Initial COVID19 Vaccinat: yes Second COVID19 Vaccination Tino: yes Third COVID19 Vaccination Date: 07/06/20 Seasonal Allergies Seasonal Allergies: No Past Medical History Surgery/Hospitalization HX: PMH: HTN, TRIPLE A, CAD Surgeries: Yes (HYST,L ROT.CUFF,BLADDER SLING X2, BILAT SACROILIAC JOINT INJECTION) Bladder Surgery, Hysterectomy, Orthopedic Respiratory: Yes Asthma, Sleep Apnea, COPD Currently Using CPAP: Yes Currently Using BIPAP: No Cardiac: Yes Coronary Artery Disease, High Cholesterol, Hypertension Neurological: No Neuropathy Reproductive Disorders: No Female Reproductive Disorders: Denies Sexually Transmitted Disease: No HIV/AIDS: No Genitourinary: Yes Kidney Stones Gastrointestinal: Yes Gastroesophageal Reflux, Chronic Constipation, Irritable Bowel Musculoskeletal: Yes Chronic Back Pain Endocrine: Yes Diabetes, 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 0.0oz. 83.658763mv; 34.00 BMI Method: General Appearance: No Apparent Distress, WD/WN Eyes: Bilateral Eye Normal Inspection, Bilateral Eye PERRL, Bilateral Eye EOMI HEENT: PERRL/EOMI, Other (dry oral mucosa) Neck: Normal Inspection Respiratory: Lungs Clear, Normal Breath Sounds, No Accessory Muscle Use, No Respiratory Distress Cardiovascular: Regular Rate, Rhythm, Normal Peripheral Pulses Gastrointestinal: Non Tender, Soft Extremity: Normal Capillary Refill, Normal Inspection, Pedal Edema (2+ pitting Bilateral LE) Neurologic/Psychiatric: Alert, Oriented x3, No Motor/Sensory Deficits, Normal Mood/Affect, instrumental teacher II-XII Norm as Tested Skin: Normal Color, Warm/Dry Progress/Results/Core Measures Suspected Sepsis SIRS Temperature: Pulse: Respiratory Rate: Laboratory Tests 11/24/22 19:50: White Blood Count 5.3 Blood Pressure / Mean: Laboratory Tests 11/24/22 19:50: Creatinine 1.57H, Platelet Count 143, Total Bilirubin 0.4 Results/Orders Lab Results Laboratory Tests Test 11/24/22 19:50 11/24/22 21:58 Range/Units White Blood Count 5.3 4.3-11.0 10^3/uL Red Blood Count 4.13 3.80-5.11 10^6/uL Hemoglobin 11.1 L 11.5-16.0 g/dL Hematocrit 37 35-52 % Mean Corpuscular Volume 89 80-99 fL Mean Corpuscular Hemoglobin 27 25-34 pg Mean Corpuscular Hemoglobin Concent 30 L 32-36 g/dL Red Cell Distribution Width 16.7 H 10.0-14.5 % Platelet Count 143 130-400 10^3/uL Mean Platelet Volume 10.6 9.0-12.2 fL Immature Granulocyte % (Auto) 1 % Neutrophils (%) (Auto) 45 42-75 % Lymphocytes (%) (Auto) 39 12-44 % Monocytes (%) (Auto) 8 0-12 % Eosinophils (%) (Auto) 6 0-10 % Basophils (%) (Auto) 1 0-10 % Neutrophils # (Auto) 2.4 1.8-7.8 10^3/uL Lymphocytes # (Auto) 2.1 1.0-4.0 10^3/uL Monocytes # (Auto) 0.4 0.0-1.0 10^3/uL Eosinophils # (Auto) 0.3 0.0-0.3 10^3/uL Basophils # (Auto) 0.0 0.0-0.1 10^3/uL Immature Granulocyte # (Auto) 0.1 0.0-0.1 10^3/uL Sodium Level 142 135-145 MMOL/L Potassium Level 4.4 3.6-5.0 MMOL/L Chloride Level 107 98-107 MMOL/L Carbon Dioxide Level 24 21-32 MMOL/L Anion Gap 11 5-14 MMOL/L Blood Urea Nitrogen 25 H 7-18 MG/DL Creatinine 1.57 H 0.60-1.30 MG/DL Estimat Glomerular Filtration Rate 34 BUN/Creatinine Ratio 16 Glucose Level 133 H 70-105 MG/DL Calcium Level 10.1 8.5-10.1 MG/DL Corrected Calcium 10.0 8.5-10.1 MG/DL Total Bilirubin 0.4 0.1-1.0 MG/DL Aspartate Amino Transf (AST/SGOT) 16 5-34 U/L Alanine Aminotransferase (ALT/SGPT) 18 0-55 U/L Alkaline Phosphatase 110 40-136 U/L Total Protein 6.8 6.4-8.2 GM/DL Albumin 4.1 3.2-4.5 GM/DL Urine Color YELLOW Urine Clarity CLOUDY Urine pH 6.0 5-9 Urine Specific [place] >=1.030 1.016-1.022 Urine Protein TRACE H NEGATIVE Urine Glucose (UA) NEGATIVE NEGATIVE Urine Ketones NEGATIVE NEGATIVE Urine Nitrite POSITIVE H NEGATIVE Urine Bilirubin NEGATIVE NEGATIVE Urine Urobilinogen 0.2 < = 1.0 MG/DL Urine Leukocyte Esterase 2+ H NEGATIVE Urine RBC (Auto) 1+ H NEGATIVE Urine RBC 2-5 H /HPF Urine WBC 25-50 H /HPF Urine Squamous Epithelial Cells 0-2 /HPF Urine Crystals NONE /LPF Urine Bacteria LARGE H /HPF Urine Casts PRESENT /LPF Urine Hyaline Casts 0-2 H /LPF Urine Mucus NEGATIVE /LPF Urine Culture Indicated YES My Orders Orders - ENMANUEL WOMACK MD Ed Iv/Invasive Line Start (11/24/22 20:10) Cbc With Automated Diff (11/24/22 20:10) Comprehensive Metabolic Panel (11/24/22 20:10) Ua Culture If Indicated (11/24/22 20:10) Ekg Tracing (11/24/22 20:10) Chest 1 View, Ap/Pa Only (11/24/22 20:10) Ns Iv 500 Ml (Sodium Chloride 0.9%) (11/24/22 20:10) Urine Culture (11/24/22 21:58) Ceftriaxone Iv/Im (Rocephin Iv/Im) (11/24/22 22:30) Medications Given in ED Current Medications Medications Dose Ordered Sig/Jeramy Route Start Time Stop Time Status Last Admin Dose Admin Ceftriaxone Sodium 1000 mg/ Sodium Chloride 50 ml @ 100 mls/hr ONCE ONCE IV 11/24/22 22:30 11/24/22 22:59 11/24/22 22:41 100 MLS/HR Vital Signs/I&O 11/24/22 19:47 Temp 36.8 Pulse 74 Resp 16 B/P (MAP) 122/61 (81) Pulse Ox 95 O2 Delivery Room Air Capillary Refill : Progress Note : Time: 22:29 Progress Note Patient seen and evaluated by me. Evaluation today includes physical exam, CBC, Chem-12, urinalysis, EKG and single view chest x-ray. Pertinent physical exam findings elderly female in no acute distress, appears slightly tired. Vital signs are stable. She is not tachycardic, she is not febrile. She is not hypoxic. Heart is regular, lungs are clear, abdomen is soft and nontender. She has 2+ pitting edema in her bilateral lower extremities. She has no focal neur ologic deficits. No facial droop no unilateral weakness numbness or tingling. Cranial nerves are intact. Differential diagnosis based on history and physical exam metabolic derangement, dehydration, urinary tract infection, occult pneumonia. Labs independently reviewed and interpreted by me. CBC shows a normal white blood cell count with a hemoglobin of 11.1 hematocrit of 37. Chemistry remarkable for BUN of 25, creatinine of 1.57. Patient has a history of chronic kidney disease. Her blood sugar is 133. Urinalysis shows high specific gravity of greater than 1.030. Positive nitrites, 2+ leukocyte esterase, 1+ blood and 25-50 white blood cells per high-powered field. Large bacteria are noted. Chest x-ray is unremarkable for any effusion or infiltrate. Her EKG shows normal sinus rhythm at approximately [address] segment change. Patient is treated in the emergency department with a 500 mL normal saline bolus, 1 g of Rocephin given for urinary tract infection. She has no evidence of electrolyte disturbance. She does not have pneumonia. She does look mildly dehydrated with dry oral mucosa. Encouraged to drink more water at home. We will start her on Augmentin 500 mg twice daily for 7 days. I have reviewed prior urine culture from September 2022 which showed Klebsiella in her urine that was sensitive to Augmentin. Patient is given return precautions and both verbal and written format. She is advised to follow-up with her primary care doctor in 1 week. All questions are sought and answered. Patient is stable for discharge. ECG Initial ECG Impression Date: Nov 24, 2022 Initial ECG Impression Time: 20:20 Initial ECG Rate: 66 Initial ECG Rhythm: Normal Sinus Initial ECG Intervals: Normal Initial ECG Impression: Normal Diagnostic Imaging Diagonstic Imaging: Xray Plain Films/CT/US/NM/MRI: chest Comments [facility] [place], [place] NAME: [facility] REC#: [id number] PT STATUS: REG ER : 1950 PHYSICIAN: ENMANUEL WOMACK MD ADMIT DATE: 11/24/22/ER Signed Date of Exam:11/24/22 CHEST 1 VIEW, AP/PA ONLY INDICATION: Weakness. Comparison is made with prior examination of 01/23/2022. FINDINGS: There is cardiomegaly. The lungs are otherwise clear. There is no pleural effusion or pneumothorax. The mediastinum is unremarkable. IMPRESSION: No acute cardiopulmonary abnormality Cardiomegaly Dictated by: Dictated on workstation # [id number] Dict: 11/24/222033 Trans: 11/24/222045 [facility] [id number] Interpreted by: LAILA PIÑA MD Electronically signed by: LAILA PIÑA MD 11/24/222045 Departure Impression Primary Impression: Urinary tract infection Qualified Codes: N30.01 - Acute cystitis with hematuria Disposition: HOME, SELF-CARE Condition: Stable Departure-Patient Inst. Decision time for Depature: 22:30 Referrals: ANA MONTOYA MD (PCP/Family) Primary Care Physician Patient Instructions: Urinary tract infections in adults Add. Discharge Instructions: You need to really push your fluids over the next 24 to 48 hours. Elevate your legs at night to help keep the swelling down. Start the antibiotics tomorrow evening, Augmentin 500 mg twice a day for 7 days. This medication can cause a little diarrhea, be aware. If you develop a fever, nausea and vomiting or any other emergent, concerning sy mptoms please return to the emergency department for reevaluation. Please follow-up with your primary care provider next week. Scripts Amoxicillin/Potassium Clav (Augmentin 500-125 Tablet) 500 Mg-125 Mg Tablet 1 EACH PO BID for 7 Days, #14 TAB Prov: ENMANUEL WOMACK MD 11/24/22 Copy Copies To 1: ANA MONTOYA MD, KATHRYN M MD Nov 24, 2022 20:07
[2022-11-24] MEDS ORDERED: NS IV 500 ML 500 ML IV STA (20:10)
[2022-11-24 20:16] LABS: BASOPHILS % (AUTO) 1 % (0-10); EOSINOPHILS # (AUTO) 0.3 10^3/uL (0.0-0.3); EOSINOPHILS % (AUTO) 6 % (0-10); HEMATOCRIT 37 % (35-52); HEMOGLOBIN 11.1 g/dL (11.5-16.0); LYMPHOCYTES # (AUTO) 2.1 10^3/uL (1.0-4.0); LYMPHOCYTES % (AUTO) 39 % (12-44); MEAN CORPUSCULAR HEMOGLOBIN 27 pg (25-34); MEAN CORPUSCULAR HGB CONC 30 g/dL (32-36); MEAN CORPUSCULAR VOLUME 89 fL (80-99); MEAN PLATELET VOLUME 10.6 fL (9.0-12.2); MONOCYTES # (AUTO) 0.4 10^3/uL (0.0-1.0); MONOCYTES % (AUTO) 8 % (0-12); NEUTROPHILS # (AUTO) 2.4 10^3/uL (1.8-7.8); NEUTROPHILS % (AUTO) 45 % (42-75); PLATELET COUNT 143 10^3/uL (130-400); WHITE BLOOD COUNT 5.3 10^3/uL (4.3-11.0)
[2022-11-24 20:18] LABS: ALBUMIN 4.1 GM/DL (3.2-4.5); POTASSIUM 4.4 MMOL/L (3.6-5.0)
[2022-11-24 20:19] LABS: CALCIUM 10.1 MG/DL (8.5-10.1)
[2022-11-24 20:21] LABS: TOTAL PROTEIN 6.8 GM/DL (6.4-8.2)
[2022-11-24 20:22] LABS: BILIRUBIN,TOTAL 0.4 MG/DL (0.1-1.0)
[2022-11-24 20:24] LABS: CREATININE SERUM 1.57 MG/DL (0.60-1.30)
--- NOTE | 2022-11-24 20:38 | Diagnostic Imaging Report ---
INDICATION: Weakness. Comparison is made with prior examination of 01/23/2022. FINDINGS: There is cardiomegaly. The lungs are otherwise clear. There is no pleural effusion or pneumothorax. The mediastinum is unremarkable. IMPRESSION: No acute cardiopulmonary abnormality Cardiomegaly Dictated by: Dictated on workstation # [id number]
[2022-11-24 22:06] LABS: BILIRUBIN,URINE NEGATIVE (NEGATIVE); CLARITY,URINE CLOUDY; COLOR,URINE YELLOW; GLUCOSE, URINE (UA) NEGATIVE (NEGATIVE); KETONES,URINE NEGATIVE (NEGATIVE); LEUKOCYTE ESTERASE ,URINE 2+ (NEGATIVE); NITRITE,URINE POSITIVE (NEGATIVE); PROTEIN,URINE TRACE (NEGATIVE)
[2022-11-24 22:19] LABS: WBC,URINE 25-50 /HPF
[2022-11-24 22:20] LABS: BACTERIA,URINE LARGE /HPF; HYALINE CASTS, URINE 0-2 /LPF; SQUAMOUS EPITHELIAL CELL,UR 0-2 /HPF
[2022-11-24] MEDS ORDERED: cefTRIAXone IV/IM 1,000 MG in NS (IVPB) 50 ML IV ONE (22:30)
[2022-11-24] MEDS ORDERED: AMOX-355 PO (22:32)
[2022-11-24 22:56] VITALS: BP 110/65
== END 2022-11-24 22:57 | disposition home or self-care (01) ==
LOC: EDUNIT# 19:43 → ER 19:45
DX: N39.0 Urinary tract infection, site not specified (principal); G47.30 Sleep apnea, unspecified; Z99.89 Dependence on other enabling machines and devices; Z88.1 Allergy status to other antibiotic agents
CPT/HCPCS: 36415; 71045; 80053; 81000; 85025; 87077; 87088; 87186; 93005

== ENCOUNTER → 2023-04-16 | Outpatient (CLI) | payer MEDICARE ==
[~2023-04-16] MED LIST changes: +AMOX-355 PO; +FAMO-356 PO; -FAMO20TA3 PO; -GLIP5TAB13 PO; +GLIP5TAB23 PO
--- NOTE | 2023-04-16 12:47 | Diagnostic Imaging Report ---
Indication: Routine screening. Comparison is made with prior mammogram 04/01/2022 and 06/25/2020. 2-D and 3-D bilateral screening mammography was performed with CAD. The current study was also evaluated with a Computer Aided Detection (CAD) system. Both breasts are heterogeneously dense, limiting the sensitivity of mammography. Rounded masses and benign calcifications in both breasts appear to be similar to prior exam. No new mass or malignant-appearing microcalcifications are identified. Axillae are unremarkable. IMPRESSION: BI-RADS Category 2 No mammographic features suspicious for malignancy are identified. ACR BI-RADS Category 2: Benign findings. Result letter will be mailed to the patient. Note: At least 10% of breast cancer is not imaged by mammography. Dictated by: Dictated on workstation # [id number]
== END ==
LOC: RAD 08:04
PROVIDERS: ATTEND Physician Assistant
DX: Z12.31 Encounter for screening mammogram for malignant neoplasm of breast (principal)
CPT/HCPCS: 77063; 77067

== ENCOUNTER → 2023-04-29 | Outpatient (CLI) | payer MEDICARE ==
[~2023-04-29] VITALS: Ht 170.2 cm; Wt 97.5 kg
[~2023-04-29] MED LIST changes: +NS IV 1000 ML 1,000 ML IV SCH
[2023-04-29 15:15] VITALS: BP 125/71
== END ==
LOC: SDC 14:28
PROVIDERS: ATTEND Nurse Practitioner Family
DX: E86.0 Dehydration (principal)
CPT/HCPCS: 96360; 96361